=== PATIENT | male | born 1965 | race Hispanic/Latino ===

== ENCOUNTER 2017-12-08 17:49 | Emergency (ER) | payer BC, SELFPAY ==
[2017-12-08 17:50] VITALS: BP 130/66; PULSE 102; RESP 18; TEMP 37.1; O2SAT 99; BMI 34.8
[2017-12-08] MEDS: Diphth,Pertuss(Acell),Tet Vac 0.5 ML Vial IM (18:26)
--- NOTE | 2017-12-08 18:35 | ED.DCSUM_ITS ---
- ER Visit Summary Date of Service: 12/08/17 Chief Complaint: Laceration History of Present Illness: The patient is a [address] Collin Livingston III. He is right-hand dominant. He reports that he suffered a laceration to his left palm at work approximately 4 hours ago. He denies any pain. He is unsure when his last tetanus shot was. He denies any paresthesias distally. Physical Examination: Vitals: Stable. Afebrile. General: Well-nourished and well-developed. Head: Normocephalic atraumatic. Neck: Supple, no lymphadenopathy. No JVD. Nontender. Cardiovascular: Regular rate and rhythm. No murmurs. Respiratory: No respiratory distress. Clear to auscultation bilaterally. Abdominal: Soft, nontender, nondistended, normal bowel sounds. No guarding, rebound, or peritoneal signs. Back: Nontender. Extremities: Nontender, no edema. Skin: 1.5 cm L-shaped laceration over the distal portion of his second metacarpal on the palmar surface of his hand. He is neurovascular intact distally. Neurologic: Alert and oriented ?3. Cranial nerves II through XII are intact. Normal strength and sensation. Psych: Normal affect. Emergency Department Course and Treatment: I discussed treatment options with the patient and he has chosen to allow this to heal by secondary intention. He had his tetanus updated. Treatment Plan: He will be discharged instructions to follow-up Dr. Collin Livingston III as needed. Return to the emergency department for any worsening symptoms. Disposition: To home in improved and stable condition. Impression: 1. Laceration left palm, 1.5 cm, not repaired. This note was generated with [employer] dictation software. It may contain incorrect words, spelling, and punctuation that were not noted in review of the chart prior to signing ED Disposition - Plan for ED Patient: Disposition: Home or Assisted Living Chief Complaint: Laceration Instructions: ED Laceration Small Superf No Sutr Prescriptions: Mupirocin Calcium [Bactroban] 30 gm TP 4X/DAY #1 tube Referrals: Collin Livingston III, MD [Primary Care Provider] - As Needed
[2017-12-08 18:45] VITALS: RESP 19
== END 2017-12-08 18:46 | disposition home or self-care (01) ==
LOC: ED 18:23
PROVIDERS: Emergency Provider Emergency Medicine; Family Provider Family Medicine; PCP Family Medicine
DX: S61.412A Laceration without foreign body of left hand, initial encounter (principal); X58.XXXA Exposure to other specified factors, initial encounter; Y93.9 Activity, unspecified; Y92.9 Unspecified place or not applicable; Y99.0 Civilian activity done for income or pay
CPT/HCPCS: 90715; 99283

== ENCOUNTER 2020-09-23 14:56 | Outpatient (RCR) | payer OTHER, SELFPAY ==
[2020-10-14] MEDS: COVID-19 VACC, MRNA(PFIZER)/PF 30 MCG/0.3 ML SYRINGE IM (07:59)
== END 2020-12-16 23:59 ==
LOC: IMMUN 14:56
PROVIDERS: PCP Family Medicine; Referring Provider Family Medicine; Visit Provider Family Medicine
DX: Z23 Encounter for immunization (principal)
CPT/HCPCS: 0001A; 0002A; 91300

== ENCOUNTER 2022-10-08 21:28 | Emergency (ER) | payer OTHER, SELFPAY ==
[2022-10-08 21:28] VITALS: BP 186/71; PULSE 96; RESP 16; TEMP 36.6; O2SAT 97; BMI 34.1
--- NOTE | 2022-10-08 22:43 | CT_ITS ---
EXAM: CT HEAD WITHOUT INTRAVENOUS CONTRAST CLINICAL INDICATION: head injury TECHNIQUE: Multiple axial images were obtained of the head without intravenous contrast. This CT exam was performed using one or more of the following dose reduction techniques: automated exposure control, adjustment of the mA and/or kV according to patient size, and/or use of iterative reconstruction technique. This report was created using CAD Best report generation technology. RADIATION DOSE: CTDIvol = 44.99 mGy, DLP = 846.73 mGy-cm. COMPARISON: None. FINDINGS: BRAIN AND EXTRA-AXIAL SPACES: Unremarkable. No intra- or extra-axial hemorrhage. No evidence of acute infarct. No intracranial mass or mass effect. There is preservation of the corona/white matter interface. Posterior fossa structures are unremarkable. Ventricles are appropriate for age. No hydrocephalus. Basal cisterns are patent. BONES/JOINTS: Unremarkable. No discrete lytic or blastic abnormalities. SOFT TISSUES: Large right parietal scalp hematoma. SINUSES: Unremarkable as visualized. Clear. MASTOID AIR CELLS: Unremarkable. Clear. ORBITS: Visualized globes, extraocular muscles, optic nerves and retrobulbar fat appear unremarkable. CT/Brain/Head without Contrast IMPRESSION: 1. Large right parietal scalp hematoma. 2. No acute intracranial abnormality. Electronically Signed: Ke Davila MD at 23:01 EDT ,
--- NOTE | 2022-10-08 22:55 | EX.ED.DYSGE1 ---
HPI History of Present Illness Chief Complaint: Head Injury Narrative Narrative: Patient is a 56-year-old male with no significant reported past medical history. He states around 430 to 5 PM this evening he was standing on a step in his basement roughly 2-3 steps up when the step broke. This caused him to fall backwards and he struck the back of his head on the concrete floor. He denies any loss of consciousness history of bleeding disorder or blood thinner use. He states he was able to get up and ambulate and since that time has had just mild headache but denies light sensitivity change in vision nausea or vomiting. Family came over and noticed the cut to the back of his head and with the report of trauma have concern that he could have underlying brain damage and or need sutures and therefore he presents for evaluation [facility] Medical History no medical history no medical history Home Medications mupirocin calcium 2 % topical cream 30 gm TP 4X/DAY #1 tube 12/08/17 [Rx Last Taken Unknown] Allergy/AdvReac Type Severity Reaction Status Date / Time No Known Allergies Allergy Verified 10/08/22 21:30 Social History Smoking Status: Former smoker ROS ROS ED Constitutional Constitutional ED: Denies chills or fever(s) Eyes Eyes: Denies blurry vision or change in vision ENT ENT ED: Denies sore throat Cardiovascular Cardiovascular: Denies chest pain Respiratory/Chest Respiratory/Chest: Denies cough or dyspnea Gastrointestinal Gastrointestinal: Denies abdominal pain, diarrhea, nausea or vomiting Genitourinary Genitourinary ED: Denies dysuria Musculoskeletal Musculoskeletal: Denies myalgias or neck pain Integumentary Reports other Details: Positive scalp laceration ; Denies rash Neurologic Neurologic: Reports headache(s); Denies paresthesias or weakness Hematologic/Lymphatic Hematologic/Lymphatic: Denies easy bleeding or easy bruising EXAM Physical Exam Const Vital Signs: 10/08/22 21:28 10/08/22 22:07 Temperature 97.8 F Temperature Source Temporal Pulse Rate 96 Respiratory Rate 16 Respiratory Effort Normal Non-Labored Respiratory Depth Normal Respiratory Pattern Normal Blood Pressure 186/71 H Blood Pressure Mean 109 Pulse Ox 97 Oxygen Delivery Method Room Air Room Air Positive well nourished and well developed General Appearance ED: well developed HEENT HEENT Narrative: Patient has a 1 x 2 hematoma to the mid to right sided occipital portion of his scalp. There is a 1.5 cm linear laceration that is subcutaneous layer deep with minimal ooze of blood in the center of this consistent with trauma. No signs of depressed or basilar skull fracture Eyes PERRL and EOMs intact bilaterally Neck supple Neck Narrative: No midline pain with palpation no bony deformity or step-off of the cervical spine. Patient has full active range of motion without pain Chest Wall palpation of chest normal Resp normal respiratory effort and clear to auscultation bilaterally Cardio regular rate and regular rhythm Back/Spine Back/Spine Narrative: No bony deformity or step-off of the thoracic or lumbar spine no midline pain with palpation Extremity normal to inspection Extremity Narrative: Pelvis is stable there is no shortening or external rotation of either lower extremity. Patient is able to move all extremities without difficulty Neuro oriented x3 and CN's II-XII intact bilaterally Sensorium / Orientation: alert Psych mental status grossly normal Skin Skin Narrative: Hematoma and scalp laceration as documented above MDM MDM MDM Narrative Medical decision making narrative: Patient arrived to the ER 5 to 6 hours after the report of his injury. He also stated it was a mechanical fall and therefore there is no need for cardiac or syncope work-up. He has mild headache but otherwise no light sensitivity change in vision nausea vomiting or signs of depressed/basilar skull fracture. Still as he struck the occipital portion of his head there is concern that this would be present and I elected to perform a CT scan of the head. He has no midline neck tenderness and moves his neck in all directions without pain so I felt no need for a CT of the cervical spine. Head CT confirmed a right scalp hematoma consistent with his trauma but there is no underlying skull fracture or brain bleed. The patient's tetanus status was updated because of the laceration and the wound was closed with maurisio as documented below. At this time as the wound is closed and CT shows no signs of internal injury such as skull fracture or brain bleed he is otherwise safe for discharge Patient had the scalp laceration cleaned with chlorhexidine. It was anesthetized with 5 mL of 2% lidocaine with epinephrine in local fashion. The wound was copiously irrigated with normal saline. Then 5 maurisio were placed in the wound bring the edges together with good approximation. Patient tolerated procedure well without complication History & Record Review Discussion w/independent historian: Patient and Family Radiography Diagnostic Testing: Clinical Impression(s) from Imaging Studies Brain CT 10/08/22 22:43 IMPRESSION: 1. Large right parietal scalp hematoma. 2. No acute intracranial abnormality. Electronically Signed: Ke Davila MD at 23:01 EDT , Discharge Plan Triage Chief Complaint: Head Injury ED Provider: Dg Delong Dx/Rx/DC Orders Clinical Impression: Laceration of scalp, Hematoma of occipital region of scalp, Closed head injury Instructions: ED Hematoma, ED Laceration Scalp Stitches or Lerna Prescriptions: No Action mupirocin calcium 15 GM cream 30 gm TP 4X/DAY Qty: 1 0RF Primary Care Provider: Marvel Fung Referrals: NOT,DEFINED [Non-Staff] - Disposition Disposition: Home, Self Care Discharge Date/Time: 10/09/22 00:31
[2022-10-09] MEDS: Diphth,Pertuss(Acell),Tet Vac 0.5 ML Vial IM (00:03)
[2022-10-09] MEDS: Lidocaine 2% /Epi 1:100 (20ml) 20 ML VIAL INFILT (00:11)
== END 2022-10-09 00:31 | disposition home or self-care (01) ==
LOC: ED 23:06
PROVIDERS: Emergency Provider Emergency Medicine; PCP Family Medicine; Visit Provider Emergency Medicine
DX: S01.01XA Laceration without foreign body of scalp, initial encounter (principal); S06.310A Contusion and laceration of right cerebrum without loss of consciousness, initial encounter; Z87.891 Personal history of nicotine dependence; W10.9XXA Fall (on) (from) unspecified stairs and steps, initial encounter; Z23 Encounter for immunization
CPT/HCPCS: 12001; 70450; 90471; 90715; 96372; 99282; A4216

== ENCOUNTER 2023-06-30 04:14 | Emergency (ER) | payer OTHER, SELFPAY ==
--- NOTE | 2023-06-30 04:17 | ED.VIS.BACK ---
HPI History of Present Illness Chief Complaint: Back [facility] Medical History (Updated 06/30/23 @ 04:23 by Sanket Millan) Diabetes Home Medications cyclobenzaprine 10 mg tablet 10 mg PO TID PRN PRN muscle spasm 06/30/23 [History Last Taken Unknown] metformin 500 mg tablet,extended release 24 hr 500 mg PO BID 06/30/23 [History Last Taken Unknown] prednisone 20 mg tablet 40 mg PO DAILY 06/30/23 [History Last Taken Unknown] sertraline 50 mg tablet 50 mg PO QHS 06/30/23 [History Last Taken Unknown] Allergy/AdvReac Type Severity Reaction Status Date / Time No Known Allergies Allergy Verified 06/30/23 04:24 Social History Smoking Status: Former smoker EXAM Physical Exam Const Vital Signs: 06/30/23 04:20 Temperature 97.2 F L Temperature Source Temporal Pulse Rate 78 Respiratory Rate 18 Blood Pressure 152/80 H Blood Pressure Mean 104 Pulse Ox 98 Oxygen Delivery Method Room Air MDM MDM MDM Narrative Medical decision making narrative: HISTORY OF PRESENT ILLNESS: 57-year-old male presents with back pain. Notes 2 days of back pain. There is no sign event. No falls. No recent trauma. Does not really increasing activity. Patient denies any saddle anesthesia, urinary tension, bowel or bladder incontinence, lower extremity weakness, fever or IV drug use, no recent spinal manipulation or surgery, no recent urinary catheterization. REVIEW OF SYSTEMS: All other systems reviewed and are negative except as noted in the history of present illness. At least 10 review of systems reviewed and are negative except as noted in history of present illness. PHYSICAL EXAM: Nursing triage notes reviewed, Vital signs reviewed Constitutional: please see mdm HENT: MMM Eyes: Pupils equal round and reactive to light, Extraocular muscles intact Neck: No stridor, no JVD, full neck ROM Lungs: Clear to auscultation, No wheezing or rales. No increased work of breathing, no conversational dyspnea, no accessory muscle use, no nasal flaring. No respiratory distress noted Heart: Regular rate and rhythm, No murmurs, No rubs and No gallops, 2+ distal pulses (radial, femoral, posterior tibial) in all extremities Abdomen: Soft, there is no tenderness, rigidity, rebound or guarding, no obvious peritoneal signs, no palpable pulsatile abdominal masses, no auscultated abdominal bruit : No CVAT Extremities: No edema Back: No midline step-offs or deformities Neuro: Intact sensation L1-S1 dermatomal distributions. Intact 5/5 strength in hip flexion (T12-L3). Knee extension (L2-L4). Ankle dorsiflexion (L4-L5). Ankle plantar flexion (S1). Great toe extension (L5). 2+ patellar and Achilles DTRs. Skin: No rash or lesions noted MEDICAL DECISION MAKING: Chief Complaint: Back pain External records reviewed: Imaging studies reviewed: No prior imaging of the axial skeleton Factors affecting care: Type 2 diabetes Social determinants of health: No IV drug use History obtained from others: Patient's daughter Consults: none ALL IMAGES (IF OBTAINED) HAVE BEEN PERSONALLY REVIEWED AND INTERPRETED BY MYSELF. MDM Narrative: The patient was hemodynamically stable, afebrile, nontoxic-appearing. Exam with TTP over right lateral lumbar spine. There is no trauma to suggest bony injury. There is no indication for imaging at this time. Patient with p.o. Valium, IM Toradol, lidocaine patches do not p.o. Tylenol. Noted only minimal improvement. I considered the following differential diagnosis: Musculoskeletal back pain, space-occupying lesion of the spinal (epidural abscess, epidural hematoma), cauda equina, conus medullaris, fracture dislocation, AAA, nephrolithiasis, pyelonephritis, aortic dissection The patient presented complaining of back pain. There was no history of recent fall or trauma. There was no evidence to support genitourinary etiology. There is also no evidence to suggest vascular pathology such as AAA dissection. No fevers or other evidence to suspect infectious processes, abscess, osteomyelitis etc. The patient?s neurological exam is normal with normal motor and sensory. There is no saddle paresthesias reported and no bowel or bladder incontinence or retention. I suspect the pain is mechanical in nature. Clinical suspicion, plan of care and management was discussed with the patient. The patient was instructed to follow up with their health care provider. The patient was also instructed to return if the pain worsened, changed, or developed weakness or bowel or bladder trouble. The patient agreed with plan. I completed a structured, evidence-based clinical evaluation to screen for acute non-traumatic spinal emergencies. The patient has a normal detailed neurologic exam and red flag historical factors were negative. The evidence indicates that the patient is very low risk for an acute spinal emergency and this is consistent with my clinical intuition. The risk of further workup is higher than the likelihood of the patient having a spinal epidural abscess or other dangerous emergency spinal condition. It is, therefore, in the patient?s best interest not to do additional emergent testing at this time. Shared Decision-Making I have discussed with the patient my clinical impression and the result of an evidence-based clinical evaluation to screen for spinal epidural abscess and other spinal emergencies, as well as the risk of further testing and hospitalization. The evidence shows that the risk for an acute spinal emergency is less than 1%. Although the risk of an acute spinal emergency has not been completely eliminated, the risks of further testing likely exceed any potential benefit, and the patient agrees with not pursuing further emergent evaluation for causes of back pain at this time. The patient and/or family, caregivers express understanding. The patient and/or family, caregivers agrees with the plan. Total critical care time today provided was at least 0 minutes. This excludes separately billable procedures. Critical care time (if documented) is secondary to the patient having high probability of clinically significant/life threatening deterioration in the patient's condition which required my urgent intervention. 1. Lumbar radiculopathy Disposition: Discharge home Migel Loyola DO Discharge Plan Triage Chief Complaint: Back ED Provider: Migel Loyola Dx/Rx/DC Orders Instructions: Understanding Lumbar Radiculopathy Prescriptions: No Action cyclobenzaprine 10 mg tablet 10 mg PO TID PRN PRN (Reason: muscle spasm) Patient Comments: take 1 tablet by mouth three times a day if needed for muscle spasm metformin 500 mg tablet extended release 24 hr 500 mg PO BID prednisone 20 mg tablet 40 mg PO DAILY Patient Comments: take 2 tablets by mouth once daily for 5 days sertraline 50 mg tablet 50 mg PO QHS Stand Alone Forms: ED Work / School Excuse, Work / School Excuse Primary Care Provider: Marvel Fung Referrals: Marvel Fung MD [Primary Care Provider] - Activity Restrictions/Additional Instructions: Thank you for trusting us with your care today! Please take Tylenol (2 pills, 650 mg), ibuprofen (2 pills, 400 mg) every 6 hours as needed for pain and fever control. Please go to your pharmacy or drugstore and obtain Salonpas lidocaine patches. Please return to the emergency department if your symptoms change or worsen. Specifically develop bowel or bladder incontinence, urinary retention, weakness or loss sensation in your legs, urinary retention. Please follow with your primary care physician for further outpatient evaluation and management. Disposition Disposition: Home, Self Care Discharge Date/Time: 06/30/23 05:08
[2023-06-30 04:20] VITALS: BP 152/80; PULSE 78; RESP 18; TEMP 36.2; O2SAT 98; BMI 33.9
[2023-06-30] MEDS: Acetaminophen 325 MG Tablet 650 MG PO (04:46)
[2023-06-30] MEDS: diazePAM 2 MG Tablet 4 MG PO (04:46)
[2023-06-30] MEDS: Lidocaine 5% Patch 1 PATCH TOPICAL (04:47)
[2023-06-30] MEDS: Ketorolac 15 MG/ML Vial IM (04:49)
[2023-06-30 05:04] VITALS: PULSE 81; RESP 18; O2SAT 96
== END 2023-06-30 05:08 | disposition home or self-care (01) ==
LOC: ED 04:41
PROVIDERS: Emergency Provider Emergency Medicine; PCP Family Medicine; Visit Provider Emergency Medicine
DX: M54.16 Radiculopathy, lumbar region (principal); E11.9 Type 2 diabetes mellitus without complications; Z87.891 Personal history of nicotine dependence
CPT/HCPCS: 96372; 99283

== ENCOUNTER 2025-03-11 01:30 | Emergency (ER) | payer OTHER, SELFPAY ==
[2025-03-11 01:30] VITALS: BP 154/71; PULSE 66; RESP 16; TEMP 36.8; O2SAT 97; BMI 32.3
--- NOTE | 2025-03-11 02:49 | EKG12_ITS ---
Test Reason : Blood Pressure : */* mmHG Vent. Rate : 67 BPM Atrial Rate : 67 BPM P-R Int : 142 ms QRS Dur : 102 ms QT Int : 422 ms P-R-T Axes : 60 16 57 degrees QTcB Int : 445 ms Normal sinus rhythm with sinus arrhythmia Nonspecific T wave abnormality Abnormal ECG Confirmed by Ke Bravo ([id number]), staff editor GIO LEÓN ([id number]) on 03/12/2025 10:47:11 AM Referred By: Confirmed By: Ke Bravo
--- NOTE | 2025-03-11 03:00 | RAD_ITS ---
PROCEDURE: CHEST PA AND LATERAL 03/11/2025 REASON FOR EXAM: SOB TECHNIQUE: Procedure Code: RADCXR Modality: DX Procedure: CHEST PA AND LATERAL COMPARISON: None. FINDINGS: The lungs are expanded. There is no demonstrated parenchymal abnormality. There is no demonstrated pleural abnormality. Normal heart and pericardium. Normal mediastinum and jackie. Normal visualized pulmonary arteries. Normal visualized aortic arch and descending thoracic aorta. Normal visualized thoracic spine. Normal visualized ribs, clavicles, and shoulders. There is no demonstrated abnormality of the visualized soft tissue structures of the upper abdomen. RAD/Chest PA and Lateral IMPRESSION: No evidence for acute abnormality. Reading [facility]
[2025-03-11 03:03] LABS: Hematocrit 37.6 % (40-54); Hemoglobin 12.8 g/dL (13.0-16.5); Immature Granulocytes Count 0.020 X10^3/uL (0.0-0.0); Mean Corp Hgb Conc 34.0 g/dL (32-36); Mean Corpuscular Volume 87.4 fL (80-94); Mean Platelet Vol. 9.3 fl (6.2-12.0); NRBC Flagged by Analyzer 0 % (0-5); Platelet Count 248 K/mm3 (150-450); RBC Distribution Width CV 13.0 % (11.6-14.6); RBC Distribution Width SD 41.4 fl (35.1-43.9); Red Blood Count 4.30 M/mm3 (4.6-6.2); White Blood Count 7.1 K/mm3 (4.4-11.0)
[2025-03-11 03:32] LABS: Anion Gap 12 (5-15); BUN 25 mg/dL (4-19); BUN/Creat Ratio 29.3 RATIO (10-20); Calcium,Total 8.9 mg/dL (7.6-11.0); Carbon Dioxide 20.7 mmol/L (21.0-32.0); Chloride 104 mmol/L (98-108); Estimated Creatinine Clearance 97.52 ml/min (50-250); Glucose 164 mg/dL (70-99); Potassium 3.8 mmol/L (3.3-5.1)
--- OUTSIDE RECORDS SUMMARY | 2025-03-11 04:06 | XMS RPT_ITS | CCD ---
Author Organization [facility] Care Team Providers Care Marriage And Family Social Worker Name Role Phone Marvel Collado MD Primary Care Provider Rigoberto Shrestha MD Primary Care Provider Rigoberto Shrestha MD Primary Care Provider Marvel Collado MD Primary Care Provider Haagen FUELS ENGINEER.Sowmya AVILA Unavailable Suppan FUELS ENGINEER.Natalie AVILA Unavailable Suppan FUELS ENGINEER.AUSTIN, Natalie A Unavailable [phone] Marvel Collado Referring Unavailable Kenton, Marvel Primary Care Unavailable Omi Guerra Attending Unavailable HENRIETTA, RIGOBERTO Primary Care Unavailable HENRIETTA, RIGOBERTO Referring Unavailable HENRIETTA, RIGOBERTO Primary Care Unavailable HENRIETTA, RIGOBERTO Primary Care Unavailable MARVEL KNIGHT Referring Unavailable HENRIETTA, RIGOBERTO Primary Care Unavailable HENRIETTA, RIGOBERTO Primary Care Unavailable HENRIETTA, RIGOBERTO Referring Unavailable HENRIETTA, RIGOBERTO Primary Care Unavailable RIGOBERTO SHRESTHA Attending Unavailable HENRIETTA, RIGOBERTO Primary Care Unavailable HENRIETTA, RIGOBERTO Attending Unavailable UCHE OSEGUERA Referring Unavailab le HENRIETTA, RIGOBERTO Primary Care Unavailable HENRIETTA, RIGOBERTO Primary Care Unavailable UCHE OSEGUERA Attending Unavailab le HENRIETTA, RIGOBERTO Primary Care Unavailable MARVEL KNIGHT Attending Unavailable Medications Current Medications Medication Drug Class(es) Dates Sig (Normalized) Sig (Original) acyclovir 0.05 mg/mg topical ointment (3 sources) Herpesvirus Nucleoside Analog DNA Polymerase Inhibitor, Herpes Simplex Virus Nucleoside Analog DNA Polymerase Inhibitor, Herpes Zoster Virus Nucleoside Analog DNA Polymerase Inhibitor Start: 11-04-2021 End: 11-08-2021 acyclovir (ZOVIRAX) 5 % ointment Apply to affected area five times daily for 4 days. 5 g 5 11/04/2021 11/08/2021 Active Start: 10-22-2021 End: 10-26-2021 acyclovir (ZOVIRAX) 5 % crea Apply 1 application to affected area five times daily for 4 days. Use for 4 days with viral sores. Location: lips 5 g 5 10/22/2021 10/26/2021 Start: 07-30-2020 acyclovir (ZOV IRAX) 5 % crea Apply 1 application to affected area five times daily. Use for 4 days with viral sores. Location: lips 5 g 5 07/30/2020 Active Comment on above: Apply 1 application to affected area five times daily. Use for 4 days with viral sores. Location: lips Apply to affected ar ea five times daily for 4 days. [id number] 200 actuat albuterol 0.09 mg/actuat metered dose inhaler (4 sources) beta2-Adrenergic Agonist Start: take 2 puff(s) by inhalation every six hours as needed for wheezing albuterol HFA (PROVENTIL HFA, VENTOLIN HFA) 90 mcg/actuation inhaler Inhale 2 puffs as instructed every 6 hours as needed for wheezing/shortness of breath. 8 g 11/15/2024 Active B Complex-Folic Acid (B COMPLEX 1, WITH FOLIC ACID,) 0.4 mg tab (20 sources) Start: take 1 tablet by mouth once daily B Complex-Folic Acid (B COMPLEX 1, WITH FOLIC ACID,) 0.4 mg tab Take 1 tablet by mouth once daily. 01/20/2021 Active Start: 01-20-2021 take 1 tablet by kary th once daily B Complex-Folic Acid (B COMPLEX 1, WITH FOLIC ACID,) 0.4 mg tab Take 1 tablet by mouth once daily. 0 01/20/2021 Active Comment on above: Take 1 tablet by kary th once daily. benzonatate 100 mg oral capsule (5 sources) Non-narcotic Antitussive Start: 11-25-19 End: 12-05-19 take 1 capsule by mouth three times daily as needed benzonatate (TESSALON PERLE) 100 mg capsule Indications: Sinobronchitis Take 1 capsule by mouth three times a day as needed for up to 10 days. 30 capsule 11/24/2024 12/04/2024 Active Start: 10-02-2024 End: 10-09-2024 take 1 capsule by mouth every eight hours as needed benzonatate (TESSALON PERLE) 100 mg capsule Take 1 capsule by mouth three times a day as needed for cough for up to 7 days. 21 capsule 10/02/2024 10/09/2024 Active CPAP (20 sources) Start: 12-08-2016 CPAP AutoPAP 5 -20 cmH2O, suitable mask, humidity, filters. Lifetime supplies. Dx: G47.33 1 Device 12/08/2016 Active Start: 12-08-2016 CPAP AutoPAP 5 -20 cmH2O, suitable mask, humidity, filters. Lifetime supplies. Dx: G47.33 1 Device 0 12/08/2016 Active Comment on above: AutoPAP 5-20 cmH2O, suitable mask, humidity, filters. Lifetime supplies. Dx: G47.33 cyclobenzaprine hydrochloride 10 mg oral tablet (20 sources) Muscle Relaxant Start: 07-15-19 take 1 tablet by mouth three times daily as needed for muscle spasms cyclobenzaprine (FLEXERIL) 10 mg tablet Indications: Sciatica, right side Take 1 tablet by mouth three times a day as needed for muscle spasm. 30 tablet 07/15/2023 Active Start: 10-22-2022 take 1 tablet by kayr th every eight hours as needed cyclobenzaprine (FLEXERIL) 10 mg tablet Take 1 tablet by mouth three times a day as needed for muscle spasm. 15 tablet 0 06/28/2023 Active Comment on above: Take 1 tablet by kary th three times daily as needed for muscle spasm. Take 1 tablet by kary th three times a day as needed for muscle spasm. doxycycline hyclate 100 mg oral tablet (2 sources) Tetracycline-cla ss Drug Start: 11-15-2024 End: 11-22-2024 take 1 tablet by mouth twice daily doxycycline (VIBRA-TABS) 100 mg tablet Take 1 tablet by mouth two times a day for 7 days. 14 tablet 11/15/2024 11/22/2024 Active Start: 01-09-2024 End: 01-16-2024 take 1 tablet by mouth twice daily doxycycline (VIBRA-TABS) 100 mg tablet Take 1 tablet by mouth two times a day for 7 days. 14 tablet 0 01/09/2024 01/16/2024 Active erythromycin 250 mg oral tablet (20 sources) Macrolide, Macrolide Antimicrobial Start: 03-23-2022 End: 05-26-2024 take 1 tablet by mouth once daily erythromycin base 250 mg tablet Indications: Rosacea Take 1 tablet by mouth once daily. 30 tablet 11 05/26/2024 Active Comment on above: Take 1 tablet by kary th once daily. fluticasone propionate 0.05 mg/actuat metered dose nasal spray (7 sources) Corticosteroid Start: 10-02-2024 take 1 spray(s) nasal route once daily fluticasone (FLONASE ALLERGY RELIEF) 50 mcg/actuation nasal spray Use 1 Belcher in each nostril once daily. 11.1 mL 10/02/2024 Active loratadine 10 mg oral tablet (2 sources) Start: 10-02-2024 End: 10-09-2024 take 1 tablet by mouth once daily loratadine (CLARITIN) 10 mg tablet Take 1 tablet by mouth once daily for 7 days. 7 tablet 10/02/2024 10/09/2024 Active 24 hr metFORMIN hydrochloride 500 mg extended release oral tablet (20 sources) Biguanide Start: 06-30-2023 take 500 mg by mouth twice daily Metformin Active 500 MG PO TWICE A DAY June 30, 2023 12:00am Start: 09-28-2021 End: 05-26-2025 take 1 tablet by mouth once daily at breakfast metFORMIN ER (GLUCOPHAGE XR) 500 mg 24 hr tablet Indications: Prediabetes Take 1 tablet by mouth daily with breakfast. 90 tablet 3 05/26/2024 05/26/2025 Active Start: 09-18-2020 End: 09-25-2021 take 1 tablet by mouth once daily at breakfast metFORMIN ER (GLUCOPHAGE XR) 500 mg 24 hr tablet Indications: Prediabetes Take 1 tablet by mouth daily with breakfast. 90 tablet 3 09/18/2020 09/25/2021 Discontinued Comment on above: Take 1 tablet by kary th daily with breakfast. Take 2 tablets by mo uth daily with breakfast. metroNIDAZOLE 0.01 mg/mg topical gel (20 sources) Nitroimidazole Antimicrobial Start: 12-13-2022 End: 05-26-2024 metroNIDAZOLE (METROGEL) 1 % Topical Gel Apply 1 application to affected area once daily. Location: cheeks and forehead 60 g 5 05/26/2024 Active Start: 08-20-2019 End: 03-23-2022 metroNIDAZOLE 1 % gel Apply 1 application to affected area once daily. Location: face 60 g 5 08/20/2019 03/23/2022 Discontinued (Lack of Efficacy) Comment on above: Apply 1 application to affected area once daily. Location: face Apply 1 application to affected area once daily. Location: cheeks and forehead MV with Ssy-Fvfdqpbq-Hlsbv n (CENTRUM SILVER) 0.4-300-250 mg-mcg-mcg tab (20 sources) Start: 01-20-2021 take 1 tablet by mouth once daily MV with Tgl-Pfzcpeqa-Etdu in (CENTRUM SILVER) 0.4-300-250 mg-mcg-mcg tab Take 1 tablet by mouth once daily. 01/20/2021 Active Start: 01-20-2021 take 1 tablet by kary th once daily MV with Vdw-Fuimshyh-Mfepyp (CENTRUM SILVER) 0.4-300-250 mg-mcg-mcg tab Take 1 tablet by mouth once daily. 0 01/20/2021 Active Comment on above: Take 1 tablet by kary th once daily. nirmatrelvir tablet 300 mg (150 mg x 2) and ritonavir tablet 100 mg in a dose pack (PAXLOVID) (3 sources) Start: 05-30-20 End: 06-04-20 nirmatrelvir tablet 300 mg (150 mg x 2) and ritonavir tablet 100 mg in a dose pack (PAXLOVID) Administer TWO pink nirmatrelvir 150 mg tablets and ONE white ritonavir 100 mg tablet for a total of three tablets twice daily. 30 tablet 0 05/30/2023 06/04/2023 Active Comment on above: Administer TWO pink nirmatrelvir 150 mg tablets and ONE white ritonavir 100 mg tablet for a total of three tablets twice daily. omega-3 fatty acids 1,000 mg cap (20 sources) Start: 01-21-20 take 2 capsules by mouth once daily omega-3 fatty acids 1,000 mg cap Take 2 capsules by mouth once daily. 01/20/2021 Active Start: 01-20-2021 take 2 capsules by m outh once daily omega-3 fatty acids 1,000 mg cap Take 2 capsules by mouth once daily. 0 01/20/2021 Active Comment on above: Take 2 capsules by m outh once daily. predniSONE 20 mg oral tablet (4 sources) Start: 12-24-2023 End: 12-29-2023 take 1 tablet by mouth once daily at mealtime predniSONE (DELTASONE) 20 mg tablet Indications: Left sided sciatica Take 1 tablet by mouth once daily for 5 days. Take daily with food. 5 tablet 0 12/24/2023 12/29/2023 Active Start: 06-30-2023 take 40 mg by mouth once daily Prednisone Active 40 MG PO DAILY June 30, 2023 12:00am Start: 06-28-2023 End: 07-03-2023 take 2 tablets by mouth once daily predniSONE (DELTASONE) 20 mg tablet Take 2 tablets by mouth once daily for 5 days. 10 tablet 0 06/28/2023 07/03/2023 Active Comment on above: Take 2 tablets by mo [facility] once daily for 5 days. sertraline 50 mg oral tablet (20 sources) Serotonin Reuptake Inhibitor Start: 07-15-2023 End: 11-22-2024 take 1 tablet by mouth once daily sertraline (ZOLOFT) 50 mg tablet Indications: Severe anxiety with panic Take 1 tablet by mouth once daily. 90 tablet 1 05/26/2024 Active Start: 06-11-2020 End: 06-24-2023 take 1 tablet by mouth once daily sertraline (ZOLOFT) 50 mg tablet Indications: Severe anxiety with panic Take 1 tablet by mouth once daily. 30 tablet 11 06/11/2020 09/28/2022 Discontinued Comment on above: [facility] valACYclovir 1000 mg oral tablet (1 source) Herpesvirus Nucleoside Analog DNA Polymerase Inhibitor, Herpes Simplex Virus Nucleoside Analog DNA Polymerase Inhibitor, Herpes Zoster Virus Nucleoside Analog DNA Polymerase Inhibitor Start: 3 End: 3 take 2 tablets by mouth twice daily valACYclovir (VALTREX) 1 gram tablet Take 2 tablets by mouth two times a day for 1 day. 4 tablet 0 06/28/2023 06/29/2023 Active Comment on above: Take 2 tablets by mo [facility] two times a day for 1 day. zinc gluconate 77 mg oral lozenge (20 sources) Start: take 1 tablet by mouth once daily Zinc Gluconate 10 mg lozg Take 1 tablet by mouth once daily. 01/20/2021 Active Comment on above: Take 1 tablet by [facility] once daily. Completed/Discontinued Medications Medication Drug Class(es) Dates Sig (Normalized) Sig (Original) albuterol 0.833 mg/ml / ipratropium bromide 0.167 mg/ml inhalation solution (2 sources) Anticholinergic, beta2-Adrenergic Agonist Start: 11-15-2024 End: 11-15-2024 ipratropium-albute rol 3 mL nebulizer solution (DUONEB) Start: 11-15-2024 End: 11-15-2024 take 1 dose by inhalation once 3 mL, INHALATION, ONCE, 1 dose, On [facility] 11/15/24 at 2000, PROTECT FROM LIGHT. The unit-dose vial should remain stored in the protective foil pouch until time of use. Inhalational Spacing Device (1 source) Start: 11-15-2024 End: 11-15-2024 Inhalational Spacing Device 1 device one time only for 1 dose. 1 each 11/15/2024 11/15/2024 mupirocin 20 mg/ml topical cream (2 sources) RNA Synthetase Inhibitor Antibacterial Start: 12-08-2017 End: 06-30-2023 Mupirocin Calcium Discontinued 30 GM TP 4 TIMES DAILY December 07, 2017 11:00pm June 30, 2023 4:26am polyethylene glycol 3350 [id number] mg / potassium chloride 2970 mg / sodium bicarbonate 6740 mg / sodium chloride 5860 mg / sodium sulfate 11122 mg powder for oral solution (5 sources) Osmotic Laxative Start: 12-18-2021 End: 03-23-2022 peg 3350-Electrolytes (GOLYTELY) 236-22.74-6.74 -5.86 gram suspension Indications: Gastroesophageal reflux disease, unspecified whether esophagitis present , Abdominal cramps Refer to printed prep instructions from your provider. 4000 mL 0 12/18/2021 03/23/2022 Discontinued (Course of therapy completed) Comment on above: Refer to printed pre p instructions from your provider. Problems Active Problems Problem Classification Problem Date Documented Date Episodic/Chronic Abdominal pain (1 source) Finding of sensation of abdomen; Translations: [Unspecified abdominal pain] Episodic Anxiety disorders (20 sources) Severe anxiety (panic); Translations: [Panic disorder [episodic paroxysmal anxiety]] Onset: 05-15-2018 01-20-2021 Chronic Chronic obstructive pulmonary disease and bronchiectasis (1 source) Bronchitis, not specified as acute or chronic; Translations: [Sinobronchitis] Onset: 11-24-2024 Episodic Disorders of lipid metabolism (20 sources) Mixed hyperlipidemia; Translations: [Mixed hyperlipidemia] Onset: 05-21-2018 01-20-2021 Chronic Esophageal disorders (1 source) Gastroesophageal reflux disease; Translations: [Gastro-esophageal reflux disease without esophagitis] Chronic Immunizations and screening for infectious disease (2 sources) Viral screening status; Translations: [Encounter for screening for other viral diseases] Onset: 10-13-2024 10-04-2024 Episodic Osteoarthritis (20 sources) Arthritis of left knee; Translations: [Unilateral primary osteoarthritis, left knee] Onset: 09-29-2015 01-20-2021 Chronic Other aftercare (1 source) Wound finding; Translations: [Encounter for other specified aftercare] Episodic Other connective tissue disease (1 source) Pain of bilateral hands; Translations: [Pain in right hand] 10-24-2021 Episodic Other connective tissue disease (2 sources) Pain in right foot; Translations: [Pain in right foot] 07-05-2024 Episodic Other inflammatory condition of skin (20 sources) Rosacea; Translations: [Rosacea, unspecified] Onset: 09-29-2015 01-20-2021 Chronic Other inflammatory condition of skin (1 source) Rosacea, unspecified; Translations: [Rosacea] Onset: 01-20-2021 Chronic Other lower respiratory disease (1 source) Wheezing; Translations: [Wheezing] 11-15-2024 Episodic Other lower respiratory disease (3 sources) Productive cough ; Translations: [Productive cough] Onset: 11-24-2024 11-24-2024 Episodic Other lower respiratory disease (1 source) Wheezing; Translations: [Wheezing] Onset: 11-15-2024 Episodic Other non-traumatic joint disorders (2 sources) Acute ankle pain; Translations: [Pain in right ankle and joints of right foot] 07-05-2024 Episodic Other nutritional; endocrine; and metabolic disorders (20 sources) Obese class II; Translations: [Obesity, unspecified] Onset: 09-29-2015 01-20-2021 Chronic Other nutritional; endocrine; and metabolic disorders (1 source) Obesity, unspecified; Translations: [Obesity, Class II, BMI 35-39.9] Onset: 01-20-2021 Chronic Other upper respiratory infections (3 sources) Chronic sinusitis; Translations: [Chronic sinusitis, unspecified] Onset: 11-24-2024 11-15-2024 Chronic Other upper respiratory infections (2 sources) Sore throat symptom; Translations: [Acute pharyngitis, unspecified] 05-29-2023 Episodic Residual codes; unclassified (20 sources) Obstructive sleep apnea syndrome; Translations: [Obstructive sleep apnea (adult) (pediatric)] Onset: 12-08-2016 01-20-2021 Chronic Residual codes; unclassified (1 source) Obstructive sleep apnea (adult) (pediatric); Translations: [ZAHIDA (obstructive sleep apnea)] Onset: 10-22-2021 Chronic Spondylosis; intervertebral disc disorders; other back problems (20 sources) Cervical arthritis; Translations: [Spondylosis without myelopathy or radiculopathy, cervical region] Onset: 10-26-2021 10-26-2021 Chronic Unclassified (1 source) Cough, unspecified; Translations: [Cough, unspecified] Onset: 10-05-2024 Viral infection (2 sources) Recurrent herpes simplex labialis; Translations: [Herpesviral vesicular dermatitis] 06-28-2023 Episodic Past or Other Problems Problem Classification Problem Date Documented Da te Episodic/Chronic Diabetes mellitus without complication (20 sources) Prediabetes; Translations: [Prediabetes] Onset: 10-14-2015 Resolved: 07-15-2023 Episodic Gastritis and duodenitis (17 sources) Helicobacter pylori-associated gastritis; Translations: [Gastritis, unspecified, without bleeding] Onset: 07-08-2017 Resolved: 05-15-2018 05-15-2018 Episodic Open wounds of head; neck; and trunk (17 sources) Scalp laceration; Translations: [Laceration without foreign body of scalp, initial encounter] Onset: 07-15-2023 Resolved: 07-15-2023 10-17-2022 Episodic Other aftercare (20 sources) Patient encounter status; Translations: [Other exterminator helper termite (current) drug therapy] Onset: 01-20-2021 Resolved: 07-15-2023 01-20-2021 Episodic Other and unspecified benign neoplasm (20 sources) History of polyp of colon; Translations: [Personal history of colonic polyps] Onset: 01-20-2021 01-20-2021 Episodic Other connective tissue disease (20 sources) Plantar fasciitis; Translations: [Plantar fascial fibromatosis] Onset: 07-08-2017 Resolved: 07-15-2023 01-20-2021 Episodic Other connective tissue disease (20 sources) Impingement syndrome of shoulder region; Translations: [Impingement syndrome of unspecified shoulder] Onset: 11-01-2018 01-20-2021 Episodic Other connective tissue disease (20 sources) Cramp in lower limb; Translations: [Cramp and spasm] Onset: 03-23-2022 Resolved: 07-15-2023 Episodic Other connective tissue disease (1 source) Pain in right foot; Translations: [Foot pain, right] Onset: 07-05-2024 Episodic Other injuries and conditions due to external causes (17 sources) Closed injury of head; Translations: [Unspecified injury of head, initial encounter] Onset: 07-15-2023 Resolved: 07-15-2023 10-17-2022 Episodic Other non-traumatic joint disorders (1 source) Pain in right ankle and joints of right foot; Translations: [Acute right ankle pain] Onset: 07-05-2024 Episodic Other screening for suspected conditions (not mental disorders or infectious disease) (1 source) Encounter for screening for malignant neoplasm of prostate; Translations: [Screening for prostate cancer] Onset: 02-18-2024 Episodic Other upper respiratory disease (17 sources) Nasal congestion; Translations: [Nasal congestion] Onset: 12-08-2016 Resolved: 05-15-2018 05-15-2018 Episodic Residual codes; unclassified (20 sources) FH: Rheumatoid arthritis; Translations: [Family history of arthritis] Onset: 10-22-2021 10-22-2021 Episodic Residual codes; unclassified (16 sources) Unspecified problems with limbs and other problems; Translations: [Problem] Onset: 07-15-2023 Resolved: 07-15-2023 07-15-2023 Episodic Residual codes; unclassified (1 source) Family history of arthritis; Translations: [Family history of rheumatoid arthritis] Onset: 10-22-2021 Episodic Spondylosis; intervertebral disc disorders; other back problems (20 sources) Cervical radiculopathy; Translations: [Radiculopathy, cervical region] Onset: 11-01-2018 01-20-2021 Episodic Superficial injury; contusion (17 sources) Hematoma of occipital scalp; Translations: [Contusion of scalp, initial encounter] Onset: 07-15-2023 Resolved: 07-15-2023 10-17-2022 Episodic Results Test Name Value Interpretation Reference Range Facility [facility] 11-24-2024 CNOV Office Visit (FAMPWS ) JOSE FIERRO ([id number]) 1965 [facility] Date Time Provider Department 11/24/24 9:40 AM UCHE OSEGUERA During your visit today, we recorded the following information about you: Temperature Pulse Respiration Blood pressure 98.5 degrees 81/minute 18/minute 118/74 Weight 97.7 kg Uche Oseguera MD 11/24/2024 9:59 AM Signed Chief Complaint Patient presents with: Follow Up: Cough- continues from previous visit Recording using Tally[employer] software for draft documentation of the visit was discussed with the patient/authorized lead generation representative; all questions welcomed and answered. Patient/authorized lead generation representative agreed to proceed HPI Joseca Fierro is a 59 year old male who presents here today for Above Complaints. Accompanied today by his daughter Irene who is translating. Refusing hem inspector phone today. Cough: - Persistent cough since [facility] visit on November 15. - Initially presented with cough, chest congestion, sore throat, headache, sinus pressure, and nasal congestion. - Diagnosed with wheezing and sinobronchitis; started on albuterol inhaler PRN and doxycycline 100 mg BID for 7 days. - Symptoms have improved slightly, but cough remains. - Productive cough with yellow-green sputum. - Mild wheezing, more pronounced at night. - Mild chest pain and congestion when coughing. - Nasal congestion and sinus pressure have resolved. - Mild sore throat in the morning. - Denies fevers, chills, myalgias, or significant fatigue. - No new anosmia or ageusia. - Diarrhea occurred 3 days ago but has since resolved. - No history of asthma or COPD. - Using albuterol inhaler BID with some relief. - Taking DayQuil and another unspecified OTC medication without significant improvement. - Reports seeing floaters in vision. Past medical history, appointments, medications, allergies reviewed. Previous Medical History PAST MEDICAL HISTORY Diagnosis Date Arthritis of both hands 10/26/2021 mod Arthritis of left knee 09/29/2015 Arthritis of neck 10/26/2021 Mod Cervical radiculopathy 11/01/2018 Elevated hemoglobin A1c 10/14/2015 Family history of rheumatoid arthritis 10/22/2021 father Hemorrhoids History of colonic polyps 01/20/2021 Impingement syndrome of shoulder region 11/01/2018 Mixed hyperlipidemia 05/21/2018 Obesity, Class II, BMI 35-39.9 09/29/2015 ZAHIDA (obstructive sleep apnea) 12/08/2016 AutoPAP 5-20 DME [facility] Plantar fasciitis 07/08/2017 Radius fracture Rosacea Severe anxiety with panic 05/15/2018 Well adult exam 03/23/2022 Last done: 03/23/2022 Previous Surgical History PAST SURGICAL HISTORY Procedure Laterality Date COLONOSCOPY 01/20/2022 repeat in 5 years COLONOSCOPY FLX DX W/COLLJ SPEC WHEN PFRMD 10/27/2015 Colonoscopy EGD W/O BRSH SPEC VARICIES INJ 01/20/2022 Family History FAMILY HISTORY Problem Relation Age of Onset Stroke Mother Coronary Artery Disease Father Colon Cancer Father other (rheumatoid arthritis) Father Hypertension Sister Diabetes Brother from diabetic coma Lipids Brother Patient Allergies ALLERGIES No Known Allergies Current Medications Current Outpatient Medications on File Prior to Visit Medication Sig albuterol HFA (PROVENTIL HFA, VENTOLIN HFA) 90 mcg/actuation inhaler Inhale 2 puffs as instructed every 6 hours as needed for wheezing/shortness of breath. fluticasone (FLONASE ALLERGY RELIEF) 50 mcg/actuation nasal spray Use 1 Belcher in each nostril once daily. sertraline (ZOLOFT) 50 mg tablet Take 1 tablet by mouth once daily. metFORMIN ER (GLUCOPHAGE XR) 500 mg 24 hr tablet Take 1 tablet by mouth daily with breakfast. metroNIDAZOLE (METROGEL) 1 % Topical Gel Apply 1 application to affected area once daily. Location: cheeks and forehead erythromycin base 250 mg tablet Take 1 tablet by mouth once daily. cyclobenzaprine (FLEXERIL) 10 mg tablet Take 1 tablet by mouth three times a day as needed for muscle spasm. (Patient not taking: Reported on 11/15/2024) Zinc Gluconate 10 mg lozg Take 1 tablet by mouth once daily. MV with Waf-Wuznjkcs-Atftds (CENTRUM SILVER) 0.4-300-250 mg-mcg-mcg tab Take 1 tablet by mouth once daily. B Complex-Folic Acid (B COMPLEX 1, WITH FOLIC ACID,) 0.4 mg tab Take 1 tablet by mouth once daily. omega-3 fatty acids 1,000 mg cap Take 2 capsules by mouth once daily. blood sugar diagnostic (BLOOD GLUCOSE TEST) test strip Test blood sugar(s) 1 times daily. Dx: Type 2 DM - Uncontrolled E11.65 Insulin: No Lancets lancets Test blood sugar(s) 1 times daily. Dx: Type 2 DM - Uncontrolled E11.65 Insulin: No CPAP AutoPAP 5-20 cmH2O, suitable mask, humidity, filters. Lifetime supplies. Dx: G47.33 No current facility-administered medications on file prior to visit. Social History Social History Tobacco Use Smoking status: Never (more content not included)... Normal [facility] XR CHEST 2V FRONTAL/LATon XR CHEST 2V FRONTAL/LAT * * *Final Report* * * DATE OF EXAM: Nov 24 2024 10:07AM WOX 5291 - XR CHEST 2V FRONTAL/LAT / PROCEDURE REASON: Productive cough * * * * Physician Interpretation * * * * EXAMINATION: CHEST RADIOGRAPH (2 VIEW FRONTAL and LATERAL) CLINICAL HISTORY: Productive cough MQ: XC2_6 EXAM DATE/TIME: 11/24/2024 10:07 AM COMPARISON: No relevant prior studies available. RESULT: Lines, tubes, and devices: None. Lungs and pleura: Central peribronchial cuffing. No consolidation. No lung mass. No pleural effusion. No pneumothorax. Cardiomediastinal silhouette: Normal cardiomediastinal silhouette. Bones and soft tissues: Degenerative changes are present within the thoracic spine and acromioclavicular joints. IMPRESSION: Central peribronchial cuffing which may be seen with small airways inflammation/bronchitis. Manager System: JARET Transcribe Date/Time: Nov 24 2024 10:22A Dictated by : SUHA LEE MD This examination was interpreted and the report reviewed and electronically signed by: SUHA LEE MD on Nov 24 2024 10:23AM EST [id number] Normal [facility] XR Chest PA and Lateralon IMPRESSION: Central peribronchial cuffing which may be seen with small airways inflammation/bronchitis. Manager System: [facility]ITAL[facility] Transcribe Date/Time: Nov 24 2024 10:22A Dictated by : SUHA LEE MD This examination was interpreted and the report reviewed and electronically signed by: SUHA LEE MD on Nov 24 2024 10:23AM EST DIVISION OF RADIOLOGY * * *Final Report* * * DATE OF EXAM: Nov 24 2024 10:07AM WOX 5291 - XR CHEST 2V FRONTAL/LAT / PROCEDURE REASON: Productive cough * * * * Physician Interpretation * * * * EXAMINATION: CHEST RADIOGRAPH (2 VIEW FRONTAL & LATERAL) CLINICAL HISTORY: Productive cough MQ: XC2_6 EXAM DATE/TIME: 11/24/2024 10:07 AM COMPARISON: No relevant prior studies available. RESULT: Lines, tubes, and devices: None. Lungs and pleura: Central peribronchial cuffing. No consolidation. No lung mass. No pleural effusion. No pneumothorax. Cardiomediastinal silhouette: Normal cardiomediastinal silhouette. Bones and soft tissues: Degenerative changes are present within the thoracic spine and acromioclavicular joints. DIVISION OF RADIOLOGY Provider, [facility] - 11/24/2024 * * *Final Report* * * DATE OF EXAM: Nov 24 2024 10:07AM WOX 5291 - XR CHEST 2V FRONTAL/LAT / PROCEDURE REASON: Productive cough * * * * Physician Interpretation * * * * EXAMINATION: CHEST RADIOGRAPH (2 VIEW FRONTAL & LATERAL) CLINICAL HISTORY: Productive cough MQ: XC2_6 EXAM DATE/TIME: 11/24/2024 10:07 AM COMPARISON: No relevant prior studies available. RESULT: Lines, tubes, and devices: None. Lungs and pleura: Central peribronchial cuffing. No consolidation. No lung mass. No pleural effusion. No pneumothorax. Cardiomediastinal silhouette: Normal cardiomediastinal silhouette. Bones and soft tissues: Degenerative changes are present within the thoracic spine and acromioclavicular joints. IMPRESSION IMPRESSION: Central peribronchial cuffing which may be seen with small airways inflammation/bronchitis. Manager System: JARET Transcribe Date/Time: Nov 24 2024 10:22A Dictated by : SUHA LEE MD This examination was interpreted and the report reviewed and electronically signed by: SUHA LEE MD on Nov 24 2024 10:23AM EST [facility] Radiology Study observation (narrative) [facility] XR Chest PA and LateralOrder ed By: [facility] Provider on 11-24-2024 [facility] CNOVon 11-15-2024 CNOV Office Visit (WSTR ) JOSE FIERRO ([id number]) 1965 M [facility] Date Time Provider Department 11/15/24 7:30 PM MARVEL KNIGHT [facility] During your visit today, we recorded the following information about you: Temperature Pulse Respiration Blood pressure 99.6 degrees 62/minute 18/minute 118/72 Weight 99.8 kg Marvel Knight APRN.CLINICAL PHLEBOTOMIST 11/15/2024 8:11 PM Signed Subjective HPI Nontoxic-appearing male presents urgent care chief complaint cough chest congestion sore throat headache sinus pressure nasal congestion. Duration of symptoms 5 days. Associated symptoms listed above. Presents today for evaluation. Most prominent symptom today is cough and chest congestion. OTC medications Coricidin. Unknown sick contacts. Denies any chest pain hemoptysis or pleuritic pain. No high fevers. Past medical history prescription medications allergies reviewed .Patient presents with: Chest Congestion: cough, sinus pressure x 5 days PAST MEDICAL HISTORY Diagnosis Date Arthritis of both hands 10/26/2021 mod Arthritis of left knee 09/29/2015 Arthritis of neck 10/26/2021 Mod Cervical radiculopathy 11/01/2018 Elevated hemoglobin A1c 10/14/2015 Family history of rheumatoid arthritis 10/22/2021 father Hemorrhoids History of colonic polyps 01/20/2021 Impingement syndrome of shoulder region 11/01/2018 Mixed hyperlipidemia 05/21/2018 Obesity, Class II, BMI 35-39.9 09/29/2015 ZAHIDA (obstructive sleep apnea) 12/08/2016 AutoPAP 5-20 DME [facility] Plantar fasciitis 07/08/2017 Radius fracture Rosacea Severe anxiety with panic 05/15/2018 Well adult exam 03/23/2022 Last done: 03/23/2022 PAST SURGICAL HISTORY Procedure Laterality Date COLONOSCOPY 01/20/2022 repeat in 5 years COLONOSCOPY FLX DX W/COLLJ SPEC WHEN PFRMD 10/27/2015 Colonoscopy EGD W/O [facility] SPEC VARICIES INJ 01/20/2022 ALLERGIES Patient has no known allergies. MEDICATIONS fluticasone (FLONASE ALLERGY RELIEF) 50 mcg/actuation nasal spray Use 1 Belcher in each nostril once daily. sertraline (ZOLOFT) 50 mg tablet Take 1 tablet by mouth once daily. metFORMIN ER (GLUCOPHAGE XR) 500 mg 24 hr tablet Take 1 tablet by mouth daily with breakfast. metroNIDAZOLE (METROGEL) 1 % Topical Gel Apply 1 application to affected area once daily. Location: cheeks and forehead erythromycin base 250 mg tablet Take 1 tablet by mouth once daily. Zinc Gluconate 10 mg lozg Take 1 tablet by mouth once daily. MV with Btv-Nasdtlad-Eotmxq (CENTRUM SILVER) 0.4-300-250 mg-mcg-mcg tab Take 1 tablet by mouth once daily. B Complex-Folic Acid (B COMPLEX 1, WITH FOLIC ACID,) 0.4 mg tab Take 1 tablet by mouth once daily. omega-3 fatty acids 1,000 mg cap Take 2 capsules by mouth once daily. blood sugar diagnostic (BLOOD GLUCOSE TEST) test strip Test blood sugar(s) 1 times daily. Dx: Type 2 DM - Uncontrolled E11.65 Insulin: No Lancets lancets Test blood sugar(s) 1 times daily. Dx: Type 2 DM - Uncontrolled E11.65 Insulin: No CPAP AutoPAP 5-20 cmH2O, suitable mask, humidity, filters. Lifetime supplies. Dx: G47.33 cyclobenzaprine (FLEXERIL) 10 mg tablet Take 1 tablet by mouth three times a day as needed for muscle spasm. (Patient not taking: Reported on 11/15/2024) FAMILY HISTORY Problem Relation Age of Onset Stroke Mother Coronary Artery Disease Father Colon Cancer Father other (rheumatoid arthritis) Father Hypertension Sister Diabetes Brother from diabetic coma Lipids Brother Social History Tobacco Use Smoking status: Never Smokeless tobacco: Never Substance Use Topics Alcohol use: No Drug use: Never BP 118/72 Pulse 62 Temp 37.6 ?C (99.6 ?F) Resp 18 Wt 99.8 kg (220 lb 0.3 oz) SpO2 94% BMI 36.06 kg/m? Review of Systems Constitutional: Positive for fever and malaise/fatigue. Negative for chills. HENT: Positive for congestion and sore throat. Negative for ear discharge, ear pain and sinus pain. Eyes: Negative for blurred vision, pain, discharge and redness. Respiratory: Positive for cough. Negative for hemoptysis, sputum production, shortness of breath, wheezing and stridor. Cardiovascular: Negative for chest pain. Gastrointestinal: Negative for abdominal pain, diarrhea, nausea and vomiting. Musculoskeletal: Positive for myalgias. Skin: Negative for itching and rash. Neurological: Positive for headaches. Negative for dizziness. Objective Physical Exam Constitutional: General: He is not in acute distress. Appearance: He is not diaphoretic. HENT: Head: Normocephalic. Jaw: No trismus, tenderness, swelling or pain on movement. Nose: Congestion present. Right Sinus: Maxillary sinus tenderness present. Left Sinus: Maxillary sinus tenderness present. Mouth/Throat: Mouth: Mucous membranes are moist. Pharynx: Oropharynx is clear. Uvula midline. No pharyngeal swelling, oropharyngeal exudate, posterior o (more content not included)... Normal [facility] MUMPS IGG ABon 10-13-2024 MuV IgG Ql (S) Positive Normal Positive [facility] Comment on above: Order Comment: Speci men Type: BLOOD SPECIMENOrdering Facility: [facility] Address: [address] [place] [address] [place] [address] Result Comment: The result suggests recent or past exposure to Mumps virus or Mumps vaccination. The current test does not detect neutralizing antibodies. Positive result may also be seen due to presence of passively-transferred antibodies. Please correlate with patient's history. Performed By: #### M UMPSG, MEASLG, RUBIGG ####[facility] LABCLIA [id number] [place] [address] [place] RUBELLA IGG ANTIBODYon 10-13 RUBELLA IGG AB, QUAL Positive Normal Positive [facility] Comment on above: Order Comment: Speci men Type: BLOOD SPECIMENOrdering Facility: [facility] Address: [address] [place] [address] Result Comment: The result suggests recent or past exposure to Rubella virus or history of Rubella vaccination. Positive result may also be seen due to presence of passively-transferred antibodies. Please correlate with patient's history. Performed By: #### M UMPSG, MEASLG, RUBIGG ####[facility] LABCLIA [id number] [address] OF [place] RUBEOLA (MEASLES)IGGon 10-13 MEASLES IGG AB, QUAL Positive Normal Positive [facility] Comment on above: Order Comment: Speci men Type: BLOOD SPECIMENOrdering Facility: [facility] Address: [address] [place] [address] Result Comment: The result suggests recent or past exposure to Measles virus or Measles vaccination. The current test does not detect neutralizing antibodies. Positive result may also be seen due to presence of passively-transferred antibodies. Please correlate with patient's history. Performed By: #### M UMPSG, MEASLG, RUBIGG ####[facility] LABCLIA [id number] [place] [address] [place] Urgent Care Visit Reporton 0 10-05-2024 Urgent Care Visit Report [facility] [address] , [address] [place] [address] OFFICE VISIT Date of Service: 10/05/24 MR#: [id number] Acct: [id number] Name: JOSE FIERRO Rep #: [id number] : 1965 Provider: JAMEL Perry Age/Sex: 58/M Location: [facility] Status: Signed Intake Vital Signs 07/01/23 08:26 10/05/24 07:31 Height 5 ft 6 in 5 ft 6 in BP 136/74 H Blood Pressure Location Lt brachial Position Sitting Respiration 16 Pulse 73 Pulse Source Monitor Temp 98.8 F Temp Source Oral Pulse Oximetry (%) 96 Oxygen Delivery Method room air Intake Visit Reasons: COUGH, SORE THROAT Chief Complaint: cough, sore throat Athlete Marketing 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 Required: No Accompanied by: Daughter Is patient in pain?: Yes Pain scale (1-10): 7 Allergies No Known Allergies Allergy (Verified 10/05/24 07:28) Medications ???Medication ???Instructions ???Recorded ???Confirmed ???Type cyclobenzaprine 10 mg tablet 10 mg PO TID PRN PRN muscle spasm 06/30/23 10/05/24 History metformin 500 mg tablet,extended 500 mg PO BID 06/30/23 10/05/24 Hi story release 24 hr sertraline 50 mg tablet 50 mg PO QHS 06/30/23 10/05/24 His tory azithromycin 250 mg tablet See Rx Instructions PO .COMPLEX #6 10/05/24 10/05/24 Rx tabs benzonatate 100 mg capsule 100 mg PO TID PRN cough 10/05/24 0 10/05/24 History brompheniramine-pseudoephed rine-DM 7.5 ml PO Q4-6H PRN cold symptom s 10/05/24 10/05/24 Rx 2 mg-30 mg-10 mg/5 mL oral syrup #100 mL (Bromfed DM) fluticasone propionate 50 1 spray intranasal QDAY 10/05/24 0 10/05/24 History mcg/actuation nasal spray,suspension ipratropium bromide 21 mcg (0.03 2 spray intranasal BID-TID PRN 10/05/24 Rx %) nasal spray postnasal drainage #30 mL loratadine 10 mg tablet 10 mg PO QDAY 10/05/24 10/05/24 Hi story PFSH Medical History Hemorrhoids Diabetes Social History Smoking Status: Former smoker [facility] HPI Chief Complaint: cough, sore throat Details: JOSE FIERRO, is a 58 M who presents to the office today for complaint of cough and sore throat. Patient states his cough is worsening and keeping him awake at night. He denies fever, chills, sweats. No hemoptysis, shortness of breath or difficulty breathing. No loss of taste or smell. No nausea, vomiting, diarrhea. No other associated symptoms or alleviating/aggravating factors. ROS Const Constitutional: No other (6 system ROS completed with pertinent findings in the HPI otherwise normal.) Exam Const General: cooperative and well developed HENMT Head: normal to inspection and atraumatic Ears: hearing grossly normal bilaterally Nose: nasal discharge clear Face and sinus: normal facial exam Mouth: oral mucosae normal Throat: abnormal tonsil bilaterally hypertrophy 1+ Resp Effort Inspection: normal respiratory effort and no audible wheezes Auscultation: Bilateral: Clear to Auscultation Cardio Palpation: normal PMI Rate: regular rate Rhythm: regular rhythm Neuro General: patient alert and CN's II-XI intact bilaterally Psych Appearance: grossly normal Mental Status: mental status grossly normal Results POC MARKY Covid FluAB PCR POC Marky Covid PCR Not Detected Last Edit by Chastity Handley on 10/05/24 07:58 POC MARKY FLU NOT DETECTED FLU A B Last Edit by Chastity Handley on 10/05/24 07:58 Coding Level of Care Code Off vis,new,level 3 Diagnoses Acute bronchitis J20.9 Contact with or suspected exposure to other viral communicable disease Z20.828 Assessment and Plan Assessment and Plan (1) Acute bronchitis: Status: Acute (2) Contact with or suspected exposure to other viral communicable disease: Status: Acute Orders: Orders POC Marky Covid FLUAB PCR Today R05.9 - Cough, unspecified Medications: New qntspyzvzygzysy-pulthhvqq-K M 2-30-10 mg/5 mL (Bromfed DM) 7.5 mL PO Q4-6H PRN 100 mL 0RF cold symptoms azithromycin take 500 mg today (day 1), then 250 mg for 4 days (days 2-5) PO 6 tabs 0RF ipratropium bromide administer into each nostril 2 sprays intranasal BID-TID PRN 30 mL 0RF postnasal drainage Plan Patient tested negative for COVID and influenza in the office today. Bromfed, azithromycin and Atrovent as prescribed today. Encouraged to get plenty of rest, drink lots of clear liquids, and use Tylenol or Ibuprofen (unless contraindicated) for fever and comfort. Patient also educated on other symptomatic management techniques. To be seen in 7-10 days if no improvement; sooner if worsening of symptoms. Patient advised of potential red flags and when appropriate to report to the ED. Patient verbalized understanding and agreement with all the above (more content not included)... Normal [facility] 10-04-2024 [facility] Tele[facility] JOSE FIERRO ([id number]) 1965 [facility] Date Time Provider Department 10/04[facility]24 [facility] During your visit today, we recorded the following information about you: Rhianna Arce RN 10/04/2024 12:47 PM Signed Pts daughter called in and was asking if the Pt ever had the MMR vaccine. I told her I didn't see it in his immunization record. She states he doesn't remember and his mother is no longer alive. I told her the provider could put in titers to check and see if the Pt ever had the vaccine. She was asking if they would put this in for the Pt. 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 Please call and advise. SYDNEE Villagran William J, MD 10/04/2024 1:59 PM Signed ordered Nelia Denney MA 10/04/2024 2:10 PM Signed Patients daughter Irene informed orders placed. Nelia Denney MA Allergies As of Date: 10/04/2024 (No Known Allergies) Date Reviewed: 10/02/2024 Reviewed by: Marvel Knight APRN.CLINICAL PHLEBOTOMIST - Fully Assessed Reason for Visit: Patient Question [1477] Primary Visit Diagnosis:Screening for viral disease [Z11.59] Order(s):RUBEOLA (MEASLES)IGG [SQMEASLG] Order #: [id number] FUTURE MUMPS IGG AB [SQMUMPSG] Order #: [id number] FUTURE RUBELLA IGG ANTIBODY [SQRUBQNT] Order #: [id number] FUTURE Prescriptions as of 10/04/2024 - benzonatate (TESSALON PERLE) 100 mg capsule Take 1 capsule by mouth three times a day as needed for cough for up to 7 days. - fluticasone (FLONASE ALLERGY RELIEF) 50 mcg/actuation nasal spray Use 1 Belcher in each nostril once daily. - loratadine (CLARITIN) 10 mg tablet Take 1 tablet by mouth once daily for 7 days. - sertraline (ZOLOFT) 50 mg tablet Take 1 tablet by mouth once daily. - metFORMIN ER (GLUCOPHAGE XR) 500 mg 24 hr tablet Take 1 tablet by mouth daily with breakfast. - metroNIDAZOLE (METROGEL) 1 % Topical Gel Apply 1 application to affected area once daily. Location: cheeks and forehead - erythromycin base 250 mg tablet Take 1 tablet by mouth once daily. - cyclobenzaprine (FLEXERIL) 10 mg tablet Take 1 tablet by mouth three times a day as needed for muscle spasm. - Zinc Gluconate 10 mg lozg Take 1 tablet by mouth once daily. - MV with Lsh-Tukrwevt-Twiqib (CENTRUM SILVER) 0.4-300-250 mg-mcg-mcg tab Take 1 tablet by mouth once daily. - B Complex-Folic Acid (B COMPLEX 1, WITH FOLIC ACID,) 0.4 mg tab Take 1 tablet by mouth once daily. - omega-3 fatty acids 1,000 mg cap Take 2 capsules by mouth once daily. - blood sugar diagnostic (BLOOD GLUCOSE TEST) test strip Test blood sugar(s) 1 times daily. Dx: Type 2 DM - Uncontrolled E11.65 Insulin: No - Lancets lancets Test blood sugar(s) 1 times daily. Dx: Type 2 DM - Uncontrolled E11.65 Insulin: No - CPAP AutoPAP 5-20 cmH2O, suitable mask, humidity, filters. Lifetime supplies. Dx: G47.33 Meds Comments as of 08/21/2017: Pt is not taking Amoxicillin, Flonase, Metronidazole. Problem List As Of Date 10/04/2024 Noted Resolved Rosacea [L71.9] 09/29/2015 Arthritis of left knee [M17.12] 09/29/2015 Obesity, Class II, BMI 35-39.9 [E66.812] 09/29/2015 Elevated hemoglobin A1c [R73.09] 10/14/2015 07/15/2023 ZAHIDA (obstructive sleep apnea) [G47.33] 12/08/2016 Nasal congestion [R09.81] 12/08/2016 05/15/2018 Helicobacter pylori gastritis [K29.70, B96.81] 07/08/2017 05/15/2018 Plantar fasciitis [M72.2] 07/08/2017 07/15/2023 Severe anxiety with panic [F41.0] 05/15/2018 Mixed hyperlipidemia [E78.2] 05/21/2018 Impingement syndrome of shoulder region [M75.40]11/01/2018 Cervical radiculopathy [M54.12] 11/01/2018 Medication management [Z79.899] 01/20/2021 07/15/2023 History of colonic polyps [Z86.0100] 01/20/2021 Family history of rheumatoid arthritis [Z82.61] 10/22/2021 Arthritis of neck [M47.812] 10/26/2021 Arthritis of both hands [M19.041, M19.042] 10/26/2021 Well adult exam [Z00.00] 03/23/2022 07/15/2023 Screening for prostate cancer [Z12.5] 03/23/2022 07/15/2023 Leg cramps [R25.2] 03/23/2022 07/15/2023 Closed head injury [S09.90XA] 07/15/2023 07/15/2023 Diagnosed: 07/15/2023 Hematoma of occipital region of scalp [S00.03XA]07/15/2023 07/15/2023 Diagnosed: 07/15/2023 Laceration of scalp [S01.01XA] 07/15/2023 07/15/2023 Diagnosed: 07/15/2023 Problem [MOO3638] 07/15/2023 07/15/2023 Diagnosed: 07/15/2023 Prediabetes [R73.03] 07/15/2023 Sciatica, right side [M54.31] 08/11/2023 Encounter Status:Closed by NELIA DENNEY on 10/04/24 [facility] CNOVon 10-02-2024 CNOV Office Visit (UCWSTR ) JOSE FIERRO ([id number]) 1965 M [facility] Date Time Provider Department 10/02/24 7:15 AM MARVEL KNIGHT [facility] During your visit today, we recorded the following information about you: Temperature Pulse Respiration Blood pressure 98.4 degrees 88/minute 18/minute 122/72 Weight 103.8 kg Marvel Knight APRN.CLINICAL PHLEBOTOMIST 10/02/2024 7:46 AM Signed Subjective HPI Nontoxic-appearing male presents to urgent care with chief complaint of upper respiratory tract like infection. Duration of symptoms 2 days. Associated symptoms sore throat, nasal congestion, nasal discharge and nonproductive cough. Patient denies the use of any fmmj-lyq-awmawjt medications or home remedies for symptom management. Patient states recent sick contacts with similar signs and symptoms. Patient denies any productive cough, fever, chest pain, shortness of breath, pleuritic pain, rash, abdominal pain, nausea, vomiting or change in bowel or bladder habit. Past medical history prescription medications allergies reviewed. .Patient presents with: Sinus Problem: sinus pressure, drainage, cough x 2 days PAST MEDICAL HISTORY Diagnosis Date Arthritis of both hands 10/26/2021 mod Arthritis of left knee 09/29/2015 Arthritis of neck 10/26/2021 Mod Cervical radiculopathy 11/01/2018 Elevated hemoglobin A1c 10/14/2015 Family history of rheumatoid arthritis 10/22/2021 father Hemorrhoids History of colonic polyps 01/20/2021 Impingement syndrome of shoulder region 11/01/2018 Mixed hyperlipidemia 05/21/2018 Obesity, Class II, BMI 35-39.9 09/29/2015 ZAHIDA (obstructive sleep apnea) 12/08/2016 AutoPAP 5-20 DME [facility] Plantar fasciitis 07/08/2017 Radius fracture Rosacea Severe anxiety with panic 05/15/2018 Well adult exam 03/23/2022 Last done: 03/23/2022 PAST SURGICAL HISTORY Procedure Laterality Date COLONOSCOPY 01/20/2022 repeat in 5 years COLONOSCOPY FLX DX W/COLLJ SPEC WHEN PFRMD 10/27/2015 Colonoscopy EGD W/O [facility] SPEC VARICIES INJ 01/20/2022 ALLERGIES Patient has no known allergies. MEDICATIONS benzonatate (TESSALON PERLE) 100 mg capsule Take 1 capsule by mouth three times a day as needed for cough for up to 7 days. fluticasone (FLONASE ALLERGY RELIEF) 50 mcg/actuation nasal spray Use 1 Belcher in each nostril once daily. loratadine (CLARITIN) 10 mg tablet Take 1 tablet by mouth once daily for 7 days. sertraline (ZOLOFT) 50 mg tablet Take 1 tablet by mouth once daily. metFORMIN ER (GLUCOPHAGE XR) 500 mg 24 hr tablet Take 1 tablet by mouth daily with breakfast. metroNIDAZOLE (METROGEL) 1 % Topical Gel Apply 1 application to affected area once daily. Location: cheeks and forehead erythromycin base 250 mg tablet Take 1 tablet by mouth once daily. cyclobenzaprine (FLEXERIL) 10 mg tablet Take 1 tablet by mouth three times a day as needed for muscle spasm. (Patient not taking: Reported on 10/02/2024) Zinc Gluconate 10 mg lozg Take 1 tablet by mouth once daily. MV with Umt-Fjipwsgv-Ckdese (CENTRUM SILVER) 0.4-300-250 mg-mcg-mcg tab Take 1 tablet by mouth once daily. B Complex-Folic Acid (B COMPLEX 1, WITH FOLIC ACID,) 0.4 mg tab Take 1 tablet by mouth once daily. omega-3 fatty acids 1,000 mg cap Take 2 capsules by mouth once daily. blood sugar diagnostic (BLOOD GLUCOSE TEST) test strip Test blood sugar(s) 1 times daily. Dx: Type 2 DM - Uncontrolled E11.65 Insulin: No Lancets lancets Test blood sugar(s) 1 times daily. Dx: Type 2 DM - Uncontrolled E11.65 Insulin: No CPAP AutoPAP 5-20 cmH2O, suitable mask, humidity, filters. Lifetime supplies. Dx: G47.33 FAMILY HISTORY Problem Relation Age of Onset Stroke Mother Coronary Artery Disease Father Colon Cancer Father other (rheumatoid arthritis) Father Hypertension Sister Diabetes Brother from diabetic coma Lipids Brother Social History Tobacco Use Smoking status: Never Smokeless tobacco: Never Substance Use Topics Alcohol use: No Drug use: Never BP 122/72 Pulse 88 Temp 36.9 ?C (98.4 ?F) Resp 18 Wt 103.8 kg (228 lb 13.4 oz) SpO2 97% BMI 37.50 kg/m? Review of Systems Constitutional: Negative for chills, fever and malaise/fatigue. HENT: Positive for congestion and sore throat. Negative for ear discharge, ear pain and sinus pain. Eyes: Negative for blurred vision, pain, discharge and redness. Respiratory: Positive for cough. Negative for hemoptysis, sputum production, shortness of breath, wheezing and stridor. Cardiovascular: Negative for chest pain. Gastrointestinal: Negative for abdominal pain, diarrhea, nausea and vomiting. Musculoskeletal: Positive for myalgias. Skin: Negative for itching and rash. Neurological: Positive for headaches. Negative for dizziness. Objective Physical Exam Constitutional: General: He is not in acute distress. Appearance: He is not diaphoretic. (more content not included)... Normal [facility] CNOVon 07-05-2024 CNOV Office Visit (UCWSTR ) JOSE FIERRO ([id number]) 1965 [facility] Date Time Provider Department 07/05/24 10:15 AM MARVEL KNIGHT [facility] During your visit today, we recorded the following information about you: Temperature Pulse Respiration Blood pressure 98.1 degrees 84/minute 16/minute 142/70 Weight 103.6 kg Marvel Knight, DIOGENES.CLINICAL PHLEBOTOMIST 07/05/2024 11:12 AM Signed Subjective HPI Nontoxic-appearing male presents urgent care accompanied by family member. Chief complaint right ankle injury. Duration of symptoms 2 days. Associated symptoms right ankle pain/foot swelling. Patient states inverted right ankle 2 days ago. States was walking in the grass when he rolled his ankle. Denies any other injuries. No head neck or back pain. No LOC. No surgeries or fractures to the foot or ankle in the past. Numbness and tingling not present. Pain is activated by bearing weight improved by rest. No weakness. Past medical history prescription medications allergies reviewed. .Patient presents with: Pain (foot): right x 2 days, twisted PAST MEDICAL HISTORY Diagnosis Date Arthritis of both hands 10/26/2021 mod Arthritis of left knee 09/29/2015 Arthritis of neck 10/26/2021 Mod Cervical radiculopathy 11/01/2018 Elevated hemoglobin A1c 10/14/2015 Family history of rheumatoid arthritis 10/22/2021 father Hemorrhoids History of colonic polyps 01/20/2021 Impingement syndrome of shoulder region 11/01/2018 Mixed hyperlipidemia 05/21/2018 Obesity, Class II, BMI 35-39.9 09/29/2015 ZAHIDA (obstructive sleep apnea) 12/08/2016 AutoPAP 5-20 [facility] Plantar fasciitis 07/08/2017 Radius fracture Rosacea Severe anxiety with panic 05/15/2018 Well adult exam 03/23/2022 Last done: 03/23/2022 PAST SURGICAL HISTORY Procedure Laterality Date COLONOSCOPY 01/20/2022 repeat in 5 years COLONOSCOPY FLX DX W/COLLJ SPEC WHEN PFRMD 10/27/2015 Colonoscopy EGD W/O [facility] SPEC VARICIES INJ 01/20/2022 ALLERGIES Patient has no known allergies. MEDICATIONS sertraline (ZOLOFT) 50 mg tablet Take 1 tablet by mouth once daily. metFORMIN ER (GLUCOPHAGE XR) 500 mg 24 hr tablet Take 1 tablet by mouth daily with breakfast. metroNIDAZOLE (METROGEL) 1 % Topical Gel Apply 1 application to affected area once daily. Location: cheeks and forehead erythromycin base 250 mg tablet Take 1 tablet by mouth once daily. cyclobenzaprine (FLEXERIL) 10 mg tablet Take 1 tablet by mouth three times a day as needed for muscle spasm. Zinc Gluconate 10 mg lozg Take 1 tablet by mouth once daily. MV with Sjq-Ewxdlgni-Crzdlc (CENTRUM SILVER) 0.4-300-250 mg-mcg-mcg tab Take 1 tablet by mouth once daily. B Complex-Folic Acid (B COMPLEX 1, WITH FOLIC ACID,) 0.4 mg tab Take 1 tablet by mouth once daily. omega-3 fatty acids 1,000 mg cap Take 2 capsules by mouth once daily. blood sugar diagnostic (BLOOD GLUCOSE TEST) test strip Test blood sugar(s) 1 times daily. Dx: Type 2 DM - Uncontrolled E11.65 Insulin: No Lancets lancets Test blood sugar(s) 1 times daily. Dx: Type 2 DM - Uncontrolled E11.65 Insulin: No CPAP AutoPAP 5-20 cmH2O, suitable mask, humidity, filters. Lifetime supplies. Dx: G47.33 FAMILY HISTORY Problem Relation Age of Onset Stroke Mother Coronary Artery Disease Father Colon Cancer Father other (rheumatoid arthritis) Father Hypertension Sister Diabetes Brother from diabetic coma Lipids Brother Social History Tobacco Use Smoking status: Never Smokeless tobacco: Never Substance Use Topics Alcohol use: No Drug use: Never BP 142/70 Pulse 84 Temp 36.7 ?C (98.1 ?F) Resp 16 Wt 103.6 kg (228 lb 6.3 oz) SpO2 96% BMI 37.43 kg/m? Review of Systems Constitutional: Negative for chills, fever and malaise/fatigue. Musculoskeletal: Positive for falls and joint pain. Negative for back pain, myalgias and neck pain. Neurological: Negative for dizziness, loss of consciousness, weakness and headaches. Objective Physical Exam Constitutional: General: He is not in acute distress. Appearance: He is not toxic-appearing. HENT: Head: Normocephalic. Nose: Nose normal. Eyes: Pupils: Pupils are equal, round, and reactive to light. Cardiovascular: Rate and Rhythm: Normal rate. Pulmonary: Effort: Pulmonary effort is normal. No respiratory distress. Musculoskeletal: Cervical back: Normal range of motion. Right lower leg: Normal. Right ankle: Swelling present. No deformity, ecchymosis or lacerations. Tenderness present over the lateral malleolus. Normal range of motion. Right Achilles Tendon: No tenderness. Right foot: Normal range of motion and normal capillary refill. Swelling present. No deformity, tenderness or bony tenderness. Normal pulse. Comments: Neurovascular intact. Full range of motion. No breaks in skin. No weaknesses. Skin: General: Skin is warm and dry. Luis M (more content not included)... Normal [facility] No Panel Informationon 07-05 IMPRESSION: Age indeterminate fifth digit fracture. Soft tissue swelling as described above. Manager System: JARET Transcribe Date/Time: Jul 05 2024 10:45A Dictated by : GALEN HOLBROOK MD This examination was interpreted and the report reviewed and electronically signed by: GALEN HOLBROOK MD on Jul 05 2024 10:53AM EST DIVISION OF RADIOLOGY Radiology Study observation (narrative) [facility] No Panel InformationOrdered By: [facility] Provider on 07-05-2024 [facility] XR ANKLE 3V AP/LAT/OBL RTon 07-05-2024 XR ANKLE 3V AP/LAT/OBL RT * * *Final Report* * * DATE OF EXAM: Jul 05 2024 10:40AM WOX 5297 - XR ANKLE 3V AP/LAT/OBL RT / PROCEDURE REASON: Acute right ankle pain * * * * Physician Interpretation * * * * EXAM TITLE: XR ANKLE 3V AP/LAT/OBL RT, XR FOOT 3V AP/LAT/OBL RT EXAM DATE/TIME: 07/05/2024 10:40 AM COMPARISON: None. CLINICAL INDICATION/HISTORY: Ankle pain. TECHNIQUE: AP, mortise and lateral views of the right ankle are presented. AP, oblique and lateral views of the right foot are also presented. FINDINGS: Age indeterminate fracture noted in the proximal phalanx of the fifth digit, with callus formation and periosteal reaction. No definite other fracture seen There is an accessory bone superior to the navicular bones. Achilles/calcaneal enthesopathy is noted. The joint spaces including the mortise spaces are maintained. No ankle joint effusion seen. The mineralization of the bones is normal. There is bimalleolar and forefoot soft tissue swelling. IMPRESSION: Age indeterminate fifth digit fracture. Soft tissue swelling as described above. Manager System: JARET Transcribe Date/Time: Jul 05 2024 10:45A Dictated by : GALEN HOLBROOK MD This examination was interpreted and the report reviewed and electronically signed by: GALEN HOLBROOK MD on Jul 05 2024 10:53AM EST [id number] Normal [facility] XR Ankle - right AP and Late ral and obliqueon 07-05-2024 * * *Final Report* * * DATE OF EXAM: Jul 05 2024 10:40AM WOX 5297 - XR ANKLE 3V AP/LAT/OBL RT / PROCEDURE REASON: Acute right ankle pain * * * * Physician Interpretation * * * * EXAM TITLE: XR ANKLE 3V AP/LAT/OBL RT, XR FOOT 3V AP/LAT/OBL RT EXAM DATE/TIME: 07/05/2024 10:40 AM COMPARISON: None. CLINICAL INDICATION/HISTORY: Ankle pain. TECHNIQUE: AP, mortise and lateral views of the right ankle are presented. AP, oblique and lateral views of the right foot are also presented. FINDINGS: Age indeterminate fracture noted in the proximal phalanx of the fifth digit, with callus formation and periosteal reaction. No definite other fracture seen There is an accessory bone superior to the navicular bones. Achilles/calcaneal enthesopathy is noted. The joint spaces including the mortise spaces are maintained. No ankle joint effusion seen. The mineralization of the bones is normal. There is bimalleolar and forefoot soft tissue swelling. DIVISION OF RADIOLOGY Provider, [facility] - 07/05/2024 * * *Final Report* * * DATE OF EXAM: Jul 05 2024 10:40AM WOX 5297 - XR ANKLE 3V AP/LAT/OBL RT / PROCEDURE REASON: Acute right ankle pain * * * * Physician Interpretation * * * * EXAM TITLE: XR ANKLE 3V AP/LAT/OBL RT, XR FOOT 3V AP/LAT/OBL RT EXAM DATE/TIME: 07/05/2024 10:40 AM COMPARISON: None. CLINICAL INDICATION/HISTORY: Ankle pain. TECHNIQUE: AP, mortise and lateral views of the right ankle are presented. AP, oblique and lateral views of the right foot are also presented. FINDINGS: Age indeterminate fracture noted in the proximal phalanx of the fifth digit, with callus formation and periosteal reaction. No definite other fracture seen There is an accessory bone superior to the navicular bones. Achilles/calcaneal enthesopathy is noted. The joint spaces including the mortise spaces are maintained. No ankle joint effusion seen. The mineralization of the bones is normal. There is bimalleolar and forefoot soft tissue swelling. IMPRESSION IMPRESSION: Age indeterminate fifth digit fracture. Soft tissue swelling as described above. Manager System: JARET Transcribe Date/Time: Jul 05 2024 10:45A Dictated by : GALEN HOLBROOK MD This examination was interpreted and the report reviewed and electronically signed by: GALEN HOLBROOK MD on Jul 05 2024 10:53AM EST [facility] XR FOOT 3V AP/LAT/OBL RTon 1 09-05-2023 XR FOOT 3V AP/LAT/OBL RT * * *Final Report* * * DATE OF EXAM: Jul 05 2024 10:40AM WOX 5337 - XR FOOT 3V AP/LAT/OBL RT / PROCEDURE REASON: Foot pain, right * * * * Physician Interpretation * * * * EXAM TITLE: XR ANKLE 3V AP/LAT/OBL RT, XR FOOT 3V AP/LAT/OBL RT EXAM DATE/TIME: 07/05/2024 10:40 AM COMPARISON: None. CLINICAL INDICATION/HISTORY: Ankle pain. TECHNIQUE: AP, mortise and lateral views of the right ankle are presented. AP, oblique and lateral views of the right foot are also presented. FINDINGS: Age indeterminate fracture noted in the proximal phalanx of the fifth digit, with callus formation and periosteal reaction. No definite other fracture seen There is an accessory bone superior to the navicular bones. Achilles/calcaneal enthesopathy is noted. The joint spaces including the mortise spaces are maintained. No ankle joint effusion seen. The mineralization of the bones is normal. There is bimalleolar and forefoot soft tissue swelling. IMPRESSION: Age indeterminate fifth digit fracture. Soft tissue swelling as described above. Manager System: [facility] Transcribe Date/Time: Jul 05 2024 10:45A Dictated by : GALEN HOLBROOK MD This examination was interpreted and the report reviewed and electronically signed by: GALEN HOLBROOK MD on Jul 05 2024 10:53AM EST [id number] Normal [facility] XR Foot - right AP and Later al and obliqueon 07-05-2024 * * *Final Report* * * DATE OF EXAM: Jul 05 2024 10:40AM WOX 5337 - XR FOOT 3V AP/LAT/OBL RT / PROCEDURE REASON: Foot pain, right * * * * Physician Interpretation * * * * EXAM TITLE: XR ANKLE 3V AP/LAT/OBL RT, XR FOOT 3V AP/LAT/OBL RT EXAM DATE/TIME: 07/05/2024 10:40 AM COMPARISON: None. CLINICAL INDICATION/HISTORY: Ankle pain. TECHNIQUE: AP, mortise and lateral views of the right ankle are presented. AP, oblique and lateral views of the right foot are also presented. FINDINGS: Age indeterminate fracture noted in the proximal phalanx of the fifth digit, with callus formation and periosteal reaction. No definite other fracture seen There is an accessory bone superior to the navicular bones. Achilles/calcaneal enthesopathy is noted. The joint spaces including the mortise spaces are maintained. No ankle joint effusion seen. The mineralization of the bones is normal. There is bimalleolar and forefoot soft tissue swelling. DIVISION OF RADIOLOGY Provider, [facility] - 07/05/2024 * * *Final Report* * * DATE OF EXAM: Jul 05 2024 10:40AM WOX 5337 - XR FOOT 3V AP/LAT/OBL RT / PROCEDURE REASON: Foot pain, right * * * * Physician Interpretation * * * * EXAM TITLE: XR ANKLE 3V AP/LAT/OBL RT, XR FOOT 3V AP/LAT/OBL RT EXAM DATE/TIME: 07/05/2024 10:40 AM COMPARISON: None. CLINICAL INDICATION/HISTORY: Ankle pain. TECHNIQUE: AP, mortise and lateral views of the right ankle are presented. AP, oblique and lateral views of the right foot are also presented. FINDINGS: Age indeterminate fracture noted in the proximal phalanx of the fifth digit, with callus formation and periosteal reaction. No definite other fracture seen There is an accessory bone superior to the navicular bones. Achilles/calcaneal enthesopathy is noted. The joint spaces including the mortise spaces are maintained. No ankle joint effusion seen. The mineralization of the bones is normal. There is bimalleolar and forefoot soft tissue swelling. IMPRESSION IMPRESSION: Age indeterminate fifth digit fracture. Soft tissue swelling as described above. Manager System: JARET Transcribe Date/Time: Jul 05 2024 10:45A Dictated by : GALEN HOLBROOK MD This examination was interpreted and the report reviewed and electronically signed by: GALEN HOLBROOK MD on Jul 05 2024 10:53AM EST [facility] CBC W Auto Differential pane l (Bld)on 02-18-2024 Basophils (Bld) [#/Vol] 0.05 10*3/uL Normal <0.11 [facility] Comment on above: Order Comment: Speci men Type: BLOOD SPECIMENOrdering Facility: [facility] Address: [address] [place] [address] Performed By: #### 5 7021-8 ####[facility] LABCLIA [id number] [place] [address] [place] Basophils/100 WBC (Bld) 0.9 % Normal [facility] Comment on above: Order Comment: Speci men Type: BLOOD SPECIMENOrdering Facility: [facility] Address: [address] [place] [address] Performed By: #### 5 7021-8 ####[facility] LABCLIA [id number] [place] [address] [place] Differential cell count method Nom (Bld) Auto Normal [facility] Comment on above: Order Comment: Speci men Type: BLOOD SPECIMENOrdering Facility: [facility] Address: [address] [place] [address] Performed By: #### 5 7021-8 ####[facility] LABCLIA [id number] [place] [address] [place] Eosinophils (Bld) [#/Vol] 0.15 10*3/uL Normal <0.46 [facility] Comment on above: Order Comment: Speci men Type: BLOOD SPECIMENOrdering Facility: [facility] Address: [address] [place] [address] Performed By: #### 5 7021-8 ####[facility] LABCLIA [id number] [place] [address] [place] Eosinophils/100 WBC (Bld) 2.7 % Normal [facility] Comment on above: Order Comment: Speci men Type: BLOOD SPECIMENOrdering Facility: [facility] Address: [address] [place] [address] Performed By: #### 5 7021-8 ####[facility] LABIA [id number] [place] [address] [place] Erythrocyte distribution width (RBC) [Ratio] 13.2 % Normal 11.5-15.0 [facility] Comment on above: Order Comment: Speci men Type: BLOOD SPECIMENOrdering Facility: [facility] Address: [address] [place] [address] Performed By: #### 5 7021-8 ####[facility] LABIA [id number] [place] [address] [place] Hematocrit (Bld) [Volume fraction] 38.8 % Low 39.0-51.0 [facility] Comment on above: Order Comment: Speci men Type: BLOOD SPECIMENOrdering Facility: [facility] Address: [address] [place] [address] Performed By: #### 5 7021-8 ####[facility] LABIA [id number] [place] [address] [place] Hemoglobin (Bld) [Mass/Vol] 12.7 g/dL Low 13.0-17.0 [facility] Comment on above: Order Comment: Speci men Type: BLOOD SPECIMENOrdering Facility: [facility] Address: [address] [place] [address] Performed By: #### 5 7021-8 ####[facility] LABIA [id number] [place] [address] [place] Immature granulocytes (Bld) [#/Vol] 10*3/uL Normal <0.10 [facility] Comment on above: Order Comment: Speci men Type: BLOOD SPECIMENOrdering Facility: [facility] Address: [address] [place] [address] Performed By: #### 5 7021-8 ####[facility] LABCLIA [id number] [place] [address] [place] Immature granulocytes/100 WBC (Bld) 0.4 % Normal [facility] Comment on above: Order Comment: Speci men Type: BLOOD SPECIMENOrdering Facility: [facility] Address: [address] [place] [address] Performed By: #### 5 7021-8 ####[facility] LABCLIA [id number] [place] [address] [place] Lymphocytes (Bld) [#/Vol] 1.48 10*3/uL Normal 1.00-4.00 [facility] Comment on above: Order Comment: Speci men Type: BLOOD SPECIMENOrdering Facility: [facility] Address: [address] [place] [address] Performed By: #### 5 7021-8 ####[facility] LABIA [id number] [place] [address] [place] Lymphocytes/100 WBC (Bld) 26.2 % Normal [facility] Comment on above: Order Comment: Speci men Type: BLOOD SPECIMENOrdering Facility: [facility] Address: [address] [place] [address] Performed By: #### 5 7021-8 ####[facility] LABCLIA [id number] [place] [address] [place] MCH (RBC) [Entitic mass] 29.9 pg Normal 26.0-34.0 [facility] Comment on above: Order Comment: Speci men Type: BLOOD SPECIMENOrdering Facility: [facility] Address: [address] [place] [address] Performed By: #### 5 7021-8 ####[facility] LABCLIA [id number] [place] [address] [place] MCHC (RBC) [Mass/Vol] 32.7 g/dL Normal 30.5-36.0 [facility] Comment on above: Order Comment: Speci men Type: BLOOD SPECIMENOrdering Facility: [facility] Address: [address] [place] [address] Performed By: #### 5 7021-8 ####[facility] LABIA [id number] [place] [address] [place] MCV (RBC) [Entitic vol] 91.3 fL Normal 80.0-100.0 [facility] Comment on above: Order Comment: Speci men Type: BLOOD SPECIMENOrdering Facility: [facility] Address: [address] [place] [address] Performed By: #### 5 7021-8 ####[facility] LABIA [id number] [place] [address] [place] Monocytes (Bld) [#/Vol] 0.37 10*3/uL Normal <0.87 [facility] Comment on above: Order Comment: Speci men Type: BLOOD SPECIMENOrdering Facility: [facility] Address: [address] [place] [address] Performed By: #### 5 7021-8 ####[facility] LABIA [id number] [place] [address] [place] Monocytes/100 WBC (Bld) 6.5 % Normal [facility] Comment on above: Order Comment: Speci men Type: BLOOD SPECIMENOrdering Facility: [facility] Address: [address] [place] [address] Performed By: #### 5 7021-8 ####[facility] LABIA [id number] [place] [address] [place] Neutrophils (Bld) [#/Vol] 3.58 10*3/uL Normal 1.45-7.50 [facility] Comment on above: Order Comment: Speci men Type: BLOOD SPECIMENOrdering Facility: [facility] Address: [address] [place] [address] Performed By: #### 5 7021-8 ####[facility] LABCLIA [id number] [place] [address] [place] Neutrophils/100 WBC (Bld) 63.3 % Normal [facility] Comment on above: Order Comment: Speci men Type: BLOOD SPECIMENOrdering Facility: [facility] Address: [address] [place] [address] Performed By: #### 5 7021-8 ####[facility] LABCLIA [id number] [place] [address] [place] Nucleated RBC (Bld) [#/Vol] 10*3/uL Normal <0.01 [facility] Comment on above: Order Comment: Speci men Type: BLOOD SPECIMENOrdering Facility: [facility] Address: [address] [place] [address] Performed By: #### 5 7021-8 ####[facility] LABIA [id number] [place] [address] [place] Nucleated RBC/100 WBC (Bld) [Ratio] 0.0 /100 WBC Normal [facility] Comment on above: Order Comment: Speci men Type: BLOOD SPECIMENOrdering Facility: [facility] Address: [address] [place] [address] Performed By: #### 5 7021-8 ####[facility] LABCLIA [id number] [place] [address] [place] Platelet mean volume (Bld) [Entitic vol] 10.4 fL Normal 9.0-12.7 [facility] Comment on above: Order Comment: Speci men Type: BLOOD SPECIMENOrdering Facility: [facility] Address: [address] [place] [address] Performed By: #### 5 7021-8 ####[facility] LABCLIA [id number] [place] [id number] [address] [place] Platelets (Bld) [#/Vol] 262 10*3/uL Normal 150-400 [facility] Comment on above: Order Comment: Speci men Type: BLOOD SPECIMENOrdering Facility: [facility] Address: [address] [place] [address] Performed By: #### 5 7021-8 ####[facility] LABCLIA [id number] [place] [address] [place] RBC (Bld) [#/Vol] 4.25 10*6/uL Normal 4.20-6.[address] [facility] Comment on above: Order Comment: Speci men Type: BLOOD SPECIMENOrdering Facility: [facility] Address: [address] [place] [address] Performed By: #### 5 7021-8 ####[facility] LABCLIA [id number] [place] [address] [place] WBC (Bld) [#/Vol] 5.65 10*3/uL Normal 3.70-11.[address] [facility] Comment on above: Order Comment: Speci men Type: BLOOD SPECIMENOrdering Facility: [facility] Address: [address] [place] [address] Performed By: #### 5 7021-8 ####[facility] LABCLIA [id number] [place] [address] [place] Comprehensive metabolic 2000 panelon 02-18-2024 Albumin [Mass/Vol] 3.8 g/dL Low 3.9-4.9 [facility] Comment on above: Order Comment: Speci men Type: BLOOD SPECIMENOrdering Facility: [facility] Address: [address] [place] [address] Performed By: #### 2 4331-1, 91794-7 ####[facility] LABCLIA [id number] [place] [address] [place] ALP [Catalytic activity/Vol] 64 U/L Normal 38-113 [facility] Comment on above: Order Comment: Speci men Type: BLOOD SPECIMENOrdering Facility: [facility] Address: [address] [place] [address] Performed By: #### 2 4331-1, 54053-2 ####[facility] LABCLIA [id number] [place] [id number] [place] ALT [Catalytic activity/Vol] 15 U/L Normal 10-54 [facility] Comment on above: Order Comment: Speci men Type: BLOOD SPECIMENOrdering Facility: [facility] Address: [address] [place] [address] Performed By: #### 2 4331-1, 82005-9 ####[facility] LABCLIA [id number] [place] [address] [place] Anion gap [Moles/Vol] 13 mmol/L Normal 8-15 [facility] Comment on above: Order Comment: Speci men Type: BLOOD SPECIMENOrdering Facility: [facility] Address: [address] [place] [address] Performed By: #### 2 4331-1, 04299-8 ####[facility] LABCLIA [id number] [place] [address] [place] AST [Catalytic activity/Vol] 22 U/L Normal 14-40 [facility] Comment on above: Order Comment: Speci men Type: BLOOD SPECIMENOrdering Facility: [facility] Address: [address] [place] [address] Performed By: #### 2 4331-1, 45622-5 ####[facility] LABCLIA [id number] [place] [address] [place] Bilirubin [Mass/Vol] 0.2 mg/dL Normal 0.2-1.3 [facility] Comment on above: Order Comment: Speci men Type: BLOOD SPECIMENOrdering Facility: [facility] Address: [address] [place] [address] Performed By: #### 2 4331-1, 33582-5 ####[facility] LABCLIA [id number] [facility] [address] [address] [place] Calcium [Mass/Vol] 9.1 mg/dL Normal 8.5-10.2 [facility] Comment on above: Order Comment: Speci men Type: BLOOD SPECIMENOrdering Facility: [facility] Address: [address] [place], [place] [address] Performed By: #### 2 4331-, ####[facility] LABCLIA [id number] [facility] [place] [address] [place] Chloride [Moles/Vol] 104 mmol/L Normal 98-107 [facility] Comment on above: Order Comment: Speci men Type: BLOOD SPECIMENOrdering Facility: [facility] Address: [address] [place], [place] [address] Performed By: #### 2 433-, ####[facility] LABCLIA [id number] [facility] [place] [id number] [place] CO2 [Moles/Vol] 22 mmol/L Normal 22-30 [facility] Comment on above: Order Comment: Speci men Type: BLOOD SPECIMENOrdering Facility: [facility] Address: [address] [place], [place] [address] Performed By: #### 2 4331-, ####[facility] LABCLIA [id number] [facility] [address] [address] [place] Creatinine [Mass/Vol] 0.71 mg/dL Low 0.73-1.22 [facility] Comment on above: Order Comment: Speci men Type: BLOOD SPECIMENOrdering Facility: [facility] Address: [address] [place], [place] [address] Performed By: #### 2 4331-1, 47725-4 ####[facility] LABCLIA [id number] [place] [address] [place] Creatinine and Glomerular filtration rate.predicted panel (S/P/Bld) 105 mL/min/1.73m??? Normal >=60 [facility] Comment on above: Order Comment: Antionette van Type: BLOOD SPECIMENOrdering Facility: [facility] Address: [address] [place] [address] Result Comment: Roxanne mated Glomerular Filtration Rate (eGFR) is calculated using the 2020 CKD-EPI creatinine equation. This equation utilizes serum creatinine, sex, and age as parameters. The creatinine assay has traceable calibration to isotope dilution-mass spectrometry. Refer to KDIGO guidelines for clinical interpretation. In patients with unstable renal function, e.g. those with acute kidney injury, the eGFR may not accurately reflect actual GFR. Performed By: #### 2 4331-1, 87212-6 ####[facility] LABCLIA [id number] [place] [address] [place] Glucose [Mass/Vol] 113 mg/dL High 74-99 [facility] Comment on above: Order Comment: Antionette van Type: BLOOD SPECIMENOrdering Facility: [facility] Address: [address] [place] [address] Result Comment: The [place] Diabetes Association (ADA) provides guidance for cutoff values for fasting glucose and random glucose. The ADA defines fasting as no caloric intake for at least 8 hours. Fasting plasma glucose results between 100 to 125 mg/dL indicate increased risk for diabetes (prediabetes). Fasting plasma glucose results greater than or equal to 126 mg/dL meet the criteria for diagnosis of diabetes. In the absence of unequivocal hyperglycemia, results should be confirmed by repeat testing. In a patient with classic symptoms of hyperglycemia or hyperglycemic crisis, random plasma glucose results greater than or equal to 200 mg/dL meet the criteria for diagnosis of diabetes. Reference: Standards of Medical Care in Diabetes 2016, [place] Diabetes Association. Diabetes Care. 2016.39(Suppl 1). Performed By: #### 2 4331-1, 99353-3 ####[facility] LABIA [id number] [place] [id number] [place] Potassium [Moles/Vol] 4.3 mmol/L Normal 3.7-5.1 [facility] Comment on above: Order Comment: Speci men Type: BLOOD SPECIMENOrdering Facility: [facility] Address: [address] [place] [address] Performed By: #### 2 4331-1, ####[facility] LABCLIA [id number] [place] [address] [place] Protein [Mass/Vol] 6.9 g/dL Normal 6.3-8.0 [facility] Comment on above: Order Comment: Speci men Type: BLOOD SPECIMENOrdering Facility: [facility] Address: [address] [place] [address] Performed By: #### 2 4331-1, ####[facility] LABCLIA [id number] [place] [address] [place] Sodium [Moles/Vol] 139 mmol/L Normal 136-144 [facility] Comment on above: Order Comment: Speci men Type: BLOOD SPECIMENOrdering Facility: [facility] Address: [address] [place] [address] Performed By: #### 2 4331-1, ####[facility] LABCLIA [id number] [place] [address] [place] Urea nitrogen [Mass/Vol] 22 mg/dL Normal 9-24 [facility] Comment on above: Order Comment: Speci men Type: BLOOD SPECIMENOrdering Facility: [facility] Address: [address] [place] [address] Performed By: #### 2 4331-1, ####[facility] LABCLIA [id number] [place] [id number] [place] HbA1c (Bld)on 02-18-2024 Average glucose Estimated from glycated hemoglobin (Bld) [Mass/Vol] 131 mg/dL Normal [facility] Comment on above: Order Comment: Speci men Type: BLOOD SPECIMENOrdering Facility: [facility] Address: [address] [place] [address] Result Comment: eAG: (Estimated average glucose) is a calculated value from HgbA1c and is lead generation representative of the average blood glucose level in the last 2-3 month period. Performed By: #### 5 5454-3 ####[facility] LABCLIA [id number] [place] [address] [place] HbA1c (Bld) [Mass fraction] 6.2 % High 4.3-5.6 [facility] Comment on above: Order Comment: Speci men Type: BLOOD SPECIMENOrdering Facility: [facility] Address: [address] [place] [address] Result Comment: [place] Diabetes Association guidelines indicate that patients with HgbA1c in the range 5.7-6.4% are at increased risk for development of diabetes, and intervention by lifestyle modification may be beneficial. HgbA1c greater or equal to 6.5% is considered diagnostic of diabetes. Performed By: #### 5 5454-3 ####[facility] LABCLIA [id number] [place] [address] [place] Lipid 1996 panelon 4 Cholesterol [Mass/Vol] 184 mg/dL Normal <200 [facility] Comment on above: Order Comment: Speci men Type: BLOOD SPECIMENOrdering Facility: [facility] Address: [address] [place] [address] Result Comment: <200 mg/dL, Desirable 200-239 mg/dL, Borderline high >239 mg/dL, High Performed By: #### 2 4331-1, 68955-9 ####[facility] LABCLIA [id number] [place] [address] [place] Cholesterol in HDL [Mass/Vol] 49 mg/dL Normal >39 [facility] Comment on above: Order Comment: Speci men Type: BLOOD SPECIMENOrdering Facility: [facility] Address: [address], [place] [address] Result Comment: 40-5 9 mg/dL, Acceptable >59 mg/dL, High: Negative risk factor for coronary heart disease <40 mg/dL, Low: Positive risk factor for coronary heart disease Performed By: #### 2 4331-1, ####[facility] LABCLIA [id number] [address] [address] [place] Cholesterol in LDL [Mass/Vol] 111 mg/dL High <100 [facility] Comment on above: Order Comment: Speci men Type: BLOOD SPECIMENOrdering Facility: [facility] Address: [address] [place] [address] Result Comment: <100 mg/dL, Optimal 100-129 mg/dL, Near optimal/above optimal 130-159 mg/dL, Borderline high 160-189 mg/dL, High >189 mg/dL, Very high Secondary prevention optimal LDL Cholesterol levels are recommended to be < 70 mg/dL Performed By: #### 2 4331-1, ####[facility] LABCLIA [id number] [place] [address] [place] Cholesterol in LDL/Cholesterol in HDL [Mass ratio] 2.27 {ratio} Normal <2.54 [facility] Comment on above: Order Comment: Speci men Type: BLOOD SPECIMENOrdering Facility: [facility] Address: [address] [place] [address] Result Comment: Refe rence: 1. National Cholesterol Education Program ATP III Guideline At-A-Glance Quick Desk Reference: National Heart, Lung, and Blood [place]. National Institutes of Health. 2001: NIH Publication No. 01-3305. 2. An International Atherosclerosis Society position paper: global recommendations for the management of dyslipidemia: executive summary, Atherosclerosis. 2014: 232(2):410-413. Performed By: #### 2 4331-1, ####[facility] LABCLIA [id number] [place] [id number] [place] Cholesterol in VLDL [Mass/Vol] 24 mg/dL Normal <30 [facility] Comment on above: Order Comment: Speci men Type: BLOOD SPECIMENOrdering Facility: [facility] Address: [address] [place] [address] Performed By: #### 2 4331-1, 34037-7 ####[facility] LABCLIA [id number] [place] [address] [place] Cholesterol non HDL [Mass/Vol] 135 mg/dL High <130 [facility] Comment on above: Order Comment: Speci men Type: BLOOD SPECIMENOrdering Facility: [facility] Address: [address] [place] [address] Result Comment: <130 mg/dL, Optimal 130-159 mg/dL, Near optimal/above optimal 160-189 mg/dL, Borderline high 190-219 mg/dL, High >219 mg/dL, Very high Secondary prevention optimal non HDL Cholesterol levels are recommended to be <100 mg/dL Performed By: #### 2 4331-, ####[facility] LABCLIA [id number] [place] [address] [place] Cholesterol.total/Cho lesterol in HDL [Mass ratio] 3.76 {ratio} Normal <5.10 [facility] Comment on above: Order Comment: Speci men Type: BLOOD SPECIMENOrdering Facility: [facility] Address: [address] [place] [address] Performed By: #### 2 4331-1, ####[facility] LABCLIA [id number] [place] [address] [place] FASTING TIME 12 hrs Normal [facility] Comment on above: Order Comment: Speci men Type: BLOOD SPECIMENOrdering Facility: [facility] Address: [address] [place] [address] Performed By: #### 2 4331-1, 14680-0 ####[facility] LABCLIA [id number] [place] [address] [place] Triglyceride [Mass/Vol] 120 mg/dL Normal <150 [facility] Comment on above: Order Comment: Speci men Type: BLOOD SPECIMENOrdering Facility: [facility] Address: [address] [place] [address] Result Comment: <150 mg/dL, Normal 150-199 mg/dL, Borderline high 200-499 mg/dL, High >499 mg/dL, Very high Performed By: #### 2 4331-1, 14139-4 ####[facility] LABCLIA [id number] [address] [place] PSA/PROSTATE SPECIFIC ANTIGE N SCREENINGon 02-18-2024 Prostate specific Ag [Mass/Vol] 1.35 ng/mL Normal <2.60 [facility] Comment on above: Order Comment: Speci men Type: BLOOD SPECIMENOrdering Facility: [facility] Address: [address] [place] [address] Result Comment: Tota l PSA test methodology used is the Electrochemiluminescence Immunoassay by [employer]. Total PSA values by differing methodologies cannot be interchanged. Performed By: #### P SAS1 ####[facility] LABCLIA [id number] [address] [place] CNOVon 02-17-2024 CNOV Office Visit (GIOPWS ) JOSE FIERRO ([id number]) 1965 M [facility] Date Time Provider Department 02/17/24 8:00 AM RIGOBERTO SHRESTHAWS During your visit today, we recorded the following information about you: Pulse Blood pressure Weight 70/minute 132/72 96.9 kg Rigoberto Shrestha MD 02/17/2024 8:21 AM Signed Patient presents with: Physical HPI: Patient presents today for office visit for physical. Speaks some guinean. Daughter is with him to help Overall sleeping well. Using cpap. Uses most days. No snoring when using it. Benefits from its use. Moods are well. No issues. Sugars are good. He does monitor them and usually around 120 or better. Rosacea is doing well. MEDICATIONS: Current Outpatient Medications Medication Sig sertraline (ZOLOFT) 50 mg tablet Take 1 tablet by mouth once daily. metFORMIN ER (GLUCOPHAGE XR) 500 mg 24 hr tablet Take 1 tablet by mouth daily with breakfast. cyclobenzaprine (FLEXERIL) 10 mg tablet Take 1 tablet by mouth three times a day as needed for muscle spasm. metroNIDAZOLE (METROGEL) 1 % Topical Gel Apply 1 application to affected area once daily. Location: cheeks and forehead erythromycin base 250 mg tablet Take 1 tablet by mouth once daily. Zinc Gluconate 10 mg lozg Take 1 tablet by mouth once daily. MV with Zti-Tqmtjrnh-Jgjlut (CENTRUM SILVER) 0.4-300-250 mg-mcg-mcg tab Take 1 tablet by mouth once daily. B Complex-Folic Acid (B COMPLEX 1, WITH FOLIC ACID,) 0.4 mg tab Take 1 tablet by mouth once daily. omega-3 fatty acids 1,000 mg cap Take 2 capsules by mouth once daily. CPAP AutoPAP 5-20 cmH2O, suitable mask, humidity, filters. Lifetime supplies. Dx: G47.33 blood sugar diagnostic (BLOOD GLUCOSE TEST) test strip Test blood sugar(s) 1 times daily. Dx: Type 2 DM - Uncontrolled E11.65 Insulin: No Lancets lancets Test blood sugar(s) 1 times daily. Dx: Type 2 DM - Uncontrolled E11.65 Insulin: No No current facility-administered medications for this visit. ALLERGIES: ALLERGIES No Known Allergies PAST MEDICAL HISTORY 10/26/2021: Arthritis of both hands Comment: mod 09/29/2015: Arthritis of left knee 10/26/2021: Arthritis of neck Comment: Mod 11/01/2018: Cervical radiculopathy 10/14/2015: Elevated hemoglobin A1c 10/22/2021: Family history of rheumatoid arthritis Comment: father No date: Hemorrhoids 01/20/2021: History of colonic polyps 11/01/2018: Impingement syndrome of shoulder region 05/21/2018: Mixed hyperlipidemia 09/29/2015: Obesity, Class II, BMI 35-39.9 12/08/2016: ZAHIDA (obstructive sleep apnea) Comment: AutoPAP 5-20 DME [facility] 07/08/2017: Plantar fasciitis No date: Radius fracture No date: Rosacea 05/15/2018: Severe anxiety with panic 03/23/2022: Well adult exam Comment: Last done: 03/23/2022 PAST SURGICAL HISTORY 01/20/2022: COLONOSCOPY Comment: repeat in 5 years 10/27/2015: COLONOSCOPY FLX DX W/COLLJ SPEC WHEN PFRMD Comment: Colonoscopy 01/20/2022: EGD W/O [facility] SPEC VARICIES INJ FAMILY HISTORY Problem Relation Age of Onset Stroke Mother Coronary Artery Disease Father Colon Cancer Father other (rheumatoid arthritis) Father Hypertension Sister Diabetes Brother from diabetic coma Lipids Brother Social History Tobacco Use Smoking status: Never Smokeless tobacco: Never Substance Use Topics Alcohol use: No Drug use: Never Reviewed current medications, allergies, past medical history, surgical history, family history and social history today. REVIEW OF SYSTEMS GENERAL: No weight loss, malaise or fevers HEENT: Negative for frequent or significant headaches, No changes in hearing or vision, no nose bleeds or other nasal problems RESPIRATORY: Negative for cough, hemoptysis, wheezing, COPD, dyspnea or shortness of breath CARDIOVASCULAR: Negative for chest pain, leg swelling, hypertension, CHF or palpitations GI: No nausea, vomiting, or diarrhea : No history of dysuria, frequency or incontinence HEMATOLOGY/LYMPHOLOGY: Negative for prolonged bleeding, bruising easily or swollen nodes All other reviewed and negative other than HPI. HEALTH MAINTENANCE: Reviewed health maintenance issues today and recommended the following in detail. VITALS: BP 132/72 Pulse 70 Wt 96.9 kg (213 lb 10 oz) SpO2 97% BMI 35.01 kg/m? Last 4 Encounter Wt Readings: Date: Wt: 02/17/2024 96.9 kg (213 lb 10 oz) 12/24/2023 94.3 kg (208 lb) 07/15/2023 93 kg (205 lb) 06/28/2023 95.3 kg (210 lb) PHYSICAL EXAMINATION: General appearance: Well appearing, alert, in no acute distress, well-hydrated, well nourished. Skin: Skin color, texture, turgor normal, no suspicious rashes or lesions Head: Normocephalic, no masses, lesions, tenderness or abnormalities Eyes: Anicteric sclera. Pupils are equally round and reactive to light. Extraocular movements are intact. Ears: External ears norm (more content not included)... Normal [facility] CNOVon 12-24-2023 CNOV Office Visit (FAMPWS ) JOSE FIERRO ([id number]) 1965 M [facility] Date Time Provider Department 12/24/23 9:00 AM [facility] During your visit today, we recorded the following information about you: Pulse Blood pressure Weight 77/minute 114/67 94.3 kg Rigoberto Shrestha MD 12/24/2023 9:20 AM Signed Patient presents with: Back Pain HPI: Patient presents today for office visit for follow Back pain: 2-3 weeks. Now also on the left. Hurts buttocks area goes down leg on right side but not on the left. Denies numbness or tingling. Only did one session of physical therapy. Reinforced going more than once. Had xray done. No injury. No weakness. Also asking today about frequency of BM's. States that he goes 6-7 times a day. Denies urgency of diarrhea. Did have c-scope 2021 has doing this at that time also. No bloody or bloody stools. No nausea or vomiting. No bloody or black stools. Is on metformin for his sugars. Last A1c was 6.4. Having issues with rosacea. Only using it occasionally. Has a hx of floaters. Reinforced need to follow with his eye MEDICATIONS: Current Outpatient Medications Medication Sig metFORMIN ER (GLUCOPHAGE XR) 500 mg 24 hr tablet Take 2 tablets by mouth daily with breakfast. sertraline (ZOLOFT) 50 mg tablet Take 1 tablet by mouth once daily. cyclobenzaprine (FLEXERIL) 10 mg tablet Take 1 tablet by mouth three times a day as needed for muscle spasm. metroNIDAZOLE (METROGEL) 1 % Topical Gel Apply 1 application to affected area once daily. Location: cheeks and forehead erythromycin base 250 mg tablet Take 1 tablet by mouth once daily. Zinc Gluconate 10 mg lozg Take 1 tablet by mouth once daily. MV with Kfa-Fktzmuya-Juesib (CENTRUM SILVER) 0.4-300-250 mg-mcg-mcg tab Take 1 tablet by mouth once daily. B Complex-Folic Acid (B COMPLEX 1, WITH FOLIC ACID,) 0.4 mg tab Take 1 tablet by mouth once daily. omega-3 fatty acids 1,000 mg cap Take 2 capsules by mouth once daily. blood sugar diagnostic (BLOOD GLUCOSE TEST) test strip Test blood sugar(s) 1 times daily. Dx: Type 2 DM - Uncontrolled E11.65 Insulin: No Lancets lancets Test blood sugar(s) 1 times daily. Dx: Type 2 DM - Uncontrolled E11.65 Insulin: No CPAP AutoPAP 5-20 cmH2O, suitable mask, humidity, filters. Lifetime supplies. Dx: G47.33 No current facility-administered medications for this visit. ALLERGIES: ALLERGIES No Known Allergies PAST MEDICAL HISTORY Diagnosis Date Arthritis of both hands 10/26/2021 mod Arthritis of left knee 09/29/2015 Arthritis of neck 10/26/2021 Mod Cervical radiculopathy 11/01/2018 Elevated hemoglobin A1c 10/14/2015 Family history of rheumatoid arthritis 10/22/2021 father Hemorrhoids History of colonic polyps 01/20/2021 Impingement syndrome of shoulder region 11/01/2018 Mixed hyperlipidemia 05/21/2018 Obesity, Class II, BMI 35-39.9 09/29/2015 ZAHIDA (obstructive sleep apnea) 12/08/2016 AutoPAP 5-20 DME [facility] Plantar fasciitis 07/08/2017 Radius fracture Rosacea Severe anxiety with panic 05/15/2018 Well adult exam 03/23/2022 Last done: 03/23/2022 PAST SURGICAL HISTORY Procedure Laterality Date COLONOSCOPY 01/20/2022 repeat in 5 years COLONOSCOPY FLX DX W/COLLJ SPEC WHEN PFRMD 10/27/2015 Colonoscopy EGD W/O [facility] SPEC VARICIES INJ 01/20/2022 FAMILY HISTORY Problem Relation Age of Onset Stroke Mother Coronary Artery Disease Father Colon Cancer Father other (rheumatoid arthritis) Father Hypertension Sister Diabetes Brother from diabetic coma Lipids Brother Social History Tobacco Use Smoking status: Never Smokeless tobacco: Never Substance Use Topics Alcohol use: No Drug use: Never Reviewed current medications, allergies, past medical history, surgical history, family history and social history today. REVIEW OF SYSTEMS All other reviewed and negative other than HPI. VITALS: BP 114/67 Pulse 77 Wt 94.3 kg (208 lb) SpO2 97% BMI 34.09 kg/m? Last 4 Encounter Wt Readings: Date: Wt: 07/15/2023 93 kg (205 lb) 06/28/2023 95.3 kg (210 lb) 05/29/2023 93.9 kg (207 lb) 12/13/2022 101.6 kg (224 lb) PHYSICAL EXAMINATION: General appearance: Well appearing, alert, in no acute distress, well-hydrated, well nourished. Skin: Skin color, texture, turgor normal, no suspicious rashes or lesions Head: Normocephalic, no masses, lesions, tenderness or abnormalities BACK: Normal curvature of spine. No spine tenderness. Straight leg test negative. Deep tendon reflexes 2+/4 at patellas. Normal lower extremity strength. ASSESSMENT/PLAN: 1. DDD (degenerative disc disease), lumbar - ICD9: 722.52, ICD10: M51.36 (primary diagnosis) - start physical therapy. Prednisone. Red flags for re-assessment reviewed with patient in detail. Call if symptoms worsen at all or if not better in one to two weeks 2. P (more content not included)... Normal [facility] STREP A MOLECULAR (POC)on Procedural Control Valid [facility] Strep A (POCT) Negative Negative [facility] COLONOSCOPY SCREENINGon 01-08 [facility] EGD DIAGNOSTICon 01-20-2022 [facility] XR Cervical spine AP and Lat eral and obliqueon 2021 IMPRESSION: Degenerative changes as discussed Manager System: JARET Transcribe Date/Time: 2021 11:25A Dictated by : LANETTE PANCHAL DO This examination was interpreted and the report reviewed and electronically signed by: LANETTE PANCHAL DO on 2021 11:26AM EST ZZZ__NOT_ USE_DIVISIO N OF RADIOLOGY * * *Final Report* * * DATE OF EXAM: Oct 24 2021 8:16AM WOX [id number] - XR CERVICAL 4V AP/LAT/OBL / PROCEDURE REASON: Neck pain * * * * Physician Interpretation * * * * Cervical spine: HISTORY: Indication: Neck pain TECHNIQUE: Views obtained: XR CERVICAL 4V AP/LAT/OBL Comparison: None. RESULT: Findings: Disk spaces: Severe disc space narrowing C5-6. Marked disc space narrowing C3-4 Spine alignment: The vertebra are in good alignment. No fractures or dislocations are seen. ZZZ_DO_NOT_ USE_DIVISIO N OF RADIOLOGY Provider, [facility] - 2021 * * *Final Report* * * DATE OF EXAM: Oct 24 2021 8:16AM WOX [id number] - XR CERVICAL 4V AP/LAT/OBL / PROCEDURE REASON: Neck pain * * * * Physician Interpretation * * * * Cervical spine: HISTORY: Indication: Neck pain TECHNIQUE: Views obtained: XR CERVICAL 4V AP/LAT/OBL Comparison: None. RESULT: Findings: Disk spaces: Severe disc space narrowing C5-6. Marked disc space narrowing C3-4 Spine alignment: The vertebra are in good alignment. No fractures or dislocations are seen. IMPRESSION IMPRESSION: Degenerative changes as discussed Manager System: JARET Transcribe Date/Time: 2021 11:25A Dictated by : LANETTE PANCHAL DO This examination was interpreted and the report reviewed and electronically signed by: LANETTE PANCHAL DO on 2021 11:26AM EST [facility] XR Cervical spine AP and Lat eral and obliqueOrdered By: [facility]cf Provider on 2021 [facility] XR Hand - bilateral PA and L ateral and Obliqueon 2021 IMPRESSION: Moderate degenerative changes in both hands Manager System: JARET Transcribe Date/Time: 2021 11:26A Dictated by : LANETTE PANCHAL DO This examination was interpreted and the report reviewed and electronically signed by: LANETTE PANCHAL DO on 2021 11:27AM EST ZZZ_DO_NOT_ USE_DIVISIO N OF RADIOLOGY * * *Final Report* * * DATE OF EXAM: Oct 24 2021 8:16AM WOX [id number] - XR HAND 3V PA/LAT/OBL INOCENTE / PROCEDURE REASON: multiple diagnoses * * * * Physician Interpretation * * * * XR HAND 3V PA/LAT/OBL INOCENTE EXAM DATE/TIME: 10/24/2021 8:16 AM HISTORY: 56 years old Clinical information: Pain in both hands Pain in both hands Bilateral finger pain through out and some left wrist pain after being twisted with a drill x 2 weeks ago. TECHNIQUE: Images: XR HAND 3V PA/LAT/OBL INOCENTE Comparison: None. RESULT: Findings: Bilateral findings: There is moderate narrowing of the interphalangeal joints. Marked narrowing of the radiocarpal joints Right :No fractures or dislocations are seen. Left :No fractures or dislocations are seen. Severe narrowing of the first metacarpal carpal joint. Metallic plate and screws noted in the distal radius but incompletely visualized on this study. ZZZ_DO_NOT_ USE_DIVISIO N OF RADIOLOGY Provider, [facility] - 2021 * * *Final Report* * * DATE OF EXAM: Oct 24 2021 8:16AM WOX [id number] - XR HAND 3V PA/LAT/OBL INOCENTE / PROCEDURE REASON: multiple diagnoses * * * * Physician Interpretation * * * * XR HAND 3V PA/LAT/OBL INOCENTE EXAM DATE/TIME: 10/24/2021 8:16 AM HISTORY: 56 years old Clinical information: Pain in both hands Pain in both hands Bilateral finger pain through out and some left wrist pain after being twisted with a drill x 2 weeks ago. TECHNIQUE: Images: XR HAND 3V PA/LAT/OBL INOCENTE Comparison: None. RESULT: Findings: Bilateral findings: There is moderate narrowing of the interphalangeal joints. Marked narrowing of the radiocarpal joints Right :No fractures or dislocations are seen. Left :No fractures or dislocations are seen. Severe narrowing of the first metacarpal carpal joint. Metallic plate and screws noted in the distal radius but incompletely visualized on this study. IMPRESSION IMPRESSION: Moderate degenerative changes in both hands Manager System: [email or web address] Transcribe Date/Time: 2021 11:26A Dictated by : LANETTE PANCHAL DO This examination was interpreted and the report reviewed and electronically signed by: LANETTE PANCHAL DO on 2021 11:27AM [facility] No Panel Informationon 10-24 Radiology Study observation (narrative) [facility] Vital Signs Date Time Vital Sign Value Performing Clinician Melissa bueno 11-24-2024 09:32-0400 Body mass index (BMI) [Ratio] 35.3 kg/m2 Uche Oseguera MD Work Phone: [facility] 11-24-2024 09:32-0400 Body temperature 98.49 [degF] Uche Oseguera MD Work Phone: [facility] 11-24-2024 09:32-0400 Body weight 97.7 kg Uche Oseguera MD Work Phone: [facility] 11-24-2024 09:32-0400 Diastolic blood pressure 74 mm[Hg] Uche Oseguera MD Work Phone: [facility] 11-24-2024 09:32-0400 Heart rate 81 /min Uche Oseguera MD Work Phone: [facility] 11-24-2024 09:32-0400 Respiratory rate 18 /min Uche Oseguera MD Work Phone: [facility] 11-24-2024 09:32-0400 SaO2% (BldA) [Mass fraction] 97 % Uche Oseguera MD Work Phone: [facility] 11-24-2024 09:32-0400 Systolic blood pressure 118 mm[Hg] Uche Oseguera MD Work Phone: [facility] 11-15-2024 19:33-0400 Body mass index (BMI) [Ratio] 36.06 kg/m2 Marvel Knight APRN.CLINICAL PHLEBOTOMIST Work Phone: [facility] 11-15-2024 19:33-0400 Body temperature 99.61 [degF] Marvel Knight APRN.CLINICAL PHLEBOTOMIST Work Phone: [facility] 11-15-2024 19:33-0400 Body weight 99.8 kg Marvel Knight APRN.CLINICAL PHLEBOTOMIST Work Phone: [facility] 11-15-2024 19:33-0400 Diastolic blood pressure 72 mm[Hg] Marvel Knight APRN.CLINICAL PHLEBOTOMIST Work Phone: [facility] 11-15-2024 19:33-0400 Heart rate 62 /min Marvel Salgadoleroman FUELS ENGINEER.CLINICAL PHLEBOTOMIST Work Phone: [facility] 11-15-2024 19:33-0400 Respiratory rate 18 /min Marvel Hustonroman FUELS ENGINEER.CLINICAL PHLEBOTOMIST Work Phone: [facility] 11-15-2024 19:33-0400 SaO2% (BldA) [Mass fraction] 96 % Marvel Knight FUELS ENGINEER.CLINICAL PHLEBOTOMIST Work Phone: [facility] 11-15-2024 19:33-0400 Systolic blood pressure 118 mm[Hg] Marvel Naomileroman FUELS ENGINEER.CLINICAL PHLEBOTOMIST Work Phone: [facility] 10-02-2024 07:13-0400 Body mass index (BMI) [Ratio] 37.5 kg/m2 Marvel Naomiprasannaroman FUELS ENGINEER.CLINICAL PHLEBOTOMIST Work Phone: [facility] 10-02-2024 07:13-0400 Body temperature 98.4 [degF] Marvel Hustonroman FUELS ENGINEER.CLINICAL PHLEBOTOMIST Work Phone: [facility] 10-02-2024 07:13-0400 Body weight 103.8 kg Marvelmarcelino Hustonroman FUELS ENGINEER.CLINICAL PHLEBOTOMIST Work Phone: [facility] 10-02-2024 07:13-0400 Diastolic blood pressure 72 mm[Hg] Marvel Naomiprasannaroman FUELS ENGINEER.CLINICAL PHLEBOTOMIST Work Phone: [facility] 10-02-2024 07:13-0400 Heart rate 88 /min Marvel Hustonroman FUELS ENGINEER.CLINICAL PHLEBOTOMIST Work Phone: [facility] 10-02-2024 07:13-0400 Respiratory rate 18 /min Marvel Salgadoleroman FUELS ENGINEER.CLINICAL PHLEBOTOMIST Work Phone: [facility] 10-02-2024 07:13-0400 SaO2% (BldA) [Mass fraction] 97 % Marvel Knight FUELS ENGINEER.CLINICAL PHLEBOTOMIST Work Phone: [facility] 10-02-2024 07:13-0400 Systolic blood pressure 122 mm[Hg] [facility] FUELS ENGINEER.CLINICAL PHLEBOTOMIST Work Phone: [facility] 07-05-2024 10:06-0500 Body mass index (BMI) [Ratio] 37.43 kg/m2 Marvel [facility] FUELS ENGINEER.CLINICAL PHLEBOTOMIST Work Phone: [facility] 07-05-2024 10:06-0500 Body temperature 98.1 [degF] [facility] FUELS ENGINEER.CLINICAL PHLEBOTOMIST Work Phone: [facility] 07-05-2024 10:06-0500 Body weight 103.6 kg [facility] FUELS ENGINEER.CLINICAL PHLEBOTOMIST Work Phone: [facility] 07-05-2024 10:06-0500 Diastolic blood pressure 70 mm[Hg] [facility] FUELS ENGINEER.CLINICAL PHLEBOTOMIST Work Phone: [facility] 07-05-2024 10:06-0500 Heart rate 84 /min Marvelmarcelino Knight FUELS ENGINEER.CLINICAL PHLEBOTOMIST Work Phone: [facility] 07-05-2024 10:06-0500 Respiratory rate 16 /min [facility] FUELS ENGINEER.CLINICAL PHLEBOTOMIST Work Phone: [facility] 07-05-2024 10:06-0500 SaO2% (BldA) [Mass fraction] 96 % [facility] FUELS ENGINEER.CLINICAL PHLEBOTOMIST Work Phone: [facility] 07-05-2024 10:06-0500 Systolic blood pressure 142 mm[Hg] [facility] FUELS ENGINEER.CLINICAL PHLEBOTOMIST Work Phone: [facility] 02-17-2024 08:03-0400 Body mass index (BMI) [Ratio] 35.01 kg/m2 Rigoberto Shrestha MD Work Phone: [facility] 02-17-2024 08:03-0400 Body weight 96.9 kg Rigoberto Shrestha MD Work Phone: [facility] 02-17-2024 08:03-0400 Diastolic blood pressure 72 mm[Hg] Rigoberto Shrestha MD Work Phone: [facility] 02-17-2024 08:03-0400 Heart rate 70 /min Rigoberto Shrestha MD Work Phone: [facility] 02-17-2024 08:03-0400 SaO2% (BldA) [Mass fraction] 97 % Rigoberto Shrestha MD Work Phone: [facility] 02-17-2024 08:03-0400 Systolic blood pressure 132 mm[Hg] Rigoberto Shrestha MD Work Phone: [facility] 12-24-2023 08:28-0400 Body mass index (BMI) [Ratio] 34.09 kg/m2 Rigoberto Shrestha MD Work Phone: [facility] 12-24-2023 08:28-0400 Body weight 94.35 kg Rigoberto Shrestha MD Work Phone: [facility] 12-24-2023 08:28-0400 Diastolic blood pressure 67 mm[Hg] Rigoberto Shrestha MD Work Phone: [facility] 12-24-2023 08:28-0400 Heart rate 77 /min Rigoberto Shrestha MD Work Phone: [facility] 12-24-2023 08:28-0400 SaO2% (BldA) [Mass fraction] 97 % Rigoberto Shrestha MD Work Phone: [facility] 12-24-2023 08:28-0400 Systolic blood pressure 114 mm[Hg] Rigoberto Shrestha MD Work Phone: [facility] 06-30-2023 05:04-0500 Heart rate 81 /min [facility] 06-30-2023 05:04-0500 Respiratory rate 18 /min [facility] 06-30-2023 05:04-0500 SaO2% (BldA) [Mass fraction] 96 % [facility] 06-30-2023 04:20-0500 Body height 167.64 cm [facility] 06-30-2023 04:20-0500 Body mass index (BMI) [Ratio] 33.9 kg/m2 [facility] 06-30-2023 04:20-0500 Body temperature 97.2 [degF] [facility] 06-30-2023 04:20-0500 Body weight 95.3 kg [facility] 06-30-2023 04:20-0500 Diastolic blood pressure 80 mm[Hg] [facility] 06-30-2023 04:20-0500 Systolic blood pressure 152 mm[Hg] [facility] 06-28-2023 19:25-0500 Body temperature 98.1 [degF] Marni Athy PA-C Work Phone: [facility] 06-28-2023 19:25-0500 Body weight 95.25 kg Marni Athy PA-C Work Phone: [facility] 06-28-2023 19:25-0500 Diastolic blood pressure 72 mm[Hg] Marni Athy PA-C Work Phone: [facility] 06-28-2023 19:25-0500 Heart rate 76 /min Marni Athy PA-C Work Phone: [facility] 06-28-2023 19:25-0500 Respiratory rate 16 /min Marni Athy PA-C Work Phone: [facility] 06-28-2023 19:25-0500 SaO2% (BldA) [Mass fraction] 98 % Marni Athy PA-C Work Phone: [facility] 06-28-2023 19:25-0500 Systolic blood pressure 126 mm[Hg] Marni Athy PA-C Work Phone: [facility] 05-29-2023 08:45-0500 Body temperature 100.4 [degF] Bárbara Lacey APRN.CLINICAL PHLEBOTOMIST Work Phone: [facility] 05-29-2023 08:45-0500 Body weight 93.89 kg Bárbara Lacey APRN.CLINICAL PHLEBOTOMIST Work Phone: [facility] 05-29-2023 08:45-0500 Diastolic blood pressure 82 mm[Hg] Bárbara Lacey APRN.CLINICAL PHLEBOTOMIST Work Phone: [facility] 05-29-2023 08:45-0500 Heart rate 97 /min Bárbara Lacey APRN.CLINICAL PHLEBOTOMIST Work Phone: [facility] 05-29-2023 08:45-0500 Respiratory rate 18 /min Bárbara Lacey APRN.CLINICAL PHLEBOTOMIST Work Phone: [facility] 05-29-2023 08:45-0500 SaO2% (BldA) [Mass fraction] 97 % Bárbara Lacey APRN.CLINICAL PHLEBOTOMIST Work Phone: [facility] 05-29-2023 08:45-0500 Systolic blood pressure 140 mm[Hg] Bárbara Lacey FUELS ENGINEER.CLINICAL PHLEBOTOMIST Work Phone: [facility] 12-13-2022 07:38-0400 Body temperature 98.01 [degF] Ayse Kumar PA-C Work Phone: [facility] 12-13-2022 07:38-0400 Body weight 101.61 kg Ayse Kumar PA-C Work Phone: [facility] 12-13-2022 07:38-0400 Diastolic blood pressure 80 mm[Hg] Ayse Kumar PA-C Work Phone: [facility] 12-13-2022 07:38-0400 Heart rate 72 /min Ayse Kumar PA-C Work Phone: [facility] 12-13-2022 07:38-0400 Respiratory rate 18 /min Ayse Kumar PA-C Work Phone: [facility] 12-13-2022 07:38-0400 Systolic blood pressure 132 mm[Hg] Ayse Kumar PA-C Work Phone: [facility] 10-22-2022 16:28-0400 Body temperature 98.1 [degF] Chastity Liz FUELS ENGINEER.CLINICAL PHLEBOTOMIST Work Phone: [facility] 10-22-2022 16:28-0400 Body weight 96.34 kg Chastity Liz FUELS ENGINEER.CLINICAL PHLEBOTOMIST Work Phone: [facility] 10-22-2022 16:28-0400 Diastolic blood pressure 82 mm[Hg] Chastity Liz FUELS ENGINEER.CLINICAL PHLEBOTOMIST Work Phone: [facility] 10-22-2022 16:28-0400 Heart rate 90 /min Chastity Liz FUELS ENGINEER.CLINICAL PHLEBOTOMIST Work Phone: [facility] 10-22-2022 16:28-0400 Respiratory rate 16 /min Chastity Liz FUELS ENGINEER.CLINICAL PHLEBOTOMIST Work Phone: [facility] 10-22-2022 16:28-0400 SaO2% (BldA) [Mass fraction] 97 % Chastity Liz FUELS ENGINEER.CLINICAL PHLEBOTOMIST Work Phone: [facility] 10-22-2022 16:28-0400 Systolic blood pressure 148 mm[Hg] Chastity Liz FUELS ENGINEER.CLINICAL PHLEBOTOMIST Work Phone: [facility] 10-08-2022 21:28-0400 Body height 170.18 cm [facility] 10-08-2022 21:28-0400 Body mass index (BMI) [Ratio] 34.1 kg/m2 [facility] 10-08-2022 21:28-0400 Body temperature 97.8 [degF] [facility] 10-08-2022 21:28-0400 Body weight 98.88 kg [facility] 10-08-2022 21:28-0400 Diastolic blood pressure 71 mm[Hg] [facility] 10-08-2022 21:28-0400 Heart rate 96 /min [facility] 10-08-2022 21:28-0400 Respiratory rate 16 /min [facility] 10-08-2022 21:28-0400 SaO2% (BldA) [Mass fraction] 97 % [facility] 10-08-2022 21:28-0400 Systolic blood pressure 186 mm[Hg] [facility] 03-23-2022 08:01-0400 Body height 166.4 cm Marvel Collado MD Work Phone: [facility] 03-23-2022 08:01-0400 Body weight 97.52 kg Marvel Collado MD Work Phone: [facility] 03-23-2022 08:01-0400 Diastolic blood pressure 76 mm[Hg] Marvel Collado MD Work Phone: [facility] 03-23-2022 08:01-0400 Heart rate 74 /min Marvel Collado MD Work Phone: [facility] 03-23-2022 08:01-0400 Respiratory rate 16 /min Marvel Collado MD Work Phone: [facility] 03-23-2022 08:01-0400 Systolic blood pressure 128 mm[Hg] Marvel Collado MD Work Phone: [facility] 01-20-2022 08:33-0400 Diastolic blood pressure 67 mm[Hg] Kendy Larkin MD Work Phone: [facility] 01-20-2022 08:33-0400 Heart rate 65 /min Kendy Larkin MD Work Phone: [facility] 01-20-2022 08:33-0400 Respiratory rate 16 /min Kendy Larkin MD Work Phone: [facility] 01-20-2022 08:33-0400 SaO2% (BldA) [Mass fraction] 99 % Kendy Larkin MD Work Phone: [facility] 01-20-2022 08:33-0400 Systolic blood pressure 122 mm[Hg] Kendy Larkin MD Work Phone: [facility] 01-20-2022 07:07-0400 Body temperature 97.39 [degF] Kendy Larkin MD Work Phone: [facility] Encounters Encounter Date Encounter Type Care Provider Facility Start: 11-24-2024 End: 11-24-2024 Follow-up encounter Uche Oseguera MD Work Phone: [facility] Comment on above: Results Start: 11-24-2024 End: 11-24-2024 Subsequent hospital visit by physician [facility] Work Phone: Radiology Comment on above: Productive cough [R0 5.8] Start: 11-24-2024 End: 11-24-2024 Patient encounter procedure Uche Oseguera MD Work Phone: Family [facility] Comment on above: Sinobronchitis (Prim yoli Dx); Productive cough Start: 11-24-2024 End: 11-24-2024 ambulatory [facility] Facility:[facility] Start: 11-15-2024 End: 11-15-2024 Office outpatient visit 25 minutes Marvel Knight APRN.CLINICAL PHLEBOTOMIST Work Phone: [facility] Comment on above: Wheezing (Primary Dx ); Sinobronchitis Start: 11-15-2024 End: 11-15-2024 ambulatory [facility] Facility:[facility] Start: 10-15-2024 End: 12-15-2024 Follow-up encounter Rigoberto Shrestha MD Work Phone: [facility] Start: 10-13-2024 End: 10-13-2024 ambulatory [facility] Facility:[facility] Start: 10-05-2024 End: 10-05-2024 ambulatory [facility] Start: 10-04-2024 End: 10-04-2024 Telephone encounter Rigoberto Shrestha MD Work Phone: Family [facility] Comment on above: Patient Question Start: 10-02-2024 End: 10-02-2024 [facility] Facility:[facility] Start: 10-02-2024 End: 10-02-2024 Office outpatient visit 15 minutes Marvel Knight APRN.CLINICAL PHLEBOTOMIST Work Phone: [facility] Comment on above: Viral illness (Prima ry Dx) Start: 08-21-2024 End: 08-22-2024 ambulatory Rigoberto Shrestha MD Work Phone: Family [facility] Comment on above: Hello Start: 07-05-2024 End: 07-05-2024 Subsequent hospital visit by physician Beverley [facility] Work Phone: Radiology Comment on above: Foot pain, right [M7 9.671] Start: 07-05-2024 End: 07-05-2024 ambulatory [facility] Facility:[facility] Start: 07-05-2024 End: 07-05-2024 Office outpatient visit 15 minutes Marvel Antonia CALI Work Phone: [facility] Comment on above: Foot pain, right (Pr imary Dx); Acute right ankle pain Start: 05-26-2024 End: 05-28-2024 Refill Rigoberto Shrestha MD Work Phone: [facility] Comment on above: Refill Request Start: 02-18-2024 End: 02-18-2024 ambulatory [facility] Facility:[facility] Start: 02-17-2024 End: 02-17-2024 Patient encounter procedure Rigoberto Shrestha MD Work Phone: [facility] Comment on above: Well adult exam (Funmilayo charly Dx); Mixed hyperlipidemia; ZAHIDA (obstructive sleep apnea); Family history of rheumatoid arthritis; Rosacea; Obesity, Class II, BMI 35-39.9; Prediabetes; Severe anxiety with panic Start: 02-17-2024 End: 02-17-2024 Patient encounter status Rigoberto Shrestha MD Work Phone: [facility] Start: 02-17-2024 End: 02-17-2024 ambulatory [facility] Facility:[facility] Start: 02-17-2024 Encounter [facility] adult medical examination without abnormal findings RIGOBERTO SHRESTHA [facility] Start: 01-31-2024 Refill Rigoberto Shrestha MD Work Phone: [facility] Comment on above: Refill Request Start: 01-08-2024 ambulatory Rigoberto Shrestha MD Work Phone: [facility] Comment on above: Rosacea Start: 12-24-2023 End: 12-24-2023 ambulatory [facility] Facility:[facility] Start: 12-24-2023 End: 12-24-2023 Patient encounter procedure Rigoberto Shrestha MD Work Phone: [facility] Comment on above: DDD (degenerative di sc disease), lumbar (Primary Dx); Prediabetes; Left sided sciatica Start: 08-24-2023 Telephone encounter Shailesh bashir PT Work Phone: [facility] Start: 08-11-2023 End: 08-11-2023 ambulatory Shailesh Darian PT Work Phone: [facility] Comment on above: Sciatica, right side Start: 06-30-2023 Chart abstracting Marvel may MD Work Phone: [facility] Comment on above: ER Discharge Summary Start: 06-30-2023 End: 06-30-2023 Emergency department patient visit [facility] Work Phone: Start: 06-28-2023 End: 06-28-2023 Patient encounter procedure Marni Mcneill PAYeseniaC Work Phone: [facility] Comment on above: Lumbar radiculopathy (Primary Dx); Recurrent cold sores Start: 06-24-2023 Refill Ayse LOZOYAC Work Phone: [facility] Comment on above: Refill Request Start: 05-31-2023 Telephone encounter [facility] Work Phone: [facility] Comment on above: note Start: 05-30-2023 Telephone encounter Bárbara Lacey APRN.CLINICAL PHLEBOTOMIST Work Phone: [facility] Comment on above: Results Orders Start: 05-29-2023 ambulatory Marvel jimenez MD Work Phone: [facility] Comment on above: Covid19 home test Start: 05-29-2023 End: 05-29-2023 Patient encounter procedure Bárbara Lacey APRN.CLINICAL PHLEBOTOMIST Work Phone: [facility] Comment on above: Sore throat (Primary Dx); URI, acute Start: 12-14-2022 Telephone encounter Ayse LOZOYAC Work Phone: [facility] Comment on above: Results Start: 12-13-2022 End: 12-13-2022 Patient encounter procedure Ayse Kumar PA-C Work Phone: [facility] Comment on above: Mixed hyperlipidemia (Primary Dx); Elevated hemoglobin A1c; Severe anxiety with panic; Rosacea; Obesity, Class II, BMI 35-39.9; Leg cramps Start: 11-03-2022 Refill Ayse LOZOYAC Work Phone: [facility] Comment on above: Refill Request Start: 10-23-2022 Refill Yesica potter FUELS ENGINEER.CLINICAL PHLEBOTOMIST Work Phone: [facility] Comment on above: Refill Request Start: 10-22-2022 End: 10-22-2022 Patient encounter procedure Chastity Liz FUELS ENGINEER.CLINICAL PHLEBOTOMIST Work Phone: [facility] Comment on above: Visit for wound chec k (Primary Dx); Lumbar radiculopathy Start: 10-14-2022 Chart abstracting Marvel may MD Work Phone: [facility] Comment on above: ER F/U Start: 10-08-2022 End: 10-09-2022 Emergency department patient visit [facility] Start: 09-28-2022 Refill Selvin KRAUSE RN.CLINICAL PHLEBOTOMIST, DNP Work Phone: [facility] Comment on above: Refill Request Start: 08-03-2022 Registered [facility] Start: 03-24-2022 Telephone encounter Ayse tomlinson PA-C Work Phone: [facility] Comment on above: Results Start: 03-23-2022 End: 03-23-2022 Patient encounter procedure Marvel Collado MD Work Phone: [facility] Comment on above: Well adult exam (Funmilayo charly Dx); Mixed hyperlipidemia; Elevated hemoglobin A1c; Severe anxiety with panic; ZAHIDA (obstructive sleep apnea); Obesity, Class II, BMI 35-39.9; Screening for prostate cancer; Medication management; Leg cramps; Rosacea Start: 03-23-2022 End: 07-15-2023 Patient encounter status Marvel Collado MD Work Phone: [facility] Start: 01-20-2022 End: 01-20-2022 Subsequent hospital visit by physician Kendy Larkin MD Work Phone: Ambulatory Surgery Comment on above: Gastroesophageal ref lux disease, unspecified whether esophagitis present [K21.9] Start: 01-19-2022 ambulatory Marvel jimenez MD Work Phone: [facility] Comment on above: Colonoscopy Start: 01-18-2022 ambulatory Clyde trejo MD Work Phone: General Surgery Comment on above: Colonoscopy Preparat ion Start: 01-18-2022 Telephone encounter Marvel Collado MD Work Phone: [facility] [place] Comment on above: Patient Question; Me dication Question Start: 11-03-2021 Telephone encounter Marvel Collado MD Work Phone: [facility] [place] Comment on above: Medication Problem Start: 10-24-2021 End: 10-24-2021 Subsequent hospital visit by physician Xr [facility] Work Phone: Radiology Comment on above: Neck pain [M54.2] Start: 09-25-2021 Refill Marvel jimenez MD Work Phone: [facility] [place] Comment on above: Refill Request Procedures Date Procedure Procedure Detail Performing Clinician Start: 11-24-2024 Radiologic exam chest 2 views Riki Oseguera MD Work Phone: Start: 07-05-2024 Radex ankle complete minimum 3 views Marvel Knight APRN.CLINICAL PHLEBOTOMIST Work Phone: Start: 02-18-2024 Lipid 1996 panel - Serum or Plasma Xr Wo thomas Work Phone: Start: 05-29-2023 STREP A MOLECULAR (POC) Marvel lozano FUELS ENGINEER.CLINICAL PHLEBOTOMIST Work Phone: Start: 12-13-2022 Lipid 1996 panel - Serum or Plasma Raymundo Shrestha MD Work Phone: Start: 10-08-2022 CT of head without contrast Start: 01-20-2022 Esophagogastroduodenoscopy transoral diagnostic Clyde Willoughby MD Work Phone: Start: 01-20-2022 Colon ca scrn not hi rsk ind Clyde yepez MD Work Phone: Start: 01-20-2022 Colonoscopy Marvel Collado MD Work Phone: Start: 10-24-2021 Radex spine cervical 4 or 5 views Charley Collado MD Work Phone: Start: 10-27-2015 Colonoscopy Marvel Collado MD Work Phone: Plan of Treatment Date Care Activity Detail Author Start: 10-24-2038 RSV Vaccine (1 - 1-d ose 75+ series) RSV Vaccine (1 - 1-dose 75+ series) [facility] Start: 10-08-2032 Urine microalbumin profile [facility] Start: 01-08-2030 ONE PNEUMOVAX PRIOR TO AGE 65 ONE PNEUMOVAX PRIOR TO AGE 65 [facility] Comment on above: Postponed from 10/24 (Postponed To Appropriate Date) Start: 01-08-2030 PNEUMOCOCCAL (1 - PCV) PNEUMOCOCCAL (1 - PCV) [facility] Comment on above: Postponed from 10/24 (Postponed To Appropriate Date) Start: 02-17-2029 Lipid panel Lipid Screening [facility] Start: 02-17-2029 Prostate specific antigen measurement Prostate Cancer Screening Discussion [facility] Start: 12-14-2027 Lipid panel Lipid Screening [facility] Start: 12-09-2027 Urine microalbumin profile DTAP,TDAP,TD (2 - Td or Tdap) [facility] Start: 03-23-2027 PROSTATE CANCER SCREENING DISCUSSION PROSTATE CANCER SCREENING DISCUSSION [facility] Start: 03-23-2027 Prostate specific antigen measurement Prostate Cancer Screening Discussion [facility] Start: 02-17-2027 Diabetes Screening Diabetes Screenin g [facility] Start: 01-20-2027 Colonoscopy COLONOSCOPY [facility] Start: 01-20-2027 COLORECTAL CANCER SCREENING COLORECTAL CANCER SCREENING [facility] Start: 01-20-2027 Screening for malign ant neoplasm of colon [facility] Start: 07-15-2026 Diabetes Screening Diabetes Screenin g [facility] Start: 12-25-2024 End: 12-25-2024 Patient encounter procedure 12/25/2024 2:00 PM EDT Office Visit [facility] [address] [place] [address] Rigoberto Shrestha MD [address] [place], [place] [id number] Blood pressure [facility] Comment on above: Blood pressure Start: 12-23-2024 RSV Vaccine (1 - 1-d ose 60+ series) RSV Vaccine (1 - 1-dose 60+ series) [facility] Comment on above: Postponed from 10/24 (Declined at this time) Start: 12-23-2024 Shingrix Vaccine (1 of 2) Shingrix Vaccine (1 of 2) [facility] Comment on above: Postponed from 10/24 (Declined at this time) Start: 11-19-2024 End: 11-19-2024 Patient encounter procedure 11/19/2024 3:00 PM EDT Office Visit [facility] [address] [place] [address] Rigoberto Shrestha MD [address] [place] [address] urgent care follow up (11/15/2024) [facility] Comment on above: urgent care follow u p (11/15/2024) Start: 10-04-2024 End: 01-03-2025 MUMPS IGG AB MUMPS IGG AB Lab Routine Screening for viral disease Expected: 10/04/2024, Expires: 01/03/2025 [facility] Comment on above: Expected: 10/04/2024 , Expires: 01/03/2025 Start: 10-04-2024 End: 01-03-2025 RUBELLA IGG ANTIBODY RUBELLA IGG ANTIBODY Lab Routine Screening for viral disease Expected: 10/04/2024, Expires: 01/03/2025 [facility] Comment on above: Expected: 10/04/2024 , Expires: 01/03/2025 Start: 10-04-2024 End: 01-03-2025 RUBEOLA (MEASLES)IGG RUBEOLA (MEASLES)IGG Lab Routine Screening for viral disease Expected: 10/04/2024, Expires: 01/03/2025 [facility] Work Phone: Comment on above: Expected: 10/04/2024 , Expires: 01/03/2025 Start: 07-15-2024 Annual PCP Team [employer] steven Disease Visit Annual PCP Team Chronic Disease Visit [facility] Start: 07-10-2024 Behavioral Health Screening Behavioral Health Screening [facility] Comment on above: Postponed from 07/11 (Declined at this time) Start: 03-11-2024 Covid-19 Vaccine () Covid-19 Vaccine () [facility] Start: 03-11-2024 Influenza vaccination C [facility] Start: 02-28-2024 End: 02-28-2024 ambulatory 02/28/2024 7:00 AM EDT OT/PT/Speech Visit [facility] [address] [place], [place] [id number] Shailesh Farmer, PT [address] [place], [place] [id number] Sciatica, right side [M54.31] [facility] Comment on above: Sciatica, right side [M54.31] Start: 02-17-2024 Depression Screening Depression Scre ening [facility] Comment on above: Postponed from 10/24 (Declined at this time) Start: 02-17-2024 End: 02-17-2024 Patient encounter procedure 02/17/2024 8:00 AM EDT Office Visit [facility] [address] [place] [address] Rigoberto Shrestha MD [address] [place] [address] [facility] Comment on above: Annual Start: 01-13-2024 Hemoglobin A1c measurement HbA1C [facility] Start: 12-14-2023 ANNUAL PCP TEAM BIOMEDICAL EQUIPMENT SUPPORT SPECIALIST STEVEN DISEASE VISIT ANNUAL PCP TEAM CHRONIC DISEASE VISIT [facility] Start: 12-14-2023 Hepatitis B surface antibody level LDL CHOLESTEROL [facility] Start: 07-11-2023 Depression Assessment Depression Ass essment [facility] Start: 06-14-2023 Hemoglobin A1c measurement HbA1C [facility] Start: 06-14-2023 Hemoglobin A1c/Hemoglobin.total in Blood HBA1C [facility] Start: 05-29-2023 End: 06-12-2023 COVID & INFLUENZA A/B & RSV NAAT, ROUTINE COVID & INFLUENZA A/B & RSV NAAT, ROUTINE Microbiology Routine URI, acute Expected: 05/29/2023, Expires: 06/12/2023 [facility] Work Phone: Comment on above: Expected: 05/29/2023 , Expires: 06/12/2023 Start: 03-23-2023 ANNUAL PCP TEAM BIOMEDICAL EQUIPMENT SUPPORT SPECIALIST STEVEN DISEASE VISIT ANNUAL PCP TEAM CHRONIC DISEASE VISIT [facility] Start: 03-23-2023 Hepatitis B surface antibody level LDL CHOLESTEROL [facility] Start: 03-23-2023 SHINGRIX VACCINE (1 of 2) SHINGRIX VACCINE (1 of 2) [facility] Comment on above: Postponed from 10/24 (Insurance Coverage) Start: 03-11-2023 Influenza vaccination C [facility] Start: 12-13-2022 End: 02-12-2023 Comprehensive metabolic 2000 panel - Serum or Plasma [facility] Work Phone: Comment on above: Expected: 12/13/2022 , Expires: 02/12/2023 Start: 12-13-2022 End: 02-12-2023 Hemoglobin A1c in Blood [facility] Work Phone: Comment on above: Expected: 12/13/2022 , Expires: 02/12/2023 Start: 12-13-2022 End: 02-12-2023 LIPID PANEL, NONFASTING [facility] Work Phone: Comment on above: Expected: 12/13/2022 , Expires: 02/12/2023 Start: 12-13-2022 End: 02-12-2023 Magnesium [Mass/volume] in Serum or Plasma [facility] Work Phone: Comment on above: Expected: 12/13/2022 , Expires: 02/12/2023 Start: 12-13-2022 End: 02-12-2023 Urinalysis complete panel - Urine [facility] Work Phone: Comment on above: Expected: 12/13/2022 , Expires: 02/12/2023 Start: 10-24-2022 Hepatitis B surface antibody level LDL CHOLESTEROL [facility] Start: 10-22-2022 ANNUAL PCP TEAM BIOMEDICAL EQUIPMENT SUPPORT SPECIALIST STEVEN DISEASE VISIT ANNUAL PCP TEAM CHRONIC DISEASE VISIT [facility] Start: 09-20-2022 Hemoglobin A1c/Hemoglobin.total in Blood HBA1C [facility] Start: 07-11-2022 DEPRESSION ASSESSMENT DEPRESSION ASS ESSMENT [facility] Start: 05-09-2022 COVID-19 VACCINE (6 - Booster for Pfizer series) COVID-19 VACCINE (6 - Booster for Pfizer series) [facility] Start: 04-25-2022 Hemoglobin A1c/Hemoglobin.total in Blood HBA1C [facility] Start: 03-23-2022 End: 05-23-2022 CBC W Auto Differential panel - Blood [facility] Work Phone: Comment on above: Expected: 03/23/2022 , Expires: 05/23/2022 Start: 03-23-2022 End: 05-23-2022 Comprehensive metabolic 2000 panel - Serum or Plasma [facility] Work Phone: Comment on above: Expected: 03/23/2022 , Expires: 05/23/2022 Start: 03-23-2022 End: 05-23-2022 Hemoglobin A1c in Blood [facility] Work Phone: Comment on above: Expected: 03/23/2022 , Expires: 05/23/2022 Start: 03-23-2022 End: 05-23-2022 LIPID PANEL, NONFASTING [facility] Work Phone: Comment on above: Expected: 03/23/2022 , Expires: 05/23/2022 Start: 03-23-2022 End: 05-23-2022 Prostate specific Ag [Mass/volume] in Serum or Plasma [facility] Work Phone: Comment on above: Expected: 03/23/2022 , Expires: 05/23/2022 Start: 03-23-2022 End: 05-23-2022 Urinalysis complete panel - Urine [facility] Work Phone: Comment on above: Expected: 03/23/2022 , Expires: 05/23/2022 Start: 03-11-2022 Influenza vaccination C [facility] Start: 01-28-2022 Hepatitis B surface antibody level LDL CHOLESTEROL [facility] Start: 01-20-2022 ANNUAL PCP TEAM BIOMEDICAL EQUIPMENT SUPPORT SPECIALIST STEVEN DISEASE VISIT ANNUAL PCP TEAM CHRONIC DISEASE VISIT [facility] Start: 07-31-2021 Hemoglobin A1c/Hemoglobin.total in Blood HBA1C [facility] Start: 03-11-2021 Influenza vaccination INFLUENZA (#1) [facility] Start: 10-26-2020 Colonoscopy COLONOSCOPY [facility] Start: 10-26-2020 COLORECTAL CANCER SCREENING COLORECTAL CANCER SCREENING [facility] Start: 12-15-2018 PROSTATE CANCER SCREENING DISCUSSION PROSTATE CANCER SCREENING DISCUSSION [facility] Start: 10-24-2013 SHINGRIX VACCINE (1 of 2) SHINGRIX VACCINE (1 of 2) [facility] Start: 10-24-2008 COLOGUARD (FIT-DNA) COLOGUARD (FIT-D NA) [facility] Start: 10-24-[address] COLONOGRAPHY [facility] Start: 10-24-2008 FECAL OCCULT BLOOD FECAL OCCULT BLOO D [facility] Start: 10-24-2008 Screening for malign ant neoplasm of colon [facility] Start: 10-24-2008 SIGMOIDOSCOPY SIGMOIDOSCOPY [facility] Start: 10-24-1982 HEPATITIS B (1 of 3 - Risk 3-dose series) HEPATITIS B (1 of 3 - Risk 3-dose series) [facility] Start: 10-24-1981 Depression Screening Depression Scre ening [facility] Start: 10-24-1981 HEPATITIS C SCREENING HEPATITIS C SC REENING [facility] Start: 10-24-1981 HIV SCREENING HIV SCREENING [facility] Patient Education Understanding Lumbar Radiculopathy [facility] Work Phone: Patient referral [facility] Work Phone: SURGICAL PATHOLOGY [facility] Work Phone: Comment on above: Release Upon Orderin g for 1 Occurrences starting 01/20/2022, 1 completed [facility] Immunizations Immunization Date Immunization Notes Care Provider Gloria harris 05-21-2023 COVID-19 vaccine, ag e 12+ yr, 2022- season (PFIZER-BIONTECH) Bárbara Lacey APRN.CLINICAL PHLEBOTOMIST Work Phone: [facility] 01-19-2023 pneumococcal (PCV20) vaccine, 20 valent (PREVNAR 20) Bárbara Lacey APRN.CLINICAL PHLEBOTOMIST Work Phone: [facility] 10-09-2022 tetanus toxoid, redu wei diphtheria toxoid, and acellular pertussis vaccine, adsorbed [facility] 10-08-2022 tetanus toxoid, redu wei diphtheria toxoid, and acellular pertussis vaccine, adsorbed Marvel Collado MD Work Phone: [facility] Work Phone: 05-16-2022 influenza, injectabl e, quadrivalent, preservative free Bárbara Lacey APRN.CLINICAL PHLEBOTOMIST Work Phone: [facility] 05-16-2022 influenza virus vaccine, unspecified formulation Bárbara Lacey APRN.CLINICAL PHLEBOTOMIST Work Phone: [facility] 03-14-2022 COVID-19 vaccine, ag e 12+ yr (PFIZER-BIONTECH - PURPLE TOP) Marvel Collado MD Work Phone: [facility] Work Phone: 03-14-2022 COVID-19 vaccine, ag e 12+ yr, bivalent (MODERNA) Bárbara Lacey APRN.CLINICAL PHLEBOTOMIST Work Phone: [facility] 04-19-2021 COVID-19 vaccine, ag e 12+ yr (PFIZER-BIONTECH - PURPLE TOP) Marvel Collado MD Work Phone: [facility] 10-14-2020 COVID-19 vaccine, ag e 12+ yr (PFIZER-BIONTECH - PURPLE TOP) Marvel Collado MD Work Phone: [facility] Work Phone: 09-23-2020 COVID-19 vaccine, ag e 12+ yr (PFIZER-BIONTECH - PURPLE TOP) Marvel Collado MD Work Phone: [facility] Work Phone: 05-14-2019 influenza, injectabl e, quadrivalent, contains preservative Marvel Collado MD Work Phone: [facility] 05-15-2018 influenza, injectabl e, quadrivalent, contains preservative Marvel Collado MD Work Phone: [facility] 12-08-2017 tetanus toxoid, redu wei diphtheria toxoid, and acellular pertussis vaccine, adsorbed [facility] 02-16-2014 tetanus toxoid, redu wei diphtheria toxoid, and acellular pertussis vaccine, adsorbed Bárbara Lacey APRN.[facility] Work Phone: [facility] Payers Date Payer Category Payer Self-pay [id number] 2022 Private Health Insurance [employer] E [id number] 2022 Unknown [id number] 2019 Unknown MMO MMO [employer] [id number] 2019-Present [phone] [address] [place] [address] PPO [id number] 2019 Unknown [id number] Unknown LIZZY [id number] Unknown [facility] [id number] Unknown [id number] Social History Date Type Detail Facility Start: 08-21-2017 End: 10-22-2022 Tobacco smoking status NHIS Never smoked tobacco [facility] Start: 01-20-2021 End: 10-02-2024 Alcohol intake Current non-drinker of alcohol (finding) [facility] Start: 07-30-2020 End: 10-22-2021 History SDOH Alcohol Frequency 2 [facility] Start: 07-30-2020 End: 10-22-2021 History SDOH Alcohol Std Drinks 1 [facility] Start: 07-30-2020 History SDOH Social Connections Phone 4 [facility] Start: 07-30-2020 End: 10-22-2021 History SDOH Social Connections Orthodoxy 3 [facility] Start: 07-30-2020 End: 10-22-2021 History SDOH Social Connections Living 5 [facility] Start: 07-30-2020 Education 16 [facility] Start: 1965 Sex Assigned At Not on file [facility] Start: 10-22-2021 History SDOH Alcohol Std Drinks 98 [facility] Start: 1965 Sex Assigned At Male [facility] Start: 10-09-2021 End: 03-23-2022 Exposure to SARS-CoV-2 (event) Not sure [facility] Start: 08-21-2017 End: 10-22-2022 Tobacco use and exposure Smokeless tobacco non-user [facility] Start: 10-08-2022 End: 06-30-2023 Tobacco smoking status NHIS Unknown if ever smoked [facility] Start: 10-21-2021 End: 12-03-2022 History of Social function [facility] Start: 10-21-2021 End: 12-03-2022 Social connection and isolation panel [facility] How often do you get together with friends or relatives? Patient refused [facility] Do you belong to any clubs or organizations such as sikh groups, unions, fraternal or athletic groups, or school groups? No [facility] Are you now , , , , never or living with a partner? [facility] How often to you hav e a drink containing alcohol? Never [facility] (I/We) worried wheth er (my/our) food would run out before (I/we) got money to buy more. Never true [facility] Start: 10-11-2021 Gender identity Identifies as male gender (finding) [facility] Start: 10-11-2021 Sexual orientation Heterosexual (finding) [facility] Do you feel stress - tense, restless, nervous, or anxious, or unable to sleep at night because your mind is troubled all the time - these days [OSQ] Not at all [facility] Medical Equipment Procedure Code Equipment Code Equipment Origin al Text Equipment Identifier Dates Test blood sugar (s) 1 times daily. Dx: Type 2 DM - Uncontrolled E11.65 Insulin: No [id number], [id number] Start: 08-03-2018 Comment on above: Test blood sugar(s) 1 times daily. Dx: Type 2 DM - Uncontrolled E11.65 Insulin: No Functional Status Date Assessment Result Facility 11-16-2024 Total score [AUDIT-C] 0 11/17/19 5:30 PM EDT UserDean [facility] 11-16-2024 How often to you hav e a drink containing alcohol? Never 11/16/2024 5:30 PM EDT UserDean Never [facility] 11-16-2024 Functional status Patient does n ot drink 11/16/2024 5:30 PM EDT UserDean Patient does not drink [facility] 11-16-2024 How often do you hav e 6 or more drinks on 1 occasion? Never 11/16/2024 5:30 PM EDT UserDean Never [facility] Clinical Notes 07-08-2017 to 11-24-2024 Telephone Encounter - Anaya Felix LPN - 11/24/2024 11:16 AM EDTTelephone Encounter - Anaya Felix LPN - 11/24/2024 11:16 AM EDTZena Dacosta, RT(R) - 11/24/2024 10:10 AM EDT Note Date & Type Note Facility 11-24-2024 Telephone encounter Note Phoned patient and spoke with his daughter as indicated. Reviewed results with her and she voiced understanding. Anaya Felix LPN [facility] 11-24-2024 Miscellaneous Notes Phoned patient and spoke with his daughter as indicated. Reviewed results with her and she voiced understanding. Anaya Felix LPN ----- Message from Uche Oseguera MD sent at 11/24/2024 10:53 AM EDT ----- CXR negative for pneumonia. Does show signs of bronchitis. Typically bronchitis is a viral infection which we treat with cough medications and albuterol inhalers, which we have already prescribed. Continue treatment as discussed in office and call if symptoms are worsening or not improving in the next 1 week. documented in this encounter [facility] 11-24-2024 Telephone encounter Note ----- Message from Uche Oseguera MD sent at 11/24/2024 10:53 AM EDT ----- CXR negative for pneumonia. Does show signs of bronchitis. Typically bronchitis is a viral infection which we treat with cough medications and albuterol inhalers, which we have already prescribed. Continue treatment as discussed in office and call if symptoms are worsening or not improving in the next 1 week. [facility] 11-24-2024 History of Presen t illness Narrative Radiology Service Progress Note PATIENT NAME: Jose Fierro DATE OF SERVICE: November 24, 2024 TIME: 10:01 AM PATIENT IDENTITY VERIFICATION COMPLETED USING TWO (2) IDENTIFIERS: Name and Date of confirmed by patient verbally. FALL SCREENING: Has the patient had 2 falls in the last year or 1 fall with injury or currently using an Ambulatory Assistive Device (Walker, Cane, Wheelchair, Crutches, etc.)? No PATIENT GENDER DATA: Assigned male at PATIENT RELEVANT IMPLANT DATA REVIEWED: Not Applicable PATIENT PRESENTS WITH AN IMPLANTABLE OR ATTACHED TORQUE TESTER: No RADIOLOGY DEPARTMENT: General X-ray: Exam(s) Completed: Chest X-Ray PERIPHERAL IV DATA: Not applicable SIGNED BY: RT Reid(Neyda) November 24, 2024 10:01 AM documented in this encounter [facility] 11-24-2024 Note HNO ID: [id number] Author: ZENA DACOSTA RT(R) Service: Radiology Author Type: Technologist Type: Progress Notes Filed: 11/24/2024 10:07 Note Text: Radiology Service Progress Note PATIENT NAME: Jose Fierro DATE OF SERVICE: November 24, 2024 TIME: 10:01 AM PATIENT IDENTITY VERIFICATION COMPLETED USING TWO (2) IDENTIFIERS: Name and Date of confirmed by patient verbally. FALL SCREENING: Has the patient had 2 falls in the last year or 1 fall with injury or currently using an Ambulatory Assistive Device (Walker, Cane, Wheelchair, Crutches, etc.)? No PATIENT GENDER DATA: Assigned male at PATIENT RELEVANT IMPLANT DATA REVIEWED: Not Applicable PATIENT PRESENTS WITH AN IMPLANTABLE OR ATTACHED TORQUE TESTER: No RADIOLOGY DEPARTMENT: General X-ray: Exam(s) Completed: Chest X-Ray PERIPHERAL IV DATA: Not applicable SIGNED BY: RT Reid(Neyda) November 24, 2024 10:01 AM [facility] 11-24-2024 Instructions Uche Oseguera MD - 11/24/2024 9:58 AM EDT Continue using your albuterol inhaler as needed--take 2 puffs every 4 hours for coughing, wheezing, or shortness of breath. Start taking the prescribed Tessalon for your cough; you may use it up to 3 times a day as needed. Continue taking your lvla-can-qnfakua Dayquil as usual. A chest x-ray was performed today to rule out pneumonia. If your cough worsens, if you begin bringing up more thick, green phlegm, develop a fever, experience increased chest pain, or notice more shortness of breath, please call us right away. If you continue to notice floaters in your vision, schedule an appointment with an eye doctor. documented in this encounter [facility] 11-24-2024 Note HNO ID: [id number] Author: UCHE OSEGUERA MD Service: ? Author Type: Physician Type: Progress Notes Filed: 11/24/2024 09:59 Note Text: Chief Complaint Patient presents with: Follow Up: Cough- continues from previous visit Recording using Tallyfy software for draft documentation of the visit was discussed with the patient/authorized lead generation representative; all questions welcomed and answered. Patient/authorized lead generation representative agreed to proceed HPI Jose Fierro is a 59 year old male who presents here today for Above Complaints. Accompanied today by his daughter Irene who is translating. Refusing hem inspector phone today. Cough: - Persistent cough since [facility] visit on November 15. - Initially presented with cough, chest congestion, sore throat, headache, sinus pressure, and nasal congestion. - Diagnosed with wheezing and sinobronchitis; started on albuterol inhaler PRN and doxycycline 100 mg BID for 7 days. - Symptoms have improved slightly, but cough remains. - Productive cough with yellow-green sputum. - Mild wheezing, more pronounced at night. - Mild chest pain and congestion when coughing. - Nasal congestion and sinus pressure have resolved. - Mild sore throat in the morning. - Denies fevers, chills, myalgias, or significant fatigue. - No new anosmia or ageusia. - Diarrhea occurred 3 days ago but has since resolved. - No history of asthma or COPD. - Using albuterol inhaler BID with some relief. - Taking DayQuil and another unspecified OTC medication without significant improvement. - Reports seeing floaters in vision. Past medical history, appointments, medications, allergies reviewed. Previous Medical History PAST MEDICAL HISTORY Diagnosis Date Arthritis of both hands 10/26/2021 mod Arthritis of left knee 09/29/2015 Arthritis of neck 10/26/2021 Mod Cervical radiculopathy 11/01/2018 Elevated hemoglobin A1c 10/14/2015 Family history of rheumatoid arthritis 10/22/2021 father Hemorrhoids History of colonic polyps 01/20/2021 Impingement syndrome of shoulder region 11/01/2018 Mixed hyperlipidemia 05/21/2018 Obesity, Class II, BMI 35-39.9 09/29/2015 ZAHIDA (obstructive sleep apnea) 12/08/2016 AutoPAP 5-20 DME [facility] Plantar fasciitis 07/08/2017 Radius fracture Rosacea Severe anxiety with panic 05/15/2018 Well adult exam 03/23/2022 Last done: 03/23/2022 Previous Surgical History PAST SURGICAL HISTORY Procedure Laterality Date COLONOSCOPY 01/20/2022 repeat in 5 years COLONOSCOPY FLX DX W/COLLJ SPEC WHEN PFRMD 10/27/2015 Colonoscopy EGD W/O BRSH SPEC VARICIES INJ 01/20/2022 Family History FAMILY HISTORY Problem Relation Age of Onset Stroke Mother Coronary Artery Disease Father Colon Cancer Father other (rheumatoid arthritis) Father Hypertension Sister Diabetes Brother from diabetic coma Lipids Brother Patient Allergies ALLERGIES No Known Allergies Current Medications Current Outpatient Medications on File Prior to Visit Medication Sig albuterol HFA (PROVENTIL HFA, VENTOLIN HFA) 90 mcg/actuation inhaler Inhale 2 puffs as instructed every 6 hours as needed for wheezing/shortness of breath. fluticasone (FLONASE ALLERGY RELIEF) 50 mcg/actuation nasal spray Use 1 Belcher in each nostril once daily. sertraline (ZOLOFT) 50 mg tablet Take 1 tablet by mouth once daily. metFORMIN ER (GLUCOPHAGE XR) 500 mg 24 hr tablet Take 1 tablet by mouth daily with breakfast. metroNIDAZOLE (METROGEL) 1 % Topical Gel Apply 1 application to affected area once daily. Location: cheeks and forehead erythromycin base 250 mg tablet Take 1 tablet by mouth once daily. cyclobenzaprine (FLEXERIL) 10 mg tablet Take 1 tablet by mouth three times a day as needed for muscle spasm. (Patient not taking: Reported on 11/15/2024) Zinc Gluconate 10 mg lozg Take 1 tablet by mouth once daily. MV with Nhw-Mlschwlm-Wzwaeg (CENTRUM SILVER) 0.4-300-250 mg-mcg-mcg tab Take 1 tablet by mouth once daily. B Complex-Folic Acid (B COMPLEX 1, WITH FOLIC ACID,) 0.4 mg tab Take 1 tablet by mouth once daily. omega-3 fatty acids 1,000 mg cap Take 2 capsules by mouth once daily. blood sugar diagnostic (BLOOD GLUCOSE TEST) test strip Test blood sugar(s) 1 times daily. Dx: Type 2 DM - Uncontrolled E11.65 Insulin: No Lancets lancets Test blood sugar(s) 1 times daily. Dx: Type 2 DM - Uncontrolled E11.65 Insulin: No CPAP AutoPAP 5-20 cmH2O, suitable mask, humidity, filters. Lifetime supplies. Dx: G47.33 No current facility-administered medications on file prior to visit. Social History Social History Tobacco Use Smoking status: Never Smokeless tobacco: Never Substance Use Topics Alcohol use: No Drug use: Never Review of Symptoms REVIEW OF SYSTEMS See HPI EXAM: BP 118/74 Pulse 81 Temp 36.9 ?C (98.5 ?F) (Temporal) Resp 18 Wt 97.7 kg (215 lb 6.4 oz) SpO2 97% BMI 35.30 kg/m? General Appearance: Well appearing, a (more content not included)... [facility] 11-24-2024 History of Presen t illness Narrative Chief Complaint Patient presents with: Follow Up: Cough- continues from previous visit Recording using Tallyfy software for draft documentation of the visit was discussed with the patient/authorized lead generation representative; all questions welcomed and answered. Patient/authorized lead generation representative agreed to proceed HPI Jose Fierro is a 59 year old male who presents here today for Above Complaints. Accompanied today by his daughter Irene who is translating. Refusing hem inspector phone today. Cough: - Persistent cough since [facility] visit on November 15. - Initially presented with cough, chest congestion, sore throat, headache, sinus pressure, and nasal congestion. - Diagnosed with wheezing and sinobronchitis; started on albuterol inhaler PRN and doxycycline 100 mg BID for 7 days. - Symptoms have improved slightly, but cough remains. - Productive cough with yellow-green sputum. - Mild wheezing, more pronounced at night. - Mild chest pain and congestion when coughing. - Nasal congestion and sinus pressure have resolved. - Mild sore throat in the morning. - Denies fevers, chills, myalgias, or significant fatigue. - No new anosmia or ageusia. - Diarrhea occurred 3 days ago but has since resolved. - No history of asthma or COPD. - Using albuterol inhaler BID with some relief. - Taking DayQuil and another unspecified OTC medication without significant improvement. - Reports seeing floaters in vision. Past medical history, appointments, medications, allergies reviewed. Previous Medical History PAST MEDICAL HISTORY Diagnosis Date Arthritis of both hands 10/26/2021 mod Arthritis of left knee 09/29/2015 Arthritis of neck 10/26/2021 Mod Cervical radiculopathy 11/01/2018 Elevated hemoglobin A1c 10/14/2015 Family history of rheumatoid arthritis 10/22/2021 father Hemorrhoids History of colonic polyps 01/20/2021 Impingement syndrome of shoulder region 11/01/2018 Mixed hyperlipidemia 05/21/2018 Obesity, Class II, BMI 35-39.9 09/29/2015 ZAHIDA (obstructive sleep apnea) 12/08/2016 AutoPAP 5-20 DME [facility] Plantar fasciitis 07/08/2017 Radius fracture Rosacea Severe anxiety with panic 05/15/2018 Well adult exam 03/23/2022 Last done: 03/23/2022 Previous Surgical History PAST SURGICAL HISTORY Procedure Laterality Date COLONOSCOPY 01/20/2022 repeat in 5 years COLONOSCOPY FLX DX W/COLLJ SPEC WHEN PFRMD 10/27/2015 Colonoscopy EGD W/O BRSH SPEC VARICIES INJ 01/20/2022 Family History FAMILY HISTORY Problem Relation Age of Onset Stroke Mother Coronary Artery Disease Father Colon Cancer Father other (rheumatoid arthritis) Father Hypertension Sister Diabetes Brother from diabetic coma Lipids Brother Patient Allergies ALLERGIES No Known Allergies Current Medications Current Outpatient Medications on File Prior to Visit Medication Sig albuterol HFA (PROVENTIL HFA, VENTOLIN HFA) 90 mcg/actuation inhaler Inhale 2 puffs as instructed every 6 hours as needed for wheezing/shortness of breath. fluticasone (FLONASE ALLERGY RELIEF) 50 mcg/actuation nasal spray Use 1 Belcher in each nostril once daily. sertraline (ZOLOFT) 50 mg tablet Take 1 tablet by mouth once daily. metFORMIN ER (GLUCOPHAGE XR) 500 mg 24 hr tablet Take 1 tablet by mouth daily with breakfast. metroNIDAZOLE (METROGEL) 1 % Topical Gel Apply 1 application to affected area once daily. Location: cheeks and forehead erythromycin base 250 mg tablet Take 1 tablet by mouth once daily. cyclobenzaprine (FLEXERIL) 10 mg tablet Take 1 tablet by mouth three times a day as needed for muscle spasm. (Patient not taking: Reported on 11/15/2024) Zinc Gluconate 10 mg lozg Take 1 tablet by mouth once daily. MV with Oty-Gqviewdp-Skrzaf (CENTRUM SILVER) 0.4-300-250 mg-mcg-mcg tab Take 1 tablet by mouth once daily. B Complex-Folic Acid (B COMPLEX 1, WITH FOLIC ACID,) 0.4 mg tab Take 1 tablet by mouth once daily. omega-3 fatty acids 1,000 mg cap Take 2 capsules by mouth once daily. blood sugar diagnostic (BLOOD GLUCOSE TEST) test strip Test blood sugar(s) 1 times daily. Dx: Type 2 DM - Uncontrolled E11.65 Insulin: No Lancets lancets Test blood sugar(s) 1 times daily. Dx: Type 2 DM - Uncontrolled E11.65 Insulin: No CPAP AutoPAP 5-20 cmH2O, suitable mask, humidity, filters. Lifetime supplies. Dx: G47.33 No current facility-administered medications on file prior to visit. Social History Social History Tobacco Use Smoking status: Never Smokeless tobacco: Never Substance Use Topics Alcohol use: No Drug use: Never Review of Symptoms REVIEW OF SYSTEMS See HPI EXAM: BP 118/74 Pulse 81 Temp 36.9 C (98.5 F) (Temporal) Resp 18 Wt 97.7 kg (215 lb 6.4 oz) SpO2 97% BMI 35.30 kg/m General Appearance: Well appearing, alert, in no acute distress, well-hydrated, well nourished.. Skin: Skin color, texture, turgor normal, no suspicious rashes or lesions. Head: Normocephalic, no masses, lesions, tenderness or abnormalities. Eyes: Anicteric sclera. Pupils are equally round and reactive to light. Extraocular movements are intact. . Ears: External ears normal, canals clear. Nose/Sinuses: Nares normal, septum midline, mucosa normal, no drainage or sinus tenderness. Oropharynx: Lips, mucosa, and tongue normal, teeth and gums normal, oropharynx normal. Neck: Supple, no adenopathy; thyroid symmetric, normal size, no bruits. Lungs: Lungs clear to auscultation. No wheezing, rhonchi, rales.. Heart: RRR without murmur, gallop, or rubs. No ectopy. Health Maintenance List Depression Screening Never done Shingrix Vaccine(1 of 2) due on 12/23/2024 Colorectal Cancer Screening due on 01/20/2027 Diabetes Screening due on 02/17/2027 Lipid Screening due on 02/17/2029 Prostate Cancer Screening Discussion due on 02/17/2029 DTaP,Tdap,Td Vaccine(4 - Td or Tdap) due on 10/08/2032 RSV Vaccine(1 - 1-dose 75+ series) due on 10/24/2038 Influenza Vaccine Completed Hepatitis C Screening Completed HIV Screening Completed Covid-19 Vaccine Completed Pneumococcal Vaccine: 50+ Completed 1. Sinobronchitis (J32.9) 2. Productive cough (R05.8) - Initial presentation on November 15 included cough, chest congestion, sore throat, headache, sinus pressure, and nasal congestion. Diagnosed with wheezing and sinobronchitis; started on albuterol inhaler prn and doxycycline 100 mg BID for 7 days. - Current exam reveals no wheezing or signs of pneumonia; normal air entry, no sinus pressure, and no lymphadenopathy. - Sinus symptoms have resolved; cough is slowly improving but still productive with yellow-green sputum. - Ordered chest X-ray to rule out lingering pneumonia. - Prescribed Tessalon, to be taken up to three times daily as needed for cough. - Advised continued use of albuterol inhaler, two puffs up to every four hours as needed for coughing, wheezing, or shortness of breath. - Patient may continue using Dayquil. - Instructed to monitor for worsening symptoms such as increased cough, thick green sputum, fever, chest pain, or shortness of breath and to report immediately if these occur. - Patient understands and agrees with the treatment plan. Uche Oseguera MD documented in this encounter [facility] 11-15-2024 Note HNO ID: [id number] Author: ANA CRISTINA OROZCO MA Service: ? Author Type: Shipper Receiver Type: Progress Notes Filed: 11/15/2024 20:11 Note Text: 2.5 solution aerosol treatment given per provider's orders. Prior to treatment O2 sat is 94%. Treatment completed. O2 sat is 97%. Tolerated well. Ana Cristina Orozco MA [facility] 11-15-2024 History of Presen t illness Narrative 2.5 solution aerosol treatment given per provider's orders. Prior to treatment O2 sat is 94%. Treatment completed. O2 sat is 97%. Tolerated well. Ana Cristina Orozco MA Subjective HPI Nontoxic-appearing male presents urgent care chief complaint cough chest congestion sore throat headache sinus pressure nasal congestion. Duration of symptoms 5 days. Associated symptoms listed above. Presents today for evaluation. Most prominent symptom today is cough and chest congestion. OTC medications Coricidin. Unknown sick contacts. Denies any chest pain hemoptysis or pleuritic pain. No high fevers. Past medical history prescription medications allergies reviewed .Patient presents with: Chest Congestion: cough, sinus pressure x 5 days PAST MEDICAL HISTORY Diagnosis Date Arthritis of both hands 10/26/2021 mod Arthritis of left knee 09/29/2015 Arthritis of neck 10/26/2021 Mod Cervical radiculopathy 11/01/2018 Elevated hemoglobin A1c 10/14/2015 Family history of rheumatoid arthritis 10/22/2021 father Hemorrhoids History of colonic polyps 01/20/2021 Impingement syndrome of shoulder region 11/01/2018 Mixed hyperlipidemia 05/21/2018 Obesity, Class II, BMI 35-39.9 09/29/2015 ZAHIDA (obstructive sleep apnea) 12/08/2016 AutoPAP 5-20 DME [facility] Plantar fasciitis 07/08/2017 Radius fracture Rosacea Severe anxiety with panic 05/15/2018 Well adult exam 03/23/2022 Last done: 03/23/2022 PAST SURGICAL HISTORY Procedure Laterality Date COLONOSCOPY 01/20/2022 repeat in 5 years COLONOSCOPY FLX DX W/COLLJ SPEC WHEN PFRMD 10/27/2015 Colonoscopy EGD W/O BRSH SPEC VARICIES INJ 01/20/2022 ALLERGIES Patient has no known allergies. MEDICATIONS fluticasone (FLONASE ALLERGY RELIEF) 50 mcg/actuation nasal spray Use 1 Belcher in each nostril once daily. sertraline (ZOLOFT) 50 mg tablet Take 1 tablet by mouth once daily. metFORMIN ER (GLUCOPHAGE XR) 500 mg 24 hr tablet Take 1 tablet by mouth daily with breakfast. metroNIDAZOLE (METROGEL) 1 % Topical Gel Apply 1 application to affected area once daily. Location: cheeks and forehead erythromycin base 250 mg tablet Take 1 tablet by mouth once daily. Zinc Gluconate 10 mg lozg Take 1 tablet by mouth once daily. MV with Wjb-Dbszfmml-Ngytti (CENTRUM SILVER) 0.4-300-250 mg-mcg-mcg tab Take 1 tablet by mouth once daily. B Complex-Folic Acid (B COMPLEX 1, WITH FOLIC ACID,) 0.4 mg tab Take 1 tablet by mouth once daily. omega-3 fatty acids 1,000 mg cap Take 2 capsules by mouth once daily. blood sugar diagnostic (BLOOD GLUCOSE TEST) test strip Test blood sugar(s) 1 times daily. Dx: Type 2 DM - Uncontrolled E11.65 Insulin: No Lancets lancets Test blood sugar(s) 1 times daily. Dx: Type 2 DM - Uncontrolled E11.65 Insulin: No CPAP AutoPAP 5-20 cmH2O, suitable mask, humidity, filters. Lifetime supplies. Dx: G47.33 cyclobenzaprine (FLEXERIL) 10 mg tablet Take 1 tablet by mouth three times a day as needed for muscle spasm. (Patient not taking: Reported on 11/15/2024) FAMILY HISTORY Problem Relation Age of Onset Stroke Mother Coronary Artery Disease Father Colon Cancer Father other (rheumatoid arthritis) Father Hypertension Sister Diabetes Brother from diabetic coma Lipids Brother Social History Tobacco Use Smoking status: Never Smokeless tobacco: Never Substance Use Topics Alcohol use: No Drug use: Never BP 118/72 Pulse 62 Temp 37.6 C (99.6 F) Resp 18 Wt 99.8 kg (220 lb 0.3 oz) SpO2 94% BMI 36.06 kg/m Review of Systems Constitutional: Positive for fever and malaise/fatigue. Negative for chills. HENT: Positive for congestion and sore throat. Negative for ear discharge, ear pain and sinus pain. Eyes: Negative for blurred vision, pain, discharge and redness. Respiratory: Positive for cough. Negative for hemoptysis, sputum production, shortness of breath, wheezing and stridor. Cardiovascular: Negative for chest pain. Gastrointestinal: Negative for abdominal pain, diarrhea, nausea and vomiting. Musculoskeletal: Positive for myalgias. Skin: Negative for itching and rash. Neurological: Positive for headaches. Negative for dizziness. Objective Physical Exam Constitutional: General: He is not in acute distress. Appearance: He is not diaphoretic. HENT: Head: Normocephalic. Jaw: No trismus, tenderness, swelling or pain on movement. Nose: Congestion present. Right Sinus: Maxillary sinus tenderness present. Left Sinus: Maxillary sinus tenderness present. Mouth/Throat: Mouth: Mucous membranes are moist. Pharynx: Oropharynx is clear. Uvula midline. No pharyngeal swelling, oropharyngeal exudate, posterior oropharyngeal erythema or uvula swelling. Eyes: Conjunctiva/sclera: Conjunctivae normal. Pupils: Pupils are equal, round, and reactive to light. Cardiovascular: Rate and Rhythm: Normal rate and regular rhythm. Heart sounds: Normal heart sounds. Pulmonary: Effort: Pulmonary effort is normal. No tachypnea, accessory muscle usage or respiratory distress. Breath sounds: No stridor. Wheezing and rhonchi present. No rales. Abdominal: General: There is no distension. Palpations: Abdomen is soft. Tenderness: There is no abdominal tenderness. There is no guarding or rebound. Musculoskeletal: Cervical back: Normal range of motion and neck supple. No edema, erythema, rigidity or tenderness. No pain with movement. Normal range of motion. Lymphadenopathy: Cervical: No cervical adenopathy. Skin: General: Skin is warm and dry. Neurological: Mental Status: He is alert and oriented to person, place, and time. ASSESSMENT/PLAN: 1. Wheezing - ICD9: 786.07, ICD10: R06.2 (primary diagnosis) - IPRATROPIUM 0.5 MG-ALBUTEROL 3 MG (2.5 MG BASE)/3 ML NEBULIZATION SOLN 2. Sinobronchitis - ICD9: 473.9, 490, ICD10: J32.9, J40 Diagnosis sinobronchitis. Breath sounds did improve after DuoNeb treatment. Did notice some coarse breath sounds left lower lung. Treated sinobronchitis. Placed on doxycycline. Patient was educated on supportive therapies. Patient will follow up with primary care provider 2 to 3 days reevaluation patient was instructed to immediately proceed to emergency room for any new, worsening, or symptoms lasting longer than anticipated. The patient's clinical presentation is otherwise unremarkable at this time. Based on exam and clinical finding, the patient is stable for discharge. Plan of care was discussed with patient. Patient verbalizes understanding and agrees to plan of care. This note was generated using JumpSeat software. It may contain errors in wording, punctuation, or spelling. Marvel Knight APRN.[place] documented in this encounter [facility] 11-15-2024 Note HNO ID: [id number] Author: MARVEL KNIGHT APRN.[place] Service: ? Author Type: Nurse Practitioner Type: Progress Notes Filed: 11/15/2024 20:11 Note Text: Subjective HPI Nontoxic-appearing male presents urgent care chief complaint cough chest congestion sore throat headache sinus pressure nasal congestion. Duration of symptoms 5 days. Associated symptoms listed above. Presents today for evaluation. Most prominent symptom today is cough and chest congestion. OTC medications Coricidin. Unknown sick contacts. Denies any chest pain hemoptysis or pleuritic pain. No high fevers. Past medical history prescription medications allergies reviewed .Patient presents with: Chest Congestion: cough, sinus pressure x 5 days PAST MEDICAL HISTORY Diagnosis Date Arthritis of both hands 10/26/2021 mod Arthritis of left knee 09/29/2015 Arthritis of neck 10/26/2021 Mod Cervical radiculopathy 11/01/2018 Elevated hemoglobin A1c 10/14/2015 Family history of rheumatoid arthritis 10/22/2021 father Hemorrhoids History of colonic polyps 01/20/2021 Impingement syndrome of shoulder region 11/01/2018 Mixed hyperlipidemia 05/21/2018 Obesity, Class II, BMI 35-39.9 09/29/2015 ZAHIDA (obstructive sleep apnea) 12/08/2016 AutoPAP 5-20 DME [facility] Plantar fasciitis 07/08/2017 Radius fracture Rosacea Severe anxiety with panic 05/15/2018 Well adult exam 03/23/2022 Last done: 03/23/2022 PAST SURGICAL HISTORY Procedure Laterality Date COLONOSCOPY 01/20/2022 repeat in 5 years COLONOSCOPY FLX DX W/COLLJ SPEC WHEN PFRMD 10/27/2015 Colonoscopy EGD W/O [facility] SPEC VARICIES INJ 01/20/2022 ALLERGIES Patient has no known allergies. MEDICATIONS fluticasone (FLONASE ALLERGY RELIEF) 50 mcg/actuation nasal spray Use 1 Belcher in each nostril once daily. sertraline (ZOLOFT) 50 mg tablet Take 1 tablet by mouth once daily. metFORMIN ER (GLUCOPHAGE XR) 500 mg 24 hr tablet Take 1 tablet by mouth daily with breakfast. metroNIDAZOLE (METROGEL) 1 % Topical Gel Apply 1 application to affected area once daily. Location: cheeks and forehead erythromycin base 250 mg tablet Take 1 tablet by mouth once daily. Zinc Gluconate 10 mg lozg Take 1 tablet by mouth once daily. MV with Nug-Tlusihdl-Igbdxv (CENTRUM SILVER) 0.4-300-250 mg-mcg-mcg tab Take 1 tablet by mouth once daily. B Complex-Folic Acid (B COMPLEX 1, WITH FOLIC ACID,) 0.4 mg tab Take 1 tablet by mouth once daily. omega-3 fatty acids 1,000 mg cap Take 2 capsules by mouth once daily. blood sugar diagnostic (BLOOD GLUCOSE TEST) test strip Test blood sugar(s) 1 times daily. Dx: Type 2 DM - Uncontrolled E11.65 Insulin: No Lancets lancets Test blood sugar(s) 1 times daily. Dx: Type 2 DM - Uncontrolled E11.65 Insulin: No CPAP AutoPAP 5-20 cmH2O, suitable mask, humidity, filters. Lifetime supplies. Dx: G47.33 cyclobenzaprine (FLEXERIL) 10 mg tablet Take 1 tablet by mouth three times a day as needed for muscle spasm. (Patient not taking: Reported on 11/15/2024) FAMILY HISTORY Problem Relation Age of Onset Stroke Mother Coronary Artery Disease Father Colon Cancer Father other (rheumatoid arthritis) Father Hypertension Sister Diabetes Brother from diabetic coma Lipids Brother Social History Tobacco Use Smoking status: Never Smokeless tobacco: Never Substance Use Topics Alcohol use: No Drug use: Never BP 118/72 Pulse 62 Temp 37.6 ?C (99.6 ?F) Resp 18 Wt 99.8 kg (220 lb 0.3 oz) SpO2 94% BMI 36.06 kg/m? Review of Systems Constitutional: Positive for fever and malaise/fatigue. Negative for chills. HENT: Positive for congestion and sore throat. Negative for ear discharge, ear pain and sinus pain. Eyes: Negative for blurred vision, pain, discharge and redness. Respiratory: Positive for cough. Negative for hemoptysis, sputum production, shortness of breath, wheezing and stridor. Cardiovascular: Negative for chest pain. Gastrointestinal: Negative for abdominal pain, diarrhea, nausea and vomiting. Musculoskeletal: Positive for myalgias. Skin: Negative for itching and rash. Neurological: Positive for headaches. Negative for dizziness. Objective Physical Exam Constitutional: General: He is not in acute distress. Appearance: He is not diaphoretic. HENT: Head: Normocephalic. Jaw: No trismus, tenderness, swelling or pain on movement. Nose: Congestion present. Right Sinus: Maxillary sinus tenderness present. Left Sinus: Maxillary sinus tenderness present. Mouth/Throat: Mouth: Mucous membranes are moist. Pharynx: Oropharynx is clear. Uvula midline. No pharyngeal swelling, oropharyngeal exudate, posterior oropharyngeal erythema or uvula swelling. Eyes: Conjunctiva/sclera: Conjunctivae normal. Pupils: Pupils are equal, round, and reactive to light. Cardiovascular: Rate and Rhythm: Normal rate and regular rhythm. Heart sounds: Normal heart sounds. Pulmonary: Effort: Pulmonary effort is (more content not included)... [facility] 10-04-2024 Telephone encounter Note Patients daughter Irene informed orders placed. Nelia Denney MA [facility] 10-04-2024 Miscellaneous Notes Patients daughter Irene informed orders placed. Nelia Denney MA ordered Pts daughter called in and was asking if the Pt ever had the MMR vaccine. I told her I didn't see it in his immunization record. She states he doesn't remember and his mother is no longer alive. I told her the provider could put in titers to check and see if the Pt ever had the vaccine. She was asking if they would put this in for the Pt. 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 Please call and advise. Rhianna Arce RN documented in this encounter [facility] 10-04-2024 Telephone encounter Note ordered [facility] 10-04-2024 Telephone encounter Note Pts daughter called in and was asking if the Pt ever had the MMR vaccine. I told her I didn't see it in his immunization record. She states he doesn't remember and his mother is no longer alive. I told her the provider could put in titers to check and see if the Pt ever had the vaccine. She was asking if they would put this in for the Pt. 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 Please call and advise. Rhianna Arce RN [facility] 10-02-2024 Note HNO ID: [id number] Author: MARVEL KNIGHT APRN.CLINICAL PHLEBOTOMIST Service: ? Author Type: Nurse Practitioner Type: Progress Notes Filed: 10/02/2024 07:46 Note Text: Subjective HPI Nontoxic-appearing male presents to urgent care with chief complaint of upper respiratory tract like infection. Duration of symptoms 2 days. Associated symptoms sore throat, nasal congestion, nasal discharge and nonproductive cough. Patient denies the use of any ozfn-cir-kxwfirm medications or home remedies for symptom management. Patient states recent sick contacts with similar signs and symptoms. Patient denies any productive cough, fever, chest pain, shortness of breath, pleuritic pain, rash, abdominal pain, nausea, vomiting or change in bowel or bladder habit. Past medical history prescription medications allergies reviewed. .Patient presents with: Sinus Problem: sinus pressure, drainage, cough x 2 days PAST MEDICAL HISTORY Diagnosis Date Arthritis of both hands 10/26/2021 mod Arthritis of left knee 09/29/2015 Arthritis of neck 10/26/2021 Mod Cervical radiculopathy 11/01/2018 Elevated hemoglobin A1c 10/14/2015 Family history of rheumatoid arthritis 10/22/2021 father Hemorrhoids History of colonic polyps 01/20/2021 Impingement syndrome of shoulder region 11/01/2018 Mixed hyperlipidemia 05/21/2018 Obesity, Class II, BMI 35-39.9 09/29/2015 ZAHIDA (obstructive sleep apnea) 12/08/2016 AutoPAP 5-20 DME [facility] Plantar fasciitis 07/08/2017 Radius fracture Rosacea Severe anxiety with panic 05/15/2018 Well adult exam 03/23/2022 Last done: 03/23/2022 PAST SURGICAL HISTORY Procedure Laterality Date COLONOSCOPY 01/20/2022 repeat in 5 years COLONOSCOPY FLX DX W/COLLJ SPEC WHEN PFRMD 10/27/2015 Colonoscopy EGD W/O BRSH SPEC VARICIES INJ 01/20/2022 ALLERGIES Patient has no known allergies. MEDICATIONS benzonatate (TESSALON PERLE) 100 mg capsule Take 1 capsule by mouth three times a day as needed for cough for up to 7 days. fluticasone (FLONASE ALLERGY RELIEF) 50 mcg/actuation nasal spray Use 1 Belcher in each nostril once daily. loratadine (CLARITIN) 10 mg tablet Take 1 tablet by mouth once daily for 7 days. sertraline (ZOLOFT) 50 mg tablet Take 1 tablet by mouth once daily. metFORMIN ER (GLUCOPHAGE XR) 500 mg 24 hr tablet Take 1 tablet by mouth daily with breakfast. metroNIDAZOLE (METROGEL) 1 % Topical Gel Apply 1 application to affected area once daily. Location: cheeks and forehead erythromycin base 250 mg tablet Take 1 tablet by mouth once daily. cyclobenzaprine (FLEXERIL) 10 mg tablet Take 1 tablet by mouth three times a day as needed for muscle spasm. (Patient not taking: Reported on 10/02/2024) Zinc Gluconate 10 mg lozg Take 1 tablet by mouth once daily. MV with Bca-Ywrezsso-Witceh (CENTRUM SILVER) 0.4-300-250 mg-mcg-mcg tab Take 1 tablet by mouth once daily. B Complex-Folic Acid (B COMPLEX 1, WITH FOLIC ACID,) 0.4 mg tab Take 1 tablet by mouth once daily. omega-3 fatty acids 1,000 mg cap Take 2 capsules by mouth once daily. blood sugar diagnostic (BLOOD GLUCOSE TEST) test strip Test blood sugar(s) 1 times daily. Dx: Type 2 DM - Uncontrolled E11.65 Insulin: No Lancets lancets Test blood sugar(s) 1 times daily. Dx: Type 2 DM - Uncontrolled E11.65 Insulin: No CPAP AutoPAP 5-20 cmH2O, suitable mask, humidity, filters. Lifetime supplies. Dx: G47.33 FAMILY HISTORY Problem Relation Age of Onset Stroke Mother Coronary Artery Disease Father Colon Cancer Father other (rheumatoid arthritis) Father Hypertension Sister Diabetes Brother from diabetic coma Lipids Brother Social History Tobacco Use Smoking status: Never Smokeless tobacco: Never Substance Use Topics Alcohol use: No Drug use: Never BP 122/72 Pulse 88 Temp 36.9 ?C (98.4 ?F) Resp 18 Wt 103.8 kg (228 lb 13.4 oz) SpO2 97% BMI 37.50 kg/m? Review of Systems Constitutional: Negative for chills, fever and malaise/fatigue. HENT: Positive for congestion and sore throat. Negative for ear discharge, ear pain and sinus pain. Eyes: Negative for blurred vision, pain, discharge and redness. Respiratory: Positive for cough. Negative for hemoptysis, sputum production, shortness of breath, wheezing and stridor. Cardiovascular: Negative for chest pain. Gastrointestinal: Negative for abdominal pain, diarrhea, nausea and vomiting. Musculoskeletal: Positive for myalgias. Skin: Negative for itching and rash. Neurological: Positive for headaches. Negative for dizziness. Objective Physical Exam Constitutional: General: He is not in acute distress. Appearance: He is not diaphoretic. HENT: Head: Normocephalic. Jaw: No trismus, tenderness, swelling or pain on movement. Nose: Congestion present. Mouth/Throat: Mouth: Mucous membranes are moist. Pharynx: Oropharynx is clear. Uvula midline. No pharyngeal swelling, oropharyngeal exudate, posterior oropharyngeal erythema o (more content not included)... [facility] 10-02-2024 History of Presen t illness Narrative Subjective HPI Nontoxic-appearing male presents to urgent care with chief complaint of upper respiratory tract like infection. Duration of symptoms 2 days. Associated symptoms sore throat, nasal congestion, nasal discharge and nonproductive cough. Patient denies the use of any [id number] medications or home remedies for symptom management. Patient states recent sick contacts with similar signs and symptoms. Patient denies any productive cough, fever, chest pain, shortness of breath, pleuritic pain, rash, abdominal pain, nausea, vomiting or change in bowel or bladder habit. Past medical history prescription medications allergies reviewed. .Patient presents with: Sinus Problem: sinus pressure, drainage, cough x 2 days PAST MEDICAL HISTORY Diagnosis Date Arthritis of both hands 10/26/2021 mod Arthritis of left knee 09/29/2015 Arthritis of neck 10/26/2021 Mod Cervical radiculopathy 11/01/2018 Elevated hemoglobin A1c 10/14/2015 Family history of rheumatoid arthritis 10/22/2021 father Hemorrhoids History of colonic polyps 01/20/2021 Impingement syndrome of shoulder region 11/01/2018 Mixed hyperlipidemia 05/21/2018 Obesity, Class II, BMI 35-39.9 09/29/2015 ZAHIDA (obstructive sleep apnea) 12/08/2016 AutoPAP 5-20 [facility] Plantar fasciitis 07/08/2017 Radius fracture Rosacea Severe anxiety with panic 05/15/2018 Well adult exam 03/23/2022 Last done: 03/23/2022 PAST SURGICAL HISTORY Procedure Laterality Date COLONOSCOPY 01/20/2022 repeat in 5 years COLONOSCOPY FLX DX W/COLLJ SPEC WHEN PFRMD 10/27/2015 Colonoscopy EGD W/O [facility] SPEC VARICIES INJ 01/20/2022 ALLERGIES Patient has no known allergies. MEDICATIONS benzonatate (TESSALON PERLE) 100 mg capsule Take 1 capsule by mouth three times a day as needed for cough for up to 7 days. fluticasone (FLONASE ALLERGY RELIEF) 50 mcg/actuation nasal spray Use 1 Belcher in each nostril once daily. loratadine (CLARITIN) 10 mg tablet Take 1 tablet by mouth once daily for 7 days. sertraline (ZOLOFT) 50 mg tablet Take 1 tablet by mouth once daily. metFORMIN ER (GLUCOPHAGE XR) 500 mg 24 hr tablet Take 1 tablet by mouth daily with breakfast. metroNIDAZOLE (METROGEL) 1 % Topical Gel Apply 1 application to affected area once daily. Location: cheeks and forehead erythromycin base 250 mg tablet Take 1 tablet by mouth once daily. cyclobenzaprine (FLEXERIL) 10 mg tablet Take 1 tablet by mouth three times a day as needed for muscle spasm. (Patient not taking: Reported on 10/02/2024) Zinc Gluconate 10 mg lozg Take 1 tablet by mouth once daily. MV with Wkd-Zuoqasrb-Fymequ (CENTRUM SILVER) 0.4-300-250 mg-mcg-mcg tab Take 1 tablet by mouth once daily. B Complex-Folic Acid (B COMPLEX 1, WITH FOLIC ACID,) 0.4 mg tab Take 1 tablet by mouth once daily. omega-3 fatty acids 1,000 mg cap Take 2 capsules by mouth once daily. blood sugar diagnostic (BLOOD GLUCOSE TEST) test strip Test blood sugar(s) 1 times daily. Dx: Type 2 DM - Uncontrolled E11.65 Insulin: No Lancets lancets Test blood sugar(s) 1 times daily. Dx: Type 2 DM - Uncontrolled E11.65 Insulin: No CPAP AutoPAP 5-20 cmH2O, suitable mask, humidity, filters. Lifetime supplies. Dx: G47.33 FAMILY HISTORY Problem Relation Age of Onset Stroke Mother Coronary Artery Disease Father Colon Cancer Father other (rheumatoid arthritis) Father Hypertension Sister Diabetes Brother from diabetic coma Lipids Brother Social History Tobacco Use Smoking status: Never Smokeless tobacco: Never Substance Use Topics Alcohol use: No Drug use: Never BP 122/72 Pulse 88 Temp 36.9 C (98.4 F) Resp 18 Wt 103.8 kg (228 lb 13.4 oz) SpO2 97% BMI 37.50 kg/m Review of Systems Constitutional: Negative for chills, fever and malaise/fatigue. HENT: Positive for congestion and sore throat. Negative for ear discharge, ear pain and sinus pain. Eyes: Negative for blurred vision, pain, discharge and redness. Respiratory: Positive for cough. Negative for hemoptysis, sputum production, shortness of breath, wheezing and stridor. Cardiovascular: Negative for chest pain. Gastrointestinal: Negative for abdominal pain, diarrhea, nausea and vomiting. Musculoskeletal: Positive for myalgias. Skin: Negative for itching and rash. Neurological: Positive for headaches. Negative for dizziness. Objective Physical Exam Constitutional: General: He is not in acute distress. Appearance: He is not diaphoretic. HENT: Head: Normocephalic. Jaw: No trismus, tenderness, swelling or pain on movement. Nose: Congestion present. Mouth/Throat: Mouth: Mucous membranes are moist. Pharynx: Oropharynx is clear. Uvula midline. No pharyngeal swelling, oropharyngeal exudate, posterior oropharyngeal erythema or uvula swelling. Eyes: Conjunctiva/sclera: Conjunctivae normal. Pupils: Pupils are equal, round, and reactive to light. Cardiovascular: Rate and Rhythm: Normal rate and regular rhythm. Heart sounds: Normal heart sounds. Pulmonary: Effort: Pulmonary effort is normal. No tachypnea, accessory muscle usage or respiratory distress. Breath sounds: Normal breath sounds. No stridor. No wheezing, rhonchi or rales. Abdominal: General: There is no distension. Palpations: Abdomen is soft. Tenderness: There is no abdominal tenderness. There is no guarding or rebound. Musculoskeletal: Cervical back: Normal range of motion and neck supple. No edema, erythema, rigidity or tenderness. No pain with movement. Normal range of motion. Lymphadenopathy: Cervical: No cervical adenopathy. Skin: General: Skin is warm and dry. Neurological: Mental Status: He is alert and oriented to person, place, and time. ASSESSMENT/PLAN: 1. Viral illness - ICD9: 079.99, ICD10: B34.9 - Discussed viral etiology and rationale for treatment. - Symptomatic treatment with prn analgesia - Supportive care with fluids and rest Day 2 of symptoms. Sick contact similar signs symptoms. No evidence of bacterial infection noted on today's assessment. Patient was educated on supportive therapies. Patient will follow up with primary care provider as needed. Patient was instructed to immediately proceed to emergency room for any new, worsening, or symptoms lasting longer than anticipated. The patient's clinical presentation is otherwise unremarkable at this time. Based on exam and clinical finding, the patient is stable for discharge. Plan of care was discussed with patient. Patient verbalizes understanding and agrees to plan of care. This note was generated using JumpSeat software. It may contain errors in wording, punctuation, or spelling. Marvel Knight APRN.[place] documented in this encounter [facility] 07-05-2024 History of Presen t illness Narrative Radiology Service Progress Note PATIENT NAME: Jose Fierro DATE OF SERVICE: July 05, 2024 TIME: 10:30 AM PATIENT IDENTITY VERIFICATION COMPLETED USING TWO (2) IDENTIFIERS: Name and Date of confirmed by patient verbally. FALL SCREENING: Has the patient had 2 falls in the last year or 1 fall with injury or currently using an Ambulatory Assistive Device (Walker, Cane, Wheelchair, Crutches, etc.)? No PATIENT GENDER DATA: Male PATIENT RELEVANT IMPLANT DATA REVIEWED: Not Applicable PATIENT PRESENTS WITH AN IMPLANTABLE OR ATTACHED TORQUE TESTER: No RADIOLOGY DEPARTMENT: General X-ray: Exam(s) Completed: Lower Extremity X-Ray(s): Ankle, Right and Foot, Right PERIPHERAL IV DATA: Not applicable SIGNED BY: RT Raymond(Neyda) July 05, 2024 10:30 AM documented in this encounter [facility] 07-05-2024 Note HNO ID: [id number] Author: KATE STACK RT(R) Service: ? Author Type: Technologist Type: Progress Notes Filed: 07/05/2024 10:41 Note Text: Radiology Service Progress Note PATIENT NAME: Jose Fierro DATE OF SERVICE: July 05, 2024 TIME: 10:30 AM PATIENT IDENTITY VERIFICATION COMPLETED USING TWO (2) IDENTIFIERS: Name and Date of confirmed by patient verbally. FALL SCREENING: Has the patient had 2 falls in the last year or 1 fall with injury or currently using an Ambulatory Assistive Device (Walker, Cane, Wheelchair, Crutches, etc.)? No PATIENT GENDER DATA: Male PATIENT RELEVANT IMPLANT DATA REVIEWED: Not Applicable PATIENT PRESENTS WITH AN IMPLANTABLE OR ATTACHED TORQUE TESTER: No RADIOLOGY DEPARTMENT: General X-ray: Exam(s) Completed: Lower Extremity X-Ray(s): Ankle, Right and Foot, Right PERIPHERAL IV DATA: Not applicable SIGNED BY: RT Raymond(R) July 05, 2024 10:30 AM [facility] 07-05-2024 Note HNO ID: [id number] Author: MARVEL KNIGHT APRN.CNP Service: ? Author Type: Nurse Practitioner Type: Progress Notes Filed: 07/05/2024 11:12 Note Text: Subjective HPI Nontoxic-appearing male presents urgent care accompanied by family member. Chief complaint right ankle injury. Duration of symptoms 2 days. Associated symptoms right ankle pain/foot swelling. Patient states inverted right ankle 2 days ago. States was walking in the grass when he rolled his ankle. Denies any other injuries. No head neck or back pain. No LOC. No surgeries or fractures to the foot or ankle in the past. Numbness and tingling not present. Pain is activated by bearing weight improved by rest. No weakness. Past medical history prescription medications allergies reviewed. .Patient presents with: Pain (foot): right x 2 days, twisted PAST MEDICAL HISTORY Diagnosis Date Arthritis of both hands 10/26/2021 mod Arthritis of left knee 09/29/2015 Arthritis of neck 10/26/2021 Mod Cervical radiculopathy 11/01/2018 Elevated hemoglobin A1c 10/14/2015 Family history of rheumatoid arthritis 10/22/2021 father Hemorrhoids History of colonic polyps 01/20/2021 Impingement syndrome of shoulder region 11/01/2018 Mixed hyperlipidemia 05/21/2018 Obesity, Class II, BMI 35-39.9 09/29/2015 ZAHIDA (obstructive sleep apnea) 12/08/2016 AutoPAP 5-20 [facility] Plantar fasciitis 07/08/2017 Radius fracture Rosacea Severe anxiety with panic 05/15/2018 Well adult exam 03/23/2022 Last done: 03/23/2022 PAST SURGICAL HISTORY Procedure Laterality Date COLONOSCOPY 01/20/2022 repeat in 5 years COLONOSCOPY FLX DX W/COLLJ SPEC WHEN PFRMD 10/27/2015 Colonoscopy EGD W/O [facility] SPEC VARICIES INJ 01/20/2022 ALLERGIES Patient has no known allergies. MEDICATIONS sertraline (ZOLOFT) 50 mg tablet Take 1 tablet by mouth once daily. metFORMIN ER (GLUCOPHAGE XR) 500 mg 24 hr tablet Take 1 tablet by mouth daily with breakfast. metroNIDAZOLE (METROGEL) 1 % Topical Gel Apply 1 application to affected area once daily. Location: cheeks and forehead erythromycin base 250 mg tablet Take 1 tablet by mouth once daily. cyclobenzaprine (FLEXERIL) 10 mg tablet Take 1 tablet by mouth three times a day as needed for muscle spasm. Zinc Gluconate 10 mg lozg Take 1 tablet by mouth once daily. MV with Nvx-Nkntbfuw-Fbtatl (CENTRUM SILVER) 0.4-300-250 mg-mcg-mcg tab Take 1 tablet by mouth once daily. B Complex-Folic Acid (B COMPLEX 1, WITH FOLIC ACID,) 0.4 mg tab Take 1 tablet by mouth once daily. omega-3 fatty acids 1,000 mg cap Take 2 capsules by mouth once daily. blood sugar diagnostic (BLOOD GLUCOSE TEST) test strip Test blood sugar(s) 1 times daily. Dx: Type 2 DM - Uncontrolled E11.65 Insulin: No Lancets lancets Test blood sugar(s) 1 times daily. Dx: Type 2 DM - Uncontrolled E11.65 Insulin: No CPAP AutoPAP 5-20 cmH2O, suitable mask, humidity, filters. Lifetime supplies. Dx: G47.33 FAMILY HISTORY Problem Relation Age of Onset Stroke Mother Coronary Artery Disease Father Colon Cancer Father other (rheumatoid arthritis) Father Hypertension Sister Diabetes Brother from diabetic coma Lipids Brother Social History Tobacco Use Smoking status: Never Smokeless tobacco: Never Substance Use Topics Alcohol use: No Drug use: Never BP 142/70 Pulse 84 Temp 36.7 ?C (98.1 ?F) Resp 16 Wt 103.6 kg (228 lb 6.3 oz) SpO2 96% BMI 37.43 kg/m? Review of Systems Constitutional: Negative for chills, fever and malaise/fatigue. Musculoskeletal: Positive for falls and joint pain. Negative for back pain, myalgias and neck pain. Neurological: Negative for dizziness, loss of consciousness, weakness and headaches. Objective Physical Exam Constitutional: General: He is not in acute distress. Appearance: He is not toxic-appearing. HENT: Head: Normocephalic. Nose: Nose normal. Eyes: Pupils: Pupils are equal, round, and reactive to light. Cardiovascular: Rate and Rhythm: Normal rate. Pulmonary: Effort: Pulmonary effort is normal. No respiratory distress. Musculoskeletal: Cervical back: Normal range of motion. Right lower leg: Normal. Right ankle: Swelling present. No deformity, ecchymosis or lacerations. Tenderness present over the lateral malleolus. Normal range of motion. Right Achilles Tendon: No tenderness. Right foot: Normal range of motion and normal capillary refill. Swelling present. No deformity, tenderness or bony tenderness. Normal pulse. Comments: Neurovascular intact. Full range of motion. No breaks in skin. No weaknesses. Skin: General: Skin is warm and dry. Neurological: General: No focal deficit present. Mental Status: He is alert. ASSESSMENT/PLAN: 1. Foot pain, right - ICD9: 729.5, ICD10: M79.671 (primary diagnosis) - XR FOOT GENERAL 3V AP/LAT/OBL RIGHT 2. Acute right ankle pain - ICD9: 719.47, 338.19, ICD10: M25.571 - XR ANKLE GENERAL 3V AP/LA (more content not included)... [facility] 07-05-2024 History of Presen t illness Narrative Subjective HPI Nontoxic-appearing male presents urgent care accompanied by family member. Chief complaint right ankle injury. Duration of symptoms 2 days. Associated symptoms right ankle pain/foot swelling. Patient states inverted right ankle 2 days ago. States was walking in the grass when he rolled his ankle. Denies any other injuries. No head neck or back pain. No LOC. No surgeries or fractures to the foot or ankle in the past. Numbness and tingling not present. Pain is activated by bearing weight improved by rest. No weakness. Past medical history prescription medications allergies reviewed. .Patient presents with: Pain (foot): right x 2 days, twisted PAST MEDICAL HISTORY Diagnosis Date Arthritis of both hands 10/26/2021 mod Arthritis of left knee 09/29/2015 Arthritis of neck 10/26/2021 Mod Cervical radiculopathy 11/01/2018 Elevated hemoglobin A1c 10/14/2015 Family history of rheumatoid arthritis 10/22/2021 father Hemorrhoids History of colonic polyps 01/20/2021 Impingement syndrome of shoulder region 11/01/2018 Mixed hyperlipidemia 05/21/2018 Obesity, Class II, BMI 35-39.9 09/29/2015 ZAHIDA (obstructive sleep apnea) 12/08/2016 AutoPAP 5-20 [facility] Plantar fasciitis 07/08/2017 Radius fracture Rosacea Severe anxiety with panic 05/15/2018 Well adult exam 03/23/2022 Last done: 03/23/2022 PAST SURGICAL HISTORY Procedure Laterality Date COLONOSCOPY 01/20/2022 repeat in 5 years COLONOSCOPY FLX DX W/COLLJ SPEC WHEN PFRMD 10/27/2015 Colonoscopy EGD W/O [facility] SPEC VARICIES INJ 01/20/2022 ALLERGIES Patient has no known allergies. MEDICATIONS sertraline (ZOLOFT) 50 mg tablet Take 1 tablet by mouth once daily. metFORMIN ER (GLUCOPHAGE XR) 500 mg 24 hr tablet Take 1 tablet by mouth daily with breakfast. metroNIDAZOLE (METROGEL) 1 % Topical Gel Apply 1 application to affected area once daily. Location: cheeks and forehead erythromycin base 250 mg tablet Take 1 tablet by mouth once daily. cyclobenzaprine (FLEXERIL) 10 mg tablet Take 1 tablet by mouth three times a day as needed for muscle spasm. Zinc Gluconate 10 mg lozg Take 1 tablet by mouth once daily. MV with Nsj-Xnahjhyc-Saoheq (CENTRUM SILVER) 0.4-300-250 mg-mcg-mcg tab Take 1 tablet by mouth once daily. B Complex-Folic Acid (B COMPLEX 1, WITH FOLIC ACID,) 0.4 mg tab Take 1 tablet by mouth once daily. omega-3 fatty acids 1,000 mg cap Take 2 capsules by mouth once daily. blood sugar diagnostic (BLOOD GLUCOSE TEST) test strip Test blood sugar(s) 1 times daily. Dx: Type 2 DM - Uncontrolled E11.65 Insulin: No Lancets lancets Test blood sugar(s) 1 times daily. Dx: Type 2 DM - Uncontrolled E11.65 Insulin: No CPAP AutoPAP 5-20 cmH2O, suitable mask, humidity, filters. Lifetime supplies. Dx: G47.33 FAMILY HISTORY Problem Relation Age of Onset Stroke Mother Coronary Artery Disease Father Colon Cancer Father other (rheumatoid arthritis) Father Hypertension Sister Diabetes Brother from diabetic coma Lipids Brother Social History Tobacco Use Smoking status: Never Smokeless tobacco: Never Substance Use Topics Alcohol use: No Drug use: Never BP 142/70 Pulse 84 Temp 36.7 C (98.1 F) Resp 16 Wt 103.6 kg (228 lb 6.3 oz) SpO2 96% BMI 37.43 kg/m Review of Systems Constitutional: Negative for chills, fever and malaise/fatigue. Musculoskeletal: Positive for falls and joint pain. Negative for back pain, myalgias and neck pain. Neurological: Negative for dizziness, loss of consciousness, weakness and headaches. Objective Physical Exam Constitutional: General: He is not in acute distress. Appearance: He is not toxic-appearing. HENT: Head: Normocephalic. Nose: Nose normal. Eyes: Pupils: Pupils are equal, round, and reactive to light. Cardiovascular: Rate and Rhythm: Normal rate. Pulmonary: Effort: Pulmonary effort is normal. No respiratory distress. Musculoskeletal: Cervical back: Normal range of motion. Right lower leg: Normal. Right ankle: Swelling present. No deformity, ecchymosis or lacerations. Tenderness present over the lateral malleolus. Normal range of motion. Right Achilles Tendon: No tenderness. Right foot: Normal range of motion and normal capillary refill. Swelling present. No deformity, tenderness or bony tenderness. Normal pulse. Comments: Neurovascular intact. Full range of motion. No breaks in skin. No weaknesses. Skin: General: Skin is warm and dry. Neurological: General: No focal deficit present. Mental Status: He is alert. ASSESSMENT/PLAN: 1. Foot pain, right - ICD9: 729.5, ICD10: M79.671 (primary diagnosis) - XR FOOT GENERAL 3V AP/LAT/OBL RIGHT 2. Acute right ankle pain - ICD9: 719.47, 338.19, ICD10: M25.571 - XR ANKLE GENERAL 3V AP/LAT/OBL RIGHT IMPRESSION: Age indeterminate fifth digit fracture. Soft tissue swelling as described above. No acute findings noted on x-ray. Treat as ankle sprain. Patient was educated on supportive therapies. Patient will follow up with 7 to 10 days symptoms do not improve. Patient was instructed to immediately proceed to emergency room for any new, worsening, or symptoms lasting longer than anticipated. The patient's clinical presentation is otherwise unremarkable at this time. Based on exam and clinical finding, the patient is stable for discharge. Plan of care was discussed with patient. Patient verbalizes understanding and agrees to plan of care. This note was generated using JumpSeat software. It may contain errors in wording, punctuation, or spelling. Marvel Knight APRN.[place] documented in this encounter [facility] 05-26-2024 Telephone encounter Note Prescription Refill Information The patient has been identified by name and date of : Yes Caregiver verified no other encounters exist for this prescription request: Yes Caregiver confirmed with patient/requestor that no other refills are due, in the near future, with this provider at this time: Yes The last office visit in the department: 02/17/24 Does the patient have a future office visit with this provider/department: No Requested Prescriptions Pending Prescriptions Disp Refills sertraline (ZOLOFT) 50 mg tablet 90 tablet 1 Sig: Take 1 tablet by mouth once daily. metFORMIN ER (GLUCOPHAGE XR) 500 mg 24 hr tablet 90 tablet 3 Sig: Take 1 tablet by mouth daily with breakfast. metroNIDAZOLE (METROGEL) 1 % Topical Gel 60 g 5 Sig: Apply 1 application to affected area once daily. Location: cheeks and forehead erythromycin base 250 mg tablet 30 tablet 11 Sig: Take 1 tablet by mouth once daily. Deepali Lundberg MA May 26, 2024 11:29 AM [facility] 05-26-2024 Miscellaneous Notes Prescription Refill Information The patient has been identified by name and date of : Yes Caregiver verified no other encounters exist for this prescription request: Yes Caregiver confirmed with patient/requestor that no other refills are due, in the near future, with this provider at this time: Yes The last office visit in the department: 02/17/24 Does the patient have a future office visit with this provider/department: No Requested Prescriptions Pending Prescriptions Disp Refills sertraline (ZOLOFT) 50 mg tablet 90 tablet 1 Sig: Take 1 tablet by mouth once daily. metFORMIN ER (GLUCOPHAGE XR) 500 mg 24 hr tablet 90 tablet 3 Sig: Take 1 tablet by mouth daily with breakfast. metroNIDAZOLE (METROGEL) 1 % Topical Gel 60 g 5 Sig: Apply 1 application to affected area once daily. Location: cheeks and forehead erythromycin base 250 mg tablet 30 tablet 11 Sig: Take 1 tablet by mouth once daily. Deepali Lundberg MA May 26, 2024 11:29 AM documented in this encounter [facility] 02-17-2024 Note HNO ID: [id number] Author: RIGOBERTO SHRESTHA MD Service: ? Author Type: Physician Type: Progress Notes Filed: 02/17/2024 08:21 Note Text: Patient presents with: Physical HPI: Patient presents today for office visit for physical. Speaks some guinean. Daughter is with him to help Overall sleeping well. Using cpap. Uses most days. No snoring when using it. Benefits from its use. Moods are well. No issues. Sugars are good. He does monitor them and usually around 120 or better. Rosacea is doing well. MEDICATIONS: Current Outpatient Medications Medication Sig sertraline (ZOLOFT) 50 mg tablet Take 1 tablet by mouth once daily. metFORMIN ER (GLUCOPHAGE XR) 500 mg 24 hr tablet Take 1 tablet by mouth daily with breakfast. cyclobenzaprine (FLEXERIL) 10 mg tablet Take 1 tablet by mouth three times a day as needed for muscle spasm. metroNIDAZOLE (METROGEL) 1 % Topical Gel Apply 1 application to affected area once daily. Location: cheeks and forehead erythromycin base 250 mg tablet Take 1 tablet by mouth once daily. Zinc Gluconate 10 mg lozg Take 1 tablet by mouth once daily. MV with Cfh-Ezfyjuui-Hhtwvc (CENTRUM SILVER) 0.4-300-250 mg-mcg-mcg tab Take 1 tablet by mouth once daily. B Complex-Folic Acid (B COMPLEX 1, WITH FOLIC ACID,) 0.4 mg tab Take 1 tablet by mouth once daily. omega-3 fatty acids 1,000 mg cap Take 2 capsules by mouth once daily. CPAP AutoPAP 5-20 cmH2O, suitable mask, humidity, filters. Lifetime supplies. Dx: G47.33 blood sugar diagnostic (BLOOD GLUCOSE TEST) test strip Test blood sugar(s) 1 times daily. Dx: Type 2 DM - Uncontrolled E11.65 Insulin: No Lancets lancets Test blood sugar(s) 1 times daily. Dx: Type 2 DM - Uncontrolled E11.65 Insulin: No No current facility-administered medications for this visit. ALLERGIES: ALLERGIES No Known Allergies PAST MEDICAL HISTORY 10/26/2021: Arthritis of both hands Comment: mod 09/29/2015: Arthritis of left knee 10/26/2021: Arthritis of neck Comment: Mod 11/01/2018: Cervical radiculopathy 10/14/2015: Elevated hemoglobin A1c 10/22/2021: Family history of rheumatoid arthritis Comment: father No date: Hemorrhoids 01/20/2021: History of colonic polyps 11/01/2018: Impingement syndrome of shoulder region 05/21/2018: Mixed hyperlipidemia 09/29/2015: Obesity, Class II, BMI 35-39.9 12/08/2016: ZAHIDA (obstructive sleep apnea) Comment: AutoPAP 5-20 DME [facility] 07/08/2017: Plantar fasciitis No date: Radius fracture No date: Rosacea 05/15/2018: Severe anxiety with panic 03/23/2022: Well adult exam Comment: Last done: 03/23/2022 PAST SURGICAL HISTORY 01/20/2022: COLONOSCOPY Comment: repeat in 5 years 10/27/2015: COLONOSCOPY FLX DX W/COLLJ SPEC WHEN PFRMD Comment: Colonoscopy 01/20/2022: EGD W/O BRSH SPEC VARICIES INJ FAMILY HISTORY Problem Relation Age of Onset Stroke Mother Coronary Artery Disease Father Colon Cancer Father other (rheumatoid arthritis) Father Hypertension Sister Diabetes Brother from diabetic coma Lipids Brother Social History Tobacco Use Smoking status: Never Smokeless tobacco: Never Substance Use Topics Alcohol use: No Drug use: Never Reviewed current medications, allergies, past medical history, surgical history, family history and social history today. REVIEW OF SYSTEMS GENERAL: No weight loss, malaise or fevers HEENT: Negative for frequent or significant headaches, No changes in hearing or vision, no nose bleeds or other nasal problems RESPIRATORY: Negative for cough, hemoptysis, wheezing, COPD, dyspnea or shortness of breath CARDIOVASCULAR: Negative for chest pain, leg swelling, hypertension, CHF or palpitations GI: No nausea, vomiting, or diarrhea : No history of dysuria, frequency or incontinence HEMATOLOGY/LYMPHOLOGY: Negative for prolonged bleeding, bruising easily or swollen nodes All other reviewed and negative other than HPI. HEALTH MAINTENANCE: Reviewed health maintenance issues today and recommended the following in detail. VITALS: BP 132/72 Pulse 70 Wt 96.9 kg (213 lb 10 oz) SpO2 97% BMI 35.01 kg/m? Last 4 Encounter Wt Readings: Date: Wt: 02/17/2024 96.9 kg (213 lb 10 oz) 12/24/2023 94.3 kg (208 lb) 07/15/2023 93 kg (205 lb) 06/28/2023 95.3 kg (210 lb) PHYSICAL EXAMINATION: General appearance: Well appearing, alert, in no acute distress, well-hydrated, well nourished. Skin: Skin color, texture, turgor normal, no suspicious rashes or lesions Head: Normocephalic, no masses, lesions, tenderness or abnormalities Eyes: Anicteric sclera. Pupils are equally round and reactive to light. Extraocular movements are intact. Ears: External ears normal, canals clear Nose/Sinuses: Nares normal, septum midline, mucosa normal, no drainage or sinus tenderness Oropharynx: Lips, mucosa, and tongue normal, teeth and gums normal, oropharynx normal Neck: Supple, no adenopathy; thyroid symmetric, no (more content not included)... [facility] 02-17-2024 History of Presen t illness Narrative Patient presents with: Physical HPI: Patient presents today for office visit for physical. Speaks some guinean. Daughter is with him to help Overall sleeping well. Using cpap. Uses most days. No snoring when using it. Benefits from its use. Moods are well. No issues. Sugars are good. He does monitor them and usually around 120 or better. Rosacea is doing well. MEDICATIONS: Current Outpatient Medications Medication Sig sertraline (ZOLOFT) 50 mg tablet Take 1 tablet by mouth once daily. metFORMIN ER (GLUCOPHAGE XR) 500 mg 24 hr tablet Take 1 tablet by mouth daily with breakfast. cyclobenzaprine (FLEXERIL) 10 mg tablet Take 1 tablet by mouth three times a day as needed for muscle spasm. metroNIDAZOLE (METROGEL) 1 % Topical Gel Apply 1 application to affected area once daily. Location: cheeks and forehead erythromycin base 250 mg tablet Take 1 tablet by mouth once daily. Zinc Gluconate 10 mg lozg Take 1 tablet by mouth once daily. MV with Qaa-Ihetklbp-Namxwi (CENTRUM SILVER) 0.4-300-250 mg-mcg-mcg tab Take 1 tablet by mouth once daily. B Complex-Folic Acid (B COMPLEX 1, WITH FOLIC ACID,) 0.4 mg tab Take 1 tablet by mouth once daily. omega-3 fatty acids 1,000 mg cap Take 2 capsules by mouth once daily. CPAP AutoPAP 5-20 cmH2O, suitable mask, humidity, filters. Lifetime supplies. Dx: G47.33 blood sugar diagnostic (BLOOD GLUCOSE TEST) test strip Test blood sugar(s) 1 times daily. Dx: Type 2 DM - Uncontrolled E11.65 Insulin: No Lancets lancets Test blood sugar(s) 1 times daily. Dx: Type 2 DM - Uncontrolled E11.65 Insulin: No No current facility-administered medications for this visit. ALLERGIES: ALLERGIES No Known Allergies PAST MEDICAL HISTORY 10/26/2021: Arthritis of both hands Comment: mod 09/29/2015: Arthritis of left knee 10/26/2021: Arthritis of neck Comment: Mod 11/01/2018: Cervical radiculopathy 10/14/2015: Elevated hemoglobin A1c 10/22/2021: Family history of rheumatoid arthritis Comment: father No date: Hemorrhoids 01/20/2021: History of colonic polyps 11/01/2018: Impingement syndrome of shoulder region 05/21/2018: Mixed hyperlipidemia 09/29/2015: Obesity, Class II, BMI 35-39.9 12/08/2016: ZAHIDA (obstructive sleep apnea) Comment: AutoPAP 5-20 [facility] 07/08/2017: Plantar fasciitis No date: Radius fracture No date: Rosacea 05/15/2018: Severe anxiety with panic 03/23/2022: Well adult exam Comment: Last done: 03/23/2022 PAST SURGICAL HISTORY 01/20/2022: COLONOSCOPY Comment: repeat in 5 years 10/27/2015: COLONOSCOPY FLX DX W/COLLJ SPEC WHEN PFRMD Comment: Colonoscopy 01/20/2022: EGD W/O BRSH SPEC VARICIES INJ FAMILY HISTORY Problem Relation Age of Onset Stroke Mother Coronary Artery Disease Father Colon Cancer Father other (rheumatoid arthritis) Father Hypertension Sister Diabetes Brother from diabetic coma Lipids Brother Social History Tobacco Use Smoking status: Never Smokeless tobacco: Never Substance Use Topics Alcohol use: No Drug use: Never Reviewed current medications, allergies, past medical history, surgical history, family history and social history today. REVIEW OF SYSTEMS GENERAL: No weight loss, malaise or fevers HEENT: Negative for frequent or significant headaches, No changes in hearing or vision, no nose bleeds or other nasal problems RESPIRATORY: Negative for cough, hemoptysis, wheezing, COPD, dyspnea or shortness of breath CARDIOVASCULAR: Negative for chest pain, leg swelling, hypertension, CHF or palpitations GI: No nausea, vomiting, or diarrhea : No history of dysuria, frequency or incontinence HEMATOLOGY/LYMPHOLOGY: Negative for prolonged bleeding, bruising easily or swollen nodes All other reviewed and negative other than HPI. HEALTH MAINTENANCE: Reviewed health maintenance issues today and recommended the following in detail. VITALS: BP 132/72 Pulse 70 Wt 96.9 kg (213 lb 10 oz) SpO2 97% BMI 35.01 kg/m Last 4 Encounter Wt Readings: Date: Wt: 02/17/2024 96.9 kg (213 lb 10 oz) 12/24/2023 94.3 kg (208 lb) 07/15/2023 93 kg (205 lb) 06/28/2023 95.3 kg (210 lb) PHYSICAL EXAMINATION: General appearance: Well appearing, alert, in no acute distress, well-hydrated, well nourished. Skin: Skin color, texture, turgor normal, no suspicious rashes or lesions Head: Normocephalic, no masses, lesions, tenderness or abnormalities Eyes: Anicteric sclera. Pupils are equally round and reactive to light. Extraocular movements are intact. Ears: External ears normal, canals clear Nose/Sinuses: Nares normal, septum midline, mucosa normal, no drainage or sinus tenderness Oropharynx: Lips, mucosa, and tongue normal, teeth and gums normal, oropharynx normal Neck: Supple, no adenopathy; thyroid symmetric, normal size, no bruits Lungs: Lungs clear to auscultation. No wheezing, rhonchi, rales Heart: RRR without murmur, gallop, or rubs. No ectopy Abdomen: Normal abdominal exam, Abdomen soft, non-tender. Bowel sounds normal. No masses, organomegaly Extremities: No deformities, edema, skin discoloration, clubbing or cyanosis. Good capillary refill. Musculoskeletal: No joint swelling, deformity, or tenderness Peripheral pulses: Normal Neuro: Gait normal. Reflexes normal and symmetric. Sensation grossly intact. ASSESSMENT/PLAN: 1. Well adult exam - ICD9: V70.0, ICD10: Z00.00 (primary diagnosis) - Counseled on healthy diet and regular exercise - Discussed need for and benefit of weight loss. BMI 35.01 kg/(m^2) 2. Mixed hyperlipidemia - ICD9: 272.2, ICD10: E78.2 - Control undetermined, due for labs - labs are ordered. 3. ZAHIDA (obstructive sleep apnea) - ICD9: 327.23, ICD10: G47.33 - recommend compliance. 4. Family history of rheumatoid arthritis - ICD9: V17.7, ICD10: Z82.61 - no new issues. 5. Rosacea - ICD9: 695.3, ICD10: L71.9 - well controlled with meds. 6. Obesity, Class II, BMI 35-39.9 - ICD9: 278.00, ICD10: E66.9 - follow weight 7. Prediabetes - ICD9: 790.29, ICD10: R73.03 - check labs. 8. Severe anxiety with panic - ICD9: 300.01, ICD10: F41.0 - Continue current medications. Notify us if any difficulties are noted. Rigoberto Shrestha MD documented in this encounter [facility] 01-31-2024 Telephone encounter Note Prescription Refill Information The patient has been identified by name and date of : Yes Caregiver verified no other encounters exist for this prescription request: Yes Caregiver confirmed with patient/requestor that no other refills are due, in the near future, with this provider at this time: Yes The last office visit in the department: 12/24/2023 Does the patient have a future office visit with this provider/department: Yes Requested Prescriptions Pending Prescriptions Disp Refills sertraline (ZOLOFT) 50 mg tablet 90 tablet 1 Sig: Take 1 tablet by mouth once daily. metFORMIN ER (GLUCOPHAGE XR) 500 mg 24 hr tablet 180 tablet 1 Sig: Take 1 tablet by mouth daily with breakfast. Natalie Cantu LPN January 31, 2024 10:14 AM [facility] 01-31-2024 Miscellaneous Notes Prescription Refill Information The patient has been identified by name and date of : Yes Caregiver verified no other encounters exist for this prescription request: Yes Caregiver confirmed with patient/requestor that no other refills are due, in the near future, with this provider at this time: Yes The last office visit in the department: 12/24/2023 Does the patient have a future office visit with this provider/department: Yes Requested Prescriptions Pending Prescriptions Disp Refills sertraline (ZOLOFT) 50 mg tablet 90 tablet 1 Sig: Take 1 tablet by mouth once daily. metFORMIN ER (GLUCOPHAGE XR) 500 mg 24 hr tablet 180 tablet 1 Sig: Take 1 tablet by mouth daily with breakfast. Natalie Cantu LPN January 31, 2024 10:14 AM documented in this encounter [facility] 01-09-2024 Telephone encounter Note Please see pt message and advise. Cari Paulino MA [facility] 01-09-2024 Miscellaneous Notes Please see pt message and advise. Cari Paulino MA documented in this encounter [facility] 12-24-2023 Note HNO ID: [id number] Author: RIGOBERTO SHRESTHA MD Service: ? Author Type: Physician Type: Progress Notes Filed: 12/24/2023 09:20 Note Text: Patient presents with: Back Pain HPI: Patient presents today for office visit for follow Back pain: 2-3 weeks. Now also on the left. Hurts buttocks area goes down leg on right side but not on the left. Denies numbness or tingling. Only did one session of physical therapy. Reinforced going more than once. Had xray done. No injury. No weakness. Also asking today about frequency of BM's. States that he goes 6-7 times a day. Denies urgency of diarrhea. Did have c-scope 2021 has doing this at that time also. No bloody or bloody stools. No nausea or vomiting. No bloody or black stools. Is on metformin for his sugars. Last A1c was 6.4. Having issues with rosacea. Only using it occasionally. Has a hx of floaters. Reinforced need to follow with his eye MEDICATIONS: Current Outpatient Medications Medication Sig metFORMIN ER (GLUCOPHAGE XR) 500 mg 24 hr tablet Take 2 tablets by mouth daily with breakfast. sertraline (ZOLOFT) 50 mg tablet Take 1 tablet by mouth once daily. cyclobenzaprine (FLEXERIL) 10 mg tablet Take 1 tablet by mouth three times a day as needed for muscle spasm. metroNIDAZOLE (METROGEL) 1 % Topical Gel Apply 1 application to affected area once daily. Location: cheeks and forehead erythromycin base 250 mg tablet Take 1 tablet by mouth once daily. Zinc Gluconate 10 mg lozg Take 1 tablet by mouth once daily. MV with Gsn-Boplrhnq-Rufpjd (CENTRUM SILVER) 0.4-300-250 mg-mcg-mcg tab Take 1 tablet by mouth once daily. B Complex-Folic Acid (B COMPLEX 1, WITH FOLIC ACID,) 0.4 mg tab Take 1 tablet by mouth once daily. omega-3 fatty acids 1,000 mg cap Take 2 capsules by mouth once daily. blood sugar diagnostic (BLOOD GLUCOSE TEST) test strip Test blood sugar(s) 1 times daily. Dx: Type 2 DM - Uncontrolled E11.65 Insulin: No Lancets lancets Test blood sugar(s) 1 times daily. Dx: Type 2 DM - Uncontrolled E11.65 Insulin: No CPAP AutoPAP 5-20 cmH2O, suitable mask, humidity, filters. Lifetime supplies. Dx: G47.33 No current facility-administered medications for this visit. ALLERGIES: ALLERGIES No Known Allergies PAST MEDICAL HISTORY Diagnosis Date Arthritis of both hands 10/26/2021 mod Arthritis of left knee 09/29/2015 Arthritis of neck 10/26/2021 Mod Cervical radiculopathy 11/01/2018 Elevated hemoglobin A1c 10/14/2015 Family history of rheumatoid arthritis 10/22/2021 father Hemorrhoids History of colonic polyps 01/20/2021 Impingement syndrome of shoulder region 11/01/2018 Mixed hyperlipidemia 05/21/2018 Obesity, Class II, BMI 35-39.9 09/29/2015 ZAHIDA (obstructive sleep apnea) 12/08/2016 AutoPAP 5-20 [facility] Plantar fasciitis 07/08/2017 Radius fracture Rosacea Severe anxiety with panic 05/15/2018 Well adult exam 03/23/2022 Last done: 03/23/2022 PAST SURGICAL HISTORY Procedure Laterality Date COLONOSCOPY 01/20/2022 repeat in 5 years COLONOSCOPY FLX DX W/COLLJ SPEC WHEN PFRMD 10/27/2015 Colonoscopy EGD W/O BRSH SPEC VARICIES INJ 01/20/2022 FAMILY HISTORY Problem Relation Age of Onset Stroke Mother Coronary Artery Disease Father Colon Cancer Father other (rheumatoid arthritis) Father Hypertension Sister Diabetes Brother from diabetic coma Lipids Brother Social History Tobacco Use Smoking status: Never Smokeless tobacco: Never Substance Use Topics Alcohol use: No Drug use: Never Reviewed current medications, allergies, past medical history, surgical history, family history and social history today. REVIEW OF SYSTEMS All other reviewed and negative other than HPI. VITALS: BP 114/67 Pulse 77 Wt 94.3 kg (208 lb) SpO2 97% BMI 34.09 kg/m? Last 4 Encounter Wt Readings: Date: Wt: 07/15/2023 93 kg (205 lb) 06/28/2023 95.3 kg (210 lb) 05/29/2023 93.9 kg (207 lb) 12/13/2022 101.6 kg (224 lb) PHYSICAL EXAMINATION: General appearance: Well appearing, alert, in no acute distress, well-hydrated, well nourished. Skin: Skin color, texture, turgor normal, no suspicious rashes or lesions Head: Normocephalic, no masses, lesions, tenderness or abnormalities BACK: Normal curvature of spine. No spine tenderness. Straight leg test negative. Deep tendon reflexes 2+/4 at patellas. Normal lower extremity strength. ASSESSMENT/PLAN: 1. DDD (degenerative disc disease), lumbar - ICD9: 722.52, ICD10: M51.36 (primary diagnosis) - start physical therapy. Prednisone. Red flags for re-assessment reviewed with patient in detail. Call if symptoms worsen at all or if not better in one to two weeks 2. Prediabetes - ICD9: 790.29, ICD10: R73.03 - decrease metformin and see if bowels improve - METFORMIN ER 500 MG TABLET,EXTENDED RELEASE 24 HR 3. Left sided sciatica - ICD9: 724.3, ICD10: M54.32 - PREDNISONE 20 MG TABLET Rigoberto Shrestha MD [facility] 12-24-2023 History of Presen t illness Narrative Patient presents with: Back Pain HPI: Patient presents today for office visit for follow Back pain: 2-3 weeks. Now also on the left. Hurts buttocks area goes down leg on right side but not on the left. Denies numbness or tingling. Only did one session of physical therapy. Reinforced going more than once. Had xray done. No injury. No weakness. Also asking today about frequency of BM's. States that he goes 6-7 times a day. Denies urgency of diarrhea. Did have c-scope 2021 has doing this at that time also. No bloody or bloody stools. No nausea or vomiting. No bloody or black stools. Is on metformin for his sugars. Last A1c was 6.4. Having issues with rosacea. Only using it occasionally. Has a hx of floaters. Reinforced need to follow with his eye drRigoberto MEDICATIONS: Current Outpatient Medications Medication Sig metFORMIN ER (GLUCOPHAGE XR) 500 mg 24 hr tablet Take 2 tablets by mouth daily with breakfast. sertraline (ZOLOFT) 50 mg tablet Take 1 tablet by mouth once daily. cyclobenzaprine (FLEXERIL) 10 mg tablet Take 1 tablet by mouth three times a day as needed for muscle spasm. metroNIDAZOLE (METROGEL) 1 % Topical Gel Apply 1 application to affected area once daily. Location: cheeks and forehead erythromycin base 250 mg tablet Take 1 tablet by mouth once daily. Zinc Gluconate 10 mg lozg Take 1 tablet by mouth once daily. MV with Azh-Lemyjrnb-Krfecf (CENTRUM SILVER) 0.4-300-250 mg-mcg-mcg tab Take 1 tablet by mouth once daily. B Complex-Folic Acid (B COMPLEX 1, WITH FOLIC ACID,) 0.4 mg tab Take 1 tablet by mouth once daily. omega-3 fatty acids 1,000 mg cap Take 2 capsules by mouth once daily. blood sugar diagnostic (BLOOD GLUCOSE TEST) test strip Test blood sugar(s) 1 times daily. Dx: Type 2 DM - Uncontrolled E11.65 Insulin: No Lancets lancets Test blood sugar(s) 1 times daily. Dx: Type 2 DM - Uncontrolled E11.65 Insulin: No CPAP AutoPAP 5-20 cmH2O, suitable mask, humidity, filters. Lifetime supplies. Dx: G47.33 No current facility-administered medications for this visit. ALLERGIES: ALLERGIES No Known Allergies PAST MEDICAL HISTORY Diagnosis Date Arthritis of both hands 10/26/2021 mod Arthritis of left knee 09/29/2015 Arthritis of neck 10/26/2021 Mod Cervical radiculopathy 11/01/2018 Elevated hemoglobin A1c 10/14/2015 Family history of rheumatoid arthritis 10/22/2021 father Hemorrhoids History of colonic polyps 01/20/2021 Impingement syndrome of shoulder region 11/01/2018 Mixed hyperlipidemia 05/21/2018 Obesity, Class II, BMI 35-39.9 09/29/2015 ZAHIDA (obstructive sleep apnea) 12/08/2016 AutoPAP 5-20 DME [facility] Plantar fasciitis 07/08/2017 Radius fracture Rosacea Severe anxiety with panic 05/15/2018 Well adult exam 03/23/2022 Last done: 03/23/2022 PAST SURGICAL HISTORY Procedure Laterality Date COLONOSCOPY 01/20/2022 repeat in 5 years COLONOSCOPY FLX DX W/COLLJ SPEC WHEN PFRMD 10/27/2015 Colonoscopy EGD W/O BRSH SPEC VARICIES INJ 01/20/2022 FAMILY HISTORY Problem Relation Age of Onset Stroke Mother Coronary Artery Disease Father Colon Cancer Father other (rheumatoid arthritis) Father Hypertension Sister Diabetes Brother from diabetic coma Lipids Brother Social History Tobacco Use Smoking status: Never Smokeless tobacco: Never Substance Use Topics Alcohol use: No Drug use: Never Reviewed current medications, allergies, past medical history, surgical history, family history and social history today. REVIEW OF SYSTEMS All other reviewed and negative other than HPI. VITALS: BP 114/67 Pulse 77 Wt 94.3 kg (208 lb) SpO2 97% BMI 34.09 kg/m Last 4 Encounter Wt Readings: Date: Wt: 07/15/2023 93 kg (205 lb) 06/28/2023 95.3 kg (210 lb) 05/29/2023 93.9 kg (207 lb) 12/13/2022 101.6 kg (224 lb) PHYSICAL EXAMINATION: General appearance: Well appearing, alert, in no acute distress, well-hydrated, well nourished. Skin: Skin color, texture, turgor normal, no suspicious rashes or lesions Head: Normocephalic, no masses, lesions, tenderness or abnormalities BACK: Normal curvature of spine. No spine tenderness. Straight leg test negative. Deep tendon reflexes 2+/4 at patellas. Normal lower extremity strength. ASSESSMENT/PLAN: 1. DDD (degenerative disc disease), lumbar - ICD9: 722.52, ICD10: M51.36 (primary diagnosis) - start physical therapy. Prednisone. Red flags for re-assessment reviewed with patient in detail. Call if symptoms worsen at all or if not better in one to two weeks 2. Prediabetes - ICD9: 790.29, ICD10: R73.03 - decrease metformin and see if bowels improve - METFORMIN ER 500 MG TABLET,EXTENDED RELEASE 24 HR 3. Left sided sciatica - ICD9: 724.3, ICD10: M54.32 - PREDNISONE 20 MG TABLET Rigoberto Shrestha MD documented in this encounter [facility] 08-24-2023 Miscellaneous Notes 08/24: Received authorization from the insurance company. Called patient and left messages on his home and mobile number asking him to call the office to schedule additional Physical Therapy visits. Also sent a MC message to the patient. 08/23: The desktop publishing associate called and left a message asking patient to contact the office to schedule. A MC message was also sent. 08/12: The desktop publishing associate left a message advising authorization received and to contact the office to schedule. documented in this encounter [facility] 08-11-2023 History of Presen t illness Narrative Program_ID:[id number] Access Code: [email or web address] URL: [email or web address] Location, [place]/ Date: 08-11-2023 Prepared By: Shailesh Farmer Program Notes Exercises - Standing Anti-Rotation Press with Anchored Resistance - 1 x daily - 5 x weekly - 4 sets - 10 reps Episode Visit Count: 1 Therapist That Will Accept/Oversee The Plan Of Care: Shailesh Farmer PT Start of Care Date: 08/11/23 Onset Date: 06/10/23 Patient Identified by Name and Date of : Yes REHABILITATION AND SPORTS THERAPY PHYSICAL THERAPY EVALUATION PLAN OF CARE: Assessment: Jose Fierro presents with chief complaint of R LBP with RLE radiculopathy that interferes with sitting . He presents with impairments in independence in exercise, overall function, strength, and symptom management. PROMIS (Patient-Reported Outcomes Measurement Information System) scores were reviewed and all domains identified as within normal limits. Prognosis for therapy is Good due to: current objective clinical presentation, within-session changes . Pt demonstrates increased radicular symptoms with prone extension He will benefit from skilled therapy services to meet the goals established for this plan of care as noted below. Classification Low Back Pain Classification: Movement Control Goals for Episode of Care: created on 08/11/23 through 10/06/23 Independent in home exercises. Patient will decrease pain rating by 2 points to meet minimal clinical important difference for numeric pain rating scale. Restore pain-free lumbar ROM to WNL to allow for ease of work duties Sleep through night without pain/symptoms. Sit 1 hours without pain/symptoms to allow for ease of driving Patient Goals: Decrease pain. Planned Interventions, Frequency, and Duration: Current Frequency: 1x/month Duration: One month Total Number of Visits Planned: 1 Planned Treatment Interventions: Therapeutic exercise (92200), Neuromuscular re-education (16494), Manual therapy (13258), Therapeutic activities (47612), Self-fdc management (74729), Patient/Family/Caregiver Education PLAN FOR NEXT VISIT: Assess reaction to stability exercise. Re-assess spine. Patient demonstrates good understanding of plan of care and treatment. The above goals and plan of care were discussed and agreed upon by patient/family. SUBJECTIVE: Numbness down both legs. Hurts when bending down. Pain in the R LB. Less symptoms when standing. Hard time bending down and feels limited in this motion. Some pain when sleeping. Patient Goals: Decrease pain. Functional Limitations: sitting Prior Level of Function: Independent without limitations Intake Information: Prescription present Pain: Pain Pain Level: 3 Pain Location: Low Back/Lumbar Spine - Right Description: (Poking) Additional Pain Information : Location 2 Pain Level 2: 0 Pain Location 2: Leg - Right Description 2: Numbness (down leg to the top of the foot) Post Treatment Pain Pain Mechanism Classification: Neuropathic PROMIS Scales Higher is Better 08/11/2023 Phys Func - Score 55 (within normal limits) Phys Func - Percentile 69% Self-Eff Symptom - Score 69 (High) Self-Eff Symptom - Percentile 97% T-scores: mean of general population = 50. 5 points is clinically meaningfully difference Percentiles provide an indication of how the patient's score ranks in relation to the general population. Higher percentile rankings indicate better function/quality of life. 50th percentile is the average of the general population and indicates half of respondents had a worse score. OBJECTIVE MEASURES WITH LEVEL OF FUNCTION: Posture / Alignment Posture: Good Spine Observations R Lumbar Spine Palpation Tenderness: Paraspinals, Spinous process Sensation - Lumbar Sensation: Impaired Lumbar Spine AROM Lumbar Flexion: Minimal limitation, Peripheralizing Lumbar Extension: Centralizing, Minimal limitation LE Strength Trunk Strength: Painful with prone R hip extension causing symptoms down the leg with some trunk rotation observed R Hip Extension: 3+/5 Gait Gait Observation: WNL Education: Education Learning Preferences: Demonstration, Explanation, Performance, Printed Materials Barriers: None Learning/educational needs: Home exercise program, Plan of Care Education Provided: Yes, see treatment interventions for education provided Education Provided To: Patient Education Mode/Type: Demonstration, Explanation/Discussion, Literature/Printed Materials, Performance Response to Education/Teach Back: States/Identifies, Return Demonstration TREATMENT: PT Treatment Interventions: Therapeutic Exercise Evaluation Therapeutic Exercise: 1: Discussed all therapeutic exercises. Explained centralization vs peripheralization of symptoms. 2: Prone opp arm and leg lift 2 x 10 (not given for home) 3: Standing paloff BTB x 10 each side holding 5 sec each (Given for home) 4: HILARY x 3 min (Pain worsens down leg so stopped) 5: Standing lumbar extensions 3 x 10 (centralizes symptoms) Skilled Intervention: Patient was educated in proper exercise technique and purpose for exercises. Skilled judgment was used in selection of appropriate interventions. Provided written instruction for home exercise program to facilitate proper performance and compliance. Correct performance of therapeutic exercises was facilitated with verbal and visual cuing. Billing * Evaluation Low Complexity: 1 Unit Therapeutic Exercise Treatment Minutes: 26 Skilled Treatment Time Minutes (timed and untimed codes): 48 Total Session Time (minutes): 48 Session Start Time : 914 Session Stop Time : 1003 Shailesh Farmer PT documented in this encounter [facility] 07-15-2023 History of Past i llness Narrative Problem Noted Date Diagnosed Date Resolved Date Closed head injury 07/15/2023 07/15/2023 Hematoma of occipital region of scalp 07/15/202311/202307/15/2023 Laceration of scalp 07/15/2023 07/15/2023 07/15/19 24 Problem 07/15/2023 07/15/2023 07/15/2023 Well adult exam 03/23/2022 07/15/2023 Overview: Last done: 03/23/2022 Screening for prostate cancer 03/23/2022 07/15/2023 Leg cramps 03/23/2022 07/15/2023 Medication management 01/20/20212023 Helicobacter pylori gastritis 07/08/2017 05/15/2018 Plantar fasciitis 07/08/2017 07/15/2023 Nasal congestion 12/08/2016 05/15/2018 Elevated hemoglobin A1c 10/14/20150 11/2023 documented as of this encounter (statuses as of 08/11/2023) [facility] History of Past illness Narrative* Problem Noted Date Diagnosed Date Resolved Date Closed head injury 07/15/2023 07/15/2023 Hematoma of occipital region of scalp 07/15/202311/202307/15/2023 Laceration of scalp 07/15/2023 07/15/2023 07/15/19 24 Problem 07/15/2023 07/15/2023 07/15/2023 Well adult exam 03/23/2022 07/15/2023 Overview: Last done: 03/23/2022 Screening for prostate cancer 03/23/2022 07/15/2023 Leg cramps 03/23/2022 07/15/2023 Medication management 01/20/20212023 Helicobacter pylori gastritis 07/08/2017 05/15/2018 Plantar fasciitis 07/08/2017 07/15/2023 Nasal congestion 12/08/2016 05/15/2018 Elevated hemoglobin A1c 10/14/20150 11/2023 documented as of this encounter (statuses as of 08/24/2023) [facility]12-21-[facility]23 History of Present illness Narrative* Jarrett Fierro LPN - 06/30/2023 8:36 AM EST Scan on 06/30/2023 5:34 AM by Provider, TOMAS Salas: Consultation - Emergency Medicine documented in [facility] History of Present illness Narrative* Marni Mcneill PA-C - 06/28/2023 7:38 PM EST Images from the original note were not included. This note was created using [employer]. Subjective Jose Fierro is a 57 year old male. HPI Presents with low back pain radiating down the side of his right leg. This started over the past day. States he has had low back problems before but never had pain into his leg. No numbness or weakness. Pain worsens with laying and with twisting and bending. Pain does not go past his knee. He has taken some naproxen today for pain. No abdominal pain. No urinary complaints. Denies any injury or falls to his back. States the pain just started yesterday morning. He does stand all day at work. Denies any heavy lifting. Denies saddle anesthesia or urinary incontinence. Patient also complaining of a sore on his right upper lip over the past day. He has a history of recurrent cold sores and this feels similar. He has put some Abreva on it but does not seem to be helping. Patient daughter is here to translate as patient is Maori-speaking, declines other hem inspector. Review of Systems Constitutional: Negative. HENT: Positive for mouth sores. Cardiovascular: Negative. Gastrointestinal: Negative. Musculoskeletal: Positive for back pain. Neurological: Negative. All other systems reviewed and are negative. PAST MEDICAL HISTORY Diagnosis Date Arthritis of both hands 10/26/2021 mod Arthritis of left knee 09/29/2015 Arthritis of neck 10/26/2021 Mod Cervical radiculopathy 11/01/2018 Elevated hemoglobin A1c 10/14/2015 Family history of rheumatoid arthritis 10/22/2021 father Hemorrhoids History of colonic polyps 01/20/2021 Impingement syndrome of shoulder region 11/01/2018 Mixed hyperlipidemia 05/21/2018 Obesity, Class II, BMI 35-39.9 09/29/2015 ZAHIDA (obstructive sleep apnea) 12/08/2016 AutoPAP 5-20 [facility] Plantar fasciitis 07/08/2017 Radius fracture Rosacea Severe anxiety with panic 05/15/2018 Well adult exam 03/23/2022 Last done: 03/23/2022 Current Outpatient Medications Medication Sig Dispense Refill metFORMIN ER (GLUCOPHAGE XR) 500 mg 24 hr tablet Take 2 tablets by mouth daily with breakfast. 60 tablet 0 sertraline (ZOLOFT) 50 mg tablet Take 1 tablet by mouth once daily. 30 tablet 0 metroNIDAZOLE (METROGEL) 1 % Topical Gel Apply 1 application to affected area once daily. Location:cheeks and forehead 60 g 5 erythromycin base 250 mg tablet Take 1 tablet by mouth once daily. 30 tablet 11 Zinc Gluconate 10 mg lozg Take 1 tablet by mouth once daily. MV with Otn-Dmmrctxq-Nwmebc (CENTRUM SILVER) 0.4-300-250 mg-mcg-mcg tab Take 1 tablet by mouth oncedaily. B Complex-Folic Acid (B COMPLEX 1, WITH FOLIC ACID,) 0.4 mg tab Take 1 tablet by mouth once daily. omega-3 fatty acids 1,000 mg cap Take 2 capsules by mouth once daily. Lancets lancets Test blood sugar(s) 1 times daily. Dx: Type 2 DM - Uncontrolled E11.65 Insulin: No 100 Each 11 CPAP AutoPAP 5-20 cmH2O, suitable mask, humidity, filters. Lifetime supplies. Dx: G47.33 1 Device 0 valACYclovir (VALTREX) 1 gram tablet Take 2 tablets by mouth two times a day for 1 day. 4 tablet 0 predniSONE (DELTASONE) 20 mg tablet Take 2 tablets by mouth once daily for 5 days. 10 tablet 0 cyclobenzaprine (FLEXERIL) 10 mg tablet Take 1 tablet by mouth three times a day as needed for muscle spasm. 15 tablet 0 cyclobenzaprine (FLEXERIL) 10 mg tablet Take 1 tablet by mouth three times daily as needed for muscle spasm. (Patient not taking: Reported on 06/28/2023) 18 tablet 0 blood sugar diagnostic (BLOOD GLUCOSE TEST) test strip Test blood sugar(s) 1 times daily. Dx: Type 2 DM - Uncontrolled E11.65 Insulin: No (Patient not taking: Reported on 10/22/2022) 50 Strip 11 No current facility-administered medications for this visit. PAST SURGICAL HISTORY Procedure Laterality Date COLONOSCOPY 01/20/2022 repeat in 5 years COLONOSCOPY FLX DX W/COLLJ SPEC WHEN PFRMD 10/27/2015 Colonoscopy EGD W/O BRSH SPEC VARICIES INJ 01/20/2022 FAMILY HISTORY Problem Relation Age of Onset Stroke Mother Coronary Artery Disease Father Colon Cancer Father other (rheumatoid arthritis) Father Hypertension Sister Diabetes Brother from diabetic coma Lipids Brother Social History Tobacco Use Smoking status: Never Smokeless tobacco: Never Substance Use Topics Alcohol use: No Drug use: Never Objective BP 126/72 Pulse 76 Temp 36.7 C (98.1 F) Resp 16 Wt 95.3 kg (210 lb) SpO2 98% BMI 34.41 kg/m Physical Exam Vitals reviewed. Constitutional: Appearance: Normal appearance. HENT: Head: Normocephalic and atraumatic. Mouth/Throat: Comments: Patient has vesicular erythematous lesion on the right upper lip consistent with cold sore. Cardiovascular: Rate and Rhythm: Normal rate and regular rhythm. Heart sounds: Normal heart sounds. Pulmonary: Effort: Pulmonary effort is normal. Breath sounds: Normal breath sounds. Musculoskeletal: Comments: Patient has tenderness in the bilateral paraspinal musculature lumbar back. No midline tenderness. No step-off or crepitation. Normal strength and sensation in lower extremities. Positive straight leg test on the right. Worsening pain with bending and twisting. DTRs intact and symmetricalin the lower extremities bilaterally. Able to go up on toes and back on heels. Skin: General: Skin is dry. Neurological: Mental Status: He is alert. Assessment and Plan ASSESSMENT/PLAN: 1. Lumbar radiculopathy - ICD9: 724.4, ICD10: M54.16 (primary diagnosis) No injury or trauma to his back, will treat with prednisone and Flexeril. X-ray deferred at this point due to no trauma. Discussed if not improving to follow-up with PCP. Discussed possibility of bulging disc. Recommended rest, ice. Red flags for ER care discussed. Patient and daughter agreeable with plan. 2. Recurrent cold sores - ICD9: 054.9, ICD10: B00.1 Valtrex prescription sent. Patient most recent labs reviewed and normal kidney function. Marni Mcneill PA-C [facility] Miscellaneous Notes* Telephone Encounter - Marvel Collado MD - 06/25/2023 4:33 PM EST The following approved medication requests have been transmitted electronically. Requested Prescriptions Signed Prescriptions Disp Refills metFORMIN ER (GLUCOPHAGE XR) 500 mg 24 hr tablet 60 tablet 0 Sig: Take 2 tablets by mouth daily with breakfast. Authorizing Provider: MARVEL COLLADO sertraline (ZOLOFT) 50 mg tablet 30 tablet 0 Sig: Take 1 tablet by mouth once daily. Authorizing Provider: MARVEL COLLADO MD * Telephone Encounter - Marian Lacey MA - 06/24/2023 1:15 PM EST Patient has been identified by name and date of : Yes Patient phones for refill(s): Requested Prescriptions Pending Prescriptions Disp Refills metFORMIN ER (GLUCOPHAGE XR) 500 mg 24 hr tablet 60 tablet 5 Sig: Take 2 tablets by mouth daily with breakfast. sertraline (ZOLOFT) 50 mg tablet 30 tablet 5 Sig: Take 1 tablet by mouth once daily. Date of last office visit in primary care: 12/13/2022 Date of next office visit in primary care: Visit date not found patient for yesterday was cancelled- Message has been left. Also sent my chart message. Please advise. Thank you. Marian Lacey MA. 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 Ana Cristina Orozco * Telephone Encounter - Ana Cristina Orozco - 05/31/2023 2:06 PM EST Patient needs excuse stating specific dates that he needed off for covid. States that he needs a note stating he will be excused on Wednesday 05/30 then he is able to return to work 06/01 wearing a masktill 06/05. 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 Ana Cristina Orozco ' documented in this encounterGerman Hospital11-20-2023 Miscellaneous Notes* Telephone Encounter - Ana Cristina Orozco - 05/30/2023 12:42 PM EST Left detailed message on a secured voicemail. Ana Cristina Orozco * Telephone Encounter - Bárbara Lacey APRN.CNP - 05/30/2023 10:45 AM EST These call and notify that Paxlovid was sent to the pharmacy. Per patient's request. documented in this encounterGerman Hospital11-20-2023 Miscellaneous Notes* Telephone Encounter - Yesica Alves APRN.CNP - 05/30/2023 10:55 AM EST It looks like paxlovid was sent to pharmacy. * Telephone Encounter - Anna Alarcon RN - 05/30/2023 10:14 AM EST Patient 's daughter notified of results and provider's instructions. Patient's daughter verbalizes understanding. Daughter asking if Paxlovid can be sent to pharmacy? Daughter scheduled a virtual visit with Dr. Oseguera for today but asking if medication can just be sent to pharmacy instead? Anna Alarcon RN * Telephone Encounter - Bárbara Lacey APRN.CNP - 05/30/2023 8:27 AM EST Patient was positive for COVID. Patient should quarantine for 5 days mask for another 5 days. Patient should treat with eixu-sbs-wrzqaoi medications for symptom management. Patient was negative for flu and RSV. documented in this encounterGerman Hospital11-20-2023 Miscellaneous Notes* Telephone Encounter - Cari Paulino Ma - 05/30/2023 8:39 AM EST Pt had positive Covid test through [facility], seen on 05/29/23. Do we need to complete VV or okay to treat with Paxlovid? Cari Paulino Ma documented in this encounterGerman Hospital11-19-2023 History of Present illness Narrative* Bárbara Lacey APRN.[place] - 05/29/2023 8:59 AM EST CC: Patient presents with: Cough: With CARRASCO, body aches, sore throat, SOB x 2 days HPI: Jose Fierro is a 57 year old male who presents to the office with complaint of cough, nonproductive and sore throat for a few days. Symptoms are staying the same. Associated symptoms includes headache and body aches. Denies fever, nausea, vomiting , and diarrhea. Treatments tried include nothing so far. with no relief of symptoms. Sick contacts: unknown. History of asthma, frequent episodes of bronchitis, chronic bronchitis, bronchiectasis or COPD: No Smoker: No Seasonal/environmental allergies: No The ROS is otherwise negative. The patient's pmh, medications, allergies, and past visits are reviewed. PHYSICAL EXAM: BP 140/82 Pulse 97 Temp (!) 38 C (100.4 F) Resp 18 Wt 93.9 kg (207 lb) SpO2 97% BMI 33.92 kg/m General appearance: alert, cooperative, pleasant, in no acute distress Head: Normocephalic Eyes: EOM's intact, conjunctiva pink and moist, no icterus, sclera white, non-injected Ears: Right ear: External ear/canal- Normal, TM - clear with good landmarks. Left ear: External ear/canal- Normal, TM - clear with good landmarks Oropharynx:moist without lesions, No erythema, exudates or tonsillar hypertrophy. Heart: Negative. RRR without obvious murmur, gallop, or rubs. No ectopy. Lungs: clear to auscultation, without rales or wheeze, good air exchange PAST MEDICAL HISTORY Diagnosis Date Arthritis of both hands 10/26/2021 mod Arthritis of left knee 09/29/2015 Arthritis of neck 10/26/2021 Mod Cervical radiculopathy 11/01/2018 Elevated hemoglobin A1c 10/14/2015 Family history of rheumatoid arthritis 10/22/2021 father Hemorrhoids History of colonic polyps 01/20/2021 Impingement syndrome of shoulder region 11/01/2018 Mixed hyperlipidemia 05/21/2018 Obesity, Class II, BMI 35-39.9 09/29/2015 ZAHIDA (obstructive sleep apnea) 12/08/2016 AutoPAP 5-20 [facility] Plantar fasciitis 07/08/2017 Radius fracture Rosacea Severe anxiety with panic 05/15/2018 Well adult exam 03/23/2022 Last done: 03/23/2022 PAST SURGICAL HISTORY Procedure Laterality Date COLONOSCOPY 01/20/2022 repeat in 5 years COLONOSCOPY FLX DX W/COLLJ SPEC WHEN PFRMD 10/27/2015 Colonoscopy EGD W/O [facility] SPEC VARICIES INJ 01/20/2022 ALLERGIES Patient has no known allergies. MEDICATIONS sertraline (ZOLOFT) 50 mg tablet Take 1 tablet by mouth once daily. metroNIDAZOLE (METROGEL) 1 % Topical Gel Apply 1 application to affected area once daily. Location:cheeks and forehead cyclobenzaprine (FLEXERIL) 10 mg tablet Take 1 tablet by mouth three times daily as needed for muscle spasm. erythromycin base 250 mg tablet Take 1 tablet by mouth once daily. Zinc Gluconate 10 mg lozg Take 1 tablet by mouth once daily. MV with Dds-Faitbemd-Qphbau (CENTRUM SILVER) 0.4-300-250 mg-mcg-mcg tab Take 1 tablet by mouth oncedaily. B Complex-Folic Acid (B COMPLEX 1, WITH FOLIC ACID,) 0.4 mg tab Take 1 tablet by mouth once daily. omega-3 fatty acids 1,000 mg cap Take 2 capsules by mouth once daily. Lancets lancets Test blood sugar(s) 1 times daily. Dx: Type 2 DM - Uncontrolled E11.65 Insulin: No CPAP AutoPAP 5-20 cmH2O, suitable mask, humidity, filters. Lifetime supplies. Dx: G47.33 metFORMIN ER (GLUCOPHAGE XR) 500 mg 24 hr tablet Take 2 tablets by mouth daily with breakfast. blood sugar diagnostic (BLOOD GLUCOSE TEST) test strip Test blood sugar(s) 1 times daily. Dx: Type 2 DM - Uncontrolled E11.65 Insulin: No (Patient not taking: Reported on 10/22/2022) FAMILY HISTORY Problem Relation Age of Onset Stroke Mother Coronary Artery Disease Father Colon Cancer Father other (rheumatoid arthritis) Father Hypertension Sister Diabetes Brother from diabetic coma Lipids Brother Social History Tobacco Use Smoking status: Never Smokeless tobacco: Never Substance Use Topics Alcohol use: No Drug use: Never ASSESSMENT/PLAN: 1. Sore throat - ICD9: 462, ICD10: J02.9 - STREP A MOLECULAR (POC) - neg COVID test ordered per request from patient. Potential red flag symptoms discussed with the patient. Reviewed appropriate action plan to take ifred flag symptoms occur. Patient agreeable to treatment plan. Bárbara Lacey APRN.[place] documented in this encounterGerman Hospital06-06-2023 Miscellaneous Notes* Telephone Encounter - Jarrett Fierro LPN - 12/14/2022 8:14 AM EDT Pt's daughter advised of results and instructions. She verbalizes understanding. Jarrett Fierro LPN * Telephone Encounter - Ayse Kumar PA-C - 12/14/2022 7:58 AM EDT Let patient know that his a1c is stable at 6.3%. still prediabetes so needs to watch carbs/sugars. 6.5% is consider diabetes. His cholesterol has improved. Good job. Other labs are all wnl. Ayse Kumar PA-C documented in this encounterGerman Hospital06-05-2023 Nurse Note* Jarrett Fierro LPN - 12/13/2022 8:32 AM EDT Pt did not want to use bookkeeping teacher services. Had his daughter Irene translate over the phone. Jarrett Fierro LPN documented in this encounterGerman Hospital06-05-2023 Instructions* Patient Instructions* Ayse Kumar PA-C - 12/13/2022 7:48 AM EDT Take a Vitamin B complex (with atleast 30mg of B6) 3 times a day for nocturnal leg cramps. documented in this encounterGerman Hospital06-05-2023 History of Present illness Narrative* Ayse Kumar PA-C - 12/13/2022 7:43 AM EDT Chief Complaint Patient presents with: Recheck: Medication refills HPI Jose Fierro is a 57 year old male who presents here today for Chronic Medical Conditions.. Patient is here alone however he has daughter on phone who acts as hem inspector. He declines utilitizing our hem inspector services. Patient with hx of hyperlipidemia, ZAHIDA, elevated a1c, rosacea, leg cramps, and those as below. Patient declines concerns. States only here to get refills. Past medical history, appointments, medications, allergies reviewed. Previous Medical History PAST MEDICAL HISTORY Diagnosis Date Arthritis of both hands 10/26/2021 mod Arthritis of left knee 09/29/2015 Arthritis of neck 10/26/2021 Mod Cervical radiculopathy 11/01/2018 Elevated hemoglobin A1c 10/14/2015 Family history of rheumatoid arthritis 10/22/2021 father Hemorrhoids History of colonic polyps 01/20/2021 Impingement syndrome of shoulder region 11/01/2018 Mixed hyperlipidemia 05/21/2018 Obesity, Class II, BMI 35-39.9 09/29/2015 ZAHIDA (obstructive sleep apnea) 12/08/2016 AutoPAP 5-20 [facility] Plantar fasciitis 07/08/2017 Radius fracture Rosacea Severe anxiety with panic 05/15/2018 Well adult exam 03/23/2022 Last done: 03/23/2022 Previous Surgical History PAST SURGICAL HISTORY Procedure Laterality Date COLONOSCOPY 01/20/2022 repeat in 5 years COLONOSCOPY FLX DX W/COLLJ SPEC WHEN PFRMD 10/27/2015 Colonoscopy EGD W/O BRSH SPEC VARICIES INJ 01/20/2022 Family History FAMILY HISTORY Problem Relation Age of Onset Stroke Mother Coronary Artery Disease Father Colon Cancer Father other (rheumatoid arthritis) Father Hypertension Sister Diabetes Brother from diabetic coma Lipids Brother Patient Allergies ALLERGIES No Known Allergies Current Medications Current Outpatient Medications on File Prior to Visit Medication Sig metFORMIN ER (GLUCOPHAGE XR) 500 mg 24 hr tablet Take 2 tablets by mouth daily with breakfast. cyclobenzaprine (FLEXERIL) 10 mg tablet Take 1 tablet by mouth three times daily as needed for muscle spasm. sertraline (ZOLOFT) 50 mg tablet Take 1 tablet by mouth once daily. erythromycin base 250 mg tablet Take 1 tablet by mouth once daily. Zinc Gluconate 10 mg lozg Take 1 tablet by mouth once daily. MV with Bty-Doxppnfh-Tfapdl (CENTRUM SILVER) 0.4-300-250 mg-mcg-mcg tab Take 1 tablet by mouth oncedaily. B Complex-Folic Acid (B COMPLEX 1, WITH FOLIC ACID,) 0.4 mg tab Take 1 tablet by mouth once daily. omega-3 fatty acids 1,000 mg cap Take 2 capsules by mouth once daily. Lancets lancets Test blood sugar(s) 1 times daily. Dx: Type 2 DM - Uncontrolled E11.65 Insulin: No CPAP AutoPAP 5-20 cmH2O, suitable mask, humidity, filters. Lifetime supplies. Dx: G47.33 blood sugar diagnostic (BLOOD GLUCOSE TEST) test strip Test blood sugar(s) 1 times daily. Dx: Type 2 DM - Uncontrolled E11.65 Insulin: No (Patient not taking: Reported on 10/22/2022) No current facility-administered medications on file prior to visit. Social History Social History Tobacco Use Smoking status: Never Smokeless tobacco: Never Substance Use Topics Alcohol use: No Drug use: Never Review of Symptoms REVIEW OF SYSTEMS GENERAL: No weight loss, malaise or fevers NECK: Negative for lumps, goiter, pain and significant neck swelling RESPIRATORY: Negative for cough, hemoptysis, wheezing, COPD, dyspnea or shortness of breath CARDIOVASCULAR: Negative for chest pain, leg swelling, hypertension, CHF or palpitations NEURO: No history of headaches, syncope, paralysis, seizures or tremors EXAM: BP 132/80 (BP Site: Left Arm, BP Position: Sitting, BP Cuff Size: Large Adult) Pulse 72 Temp 36.7 C (98 F) Resp 18 Wt 101.6 kg (224 lb) BMI 36.71 kg/m General Appearance: Well appearing, alert, in no acute distress, well-hydrated, well nourished.. Neck: Supple, no adenopathy; thyroid symmetric, normal size, no bruits. Lungs: Lungs clear to auscultation. No wheezing, rhonchi, rales.. Heart: RRR without murmur, gallop, or rubs. No ectopy. Extremities: No deformities, edema, skin discoloration, clubbing or cyanosis. Good capillary refill. . Peripheral Pulses: Normal. Health Maintenance List COVID-19 VACCINE(6 - Booster for Pfizer series) due on 05/09/2022 DEPRESSION ASSESSMENT Never done HBA1C due on 09/20/2022 SHINGRIX VACCINE(1 of 2) due on 03/23/2023 PNEUMOCOCCAL(1 - PCV) due on 01/08/2030 LDL CHOLESTEROL due on 03/23/2023 ANNUAL PCP TEAM CHRONIC DISEASE VISIT due on 03/23/2023 COLORECTAL CANCER SCREENING due on 01/20/2027 PROSTATE CANCER SCREENING DISCUSSION due on 03/23/2027 DTAP,TDAP,TD(3 - Td or Tdap) due on 10/08/2032 INFLUENZA Completed HEPATITIS C SCREENING Completed HIV SCREENING Completed URINE ALBUMIN:CREATININE RATIO Discontinued DILATED RETINAL EXAM Discontinued DIABETIC FOOT EXAM Discontinued Data reviewed N/a ASSESSMENT/PLAN: 1. Mixed hyperlipidemia - ICD9: 272.2, ICD10: E78.2 (primary diagnosis) Await labs - Continue current medications - Counseled on healthy diet and regular exercise - Discussed need for and benefit of weight loss. BMI 36.71 kg/(m^2) - URINALYSIS, WITH MICROSCOPIC - LIPID PANEL, NONFASTING - COMP METABOLIC PANEL 2. Elevated hemoglobin A1c - ICD9: 790.29, ICD10: R73.09 - URINALYSIS, WITH MICROSCOPIC - HGB A1C - COMP METABOLIC PANEL 3. Severe anxiety with panic - ICD9: 300.01, ICD10: F41.0 stable - SERTRALINE 50 MG TABLET 4. Rosacea - ICD9: 695.3, ICD10: L71.9 Improved greatly with metro gel. Refill given 5. Obesity, Class II, BMI 35-39.9 - ICD9: 278.00, ICD10: E66.9 Stable - Behavioral intervention 6. Leg cramps - ICD9: 729.82, ICD10: R25.2 Discussed B complex vitamins and studies that show benefit for nocturnal leg cramps. Will also check mg level. - MAGNESIUM BLD Follow up in 6 months for PE. Ayse Kumar PA-C documented in this encounterGerman Hospital04-27-2023 Miscellaneous Notes* Telephone Encounter - Lis Quevedo Ma - 11/04/2022 8:38 AM EDT Daughter was notified and will call back to schedule since patient doesn't speak guinean. Daughter was offered to schedule but declined due to working at moment. Daughter is aware that no refills will be given if not seen. Lis Quevedo Ma * Telephone Encounter - Marvel Collado MD - 11/03/2022 8:43 PM EDT Et patient know metformin was only sent in for 30 days. He was supposed to be seen for a routine f/u in September but never made an appt. Will need seen to continue getting refills. The following approved medication requests have been transmitted electronically. Requested Prescriptions Signed Prescriptions Disp Refills metFORMIN ER (GLUCOPHAGE XR) 500 mg 24 hr tablet 60 tablet 0 Sig: Take 2 tablets by mouth daily with breakfast. Authorizing Provider: MARVEL COLLADO MD * Telephone Encounter - Kinza Ohara RN - 11/03/2022 7:51 PM EDT patient is will be out of medication after tomorrow morning documented in this encounterGerman Hospital04-17-2023 Miscellaneous Notes* Telephone Encounter - Jarrett Fierro LPN - 2022 7:36 AM EDT This was refilled 09/28/22 Qty: 30 with 11 refills. Should have refills left. Jarrett Fierro LPN documented in this encounterGerman Hospital04-14-2023 History of Present illness Narrative* Chastity Liz APRN.CLINICAL PHLEBOTOMIST - 10/22/2022 4:32 PM EDT This note was created using [employer]. Subjective Jose Fierro is a 56 year old male. 56 year old male with PMH hyperlipidemia, anxiety presents for staple removal and back pain. Acute onset October 07 States that he fell. Struck his head. He went to [facility] and had x 5 maurisio placed in back of head. States that the wound has been doing good. Denies fever or chills. Denies drainage. He also states that the fall has exacerbated his right lower back Endorses history of same in past Starts right lower back and radiates down leg Denies saddle anesthesia, inability to ambulate. The history is provided by the patient. No american sign language teacher was used. Suture Removal This is a new problem. The current episode started more than 1 week ago. The problem occurs constantly. The problem has not changed since onset.Pertinent negatives include no chest pain, no abdominalpain, no headaches and no shortness of breath. Nothing aggravates the symptoms. Nothing relieves the symptoms. He has tried nothing for the symptoms. The treatment provided no relief. Back Pain This is a recurrent problem. The current episode started more than 1 week ago. The problem occurs constantly. The problem has not changed since onset.The pain is associated with falling. The pain is present in the lumbar spine. The quality of the pain is described as stabbing and aching. The pain radiates to the left thigh. The pain is at a severity of 6/10. The pain is moderate. The symptoms are aggravated by bending, twisting and certain positions. The pain is The same all the time. Stiffnessis present All day. Pertinent negatives include no chest pain, no fever, no numbness, no weight loss, no headaches, no abdominal pain, no abdominal swelling, no bowel incontinence, no perianal numbness, no bladder incontinence, no dysuria, no pelvic pain, no leg pain, no paresthesias, no paresis, no tingling and no weakness. He has tried nothing for the symptoms. Risk factors include obesity, poor posture and lack of exercise. PAST MEDICAL HISTORY Diagnosis Date Arthritis of both hands 10/26/2021 mod Arthritis of left knee 09/29/2015 Arthritis of neck 10/26/2021 Mod Cervical radiculopathy 11/01/2018 Elevated hemoglobin A1c 10/14/2015 Family history of rheumatoid arthritis 10/22/2021 father Hemorrhoids History of colonic polyps 01/20/2021 Impingement syndrome of shoulder region 11/01/2018 Mixed hyperlipidemia 05/21/2018 Obesity, Class II, BMI 35-39.9 09/29/2015 ZAHIDA (obstructive sleep apnea) 12/08/2016 AutoPAP 5-20 DME [facility] Plantar fasciitis 07/08/2017 Radius fracture Rosacea Severe anxiety with panic 05/15/2018 Well adult exam 03/23/2022 Last done: 03/23/2022 PAST SURGICAL HISTORY Procedure Laterality Date COLONOSCOPY 01/20/2022 repeat in 5 years COLONOSCOPY FLX DX W/COLLJ SPEC WHEN PFRMD 10/27/2015 Colonoscopy EGD W/O [facility] SPEC VARICIES INJ 01/20/2022 ALLERGIES Patient has no known allergies. MEDICATIONS sertraline (ZOLOFT) 50 mg tablet Take 1 tablet by mouth once daily. Zinc Gluconate 10 mg lozg Take 1 tablet by mouth once daily. MV with Jbj-Lilklyrt-Ngzjbj (CENTRUM SILVER) 0.4-300-250 mg-mcg-mcg tab Take 1 tablet by mouth oncedaily. B Complex-Folic Acid (B COMPLEX 1, WITH FOLIC ACID,) 0.4 mg tab Take 1 tablet by mouth once daily. omega-3 fatty acids 1,000 mg cap Take 2 capsules by mouth once daily. CPAP AutoPAP 5-20 cmH2O, suitable mask, humidity, filters. Lifetime supplies. Dx: G47.33 cyclobenzaprine (FLEXERIL) 10 mg tablet Take 1 tablet by mouth three times daily as needed for muscle spasm. metFORMIN ER (GLUCOPHAGE XR) 500 mg 24 hr tablet Take 2 tablets by mouth daily with breakfast. erythromycin base 250 mg tablet Take 1 tablet by mouth once daily. blood sugar diagnostic (BLOOD GLUCOSE TEST) test strip Test blood sugar(s) 1 times daily. Dx: Type 2 DM - Uncontrolled E11.65 Insulin: No (Patient not taking: Reported on 10/22/2022) Lancets lancets Test blood sugar(s) 1 times daily. Dx: Type 2 DM - Uncontrolled E11.65 Insulin: No FAMILY HISTORY Problem Relation Age of Onset Stroke Mother Coronary Artery Disease Father Colon Cancer Father other (rheumatoid arthritis) Father Hypertension Sister Diabetes Brother from diabetic coma Lipids Brother Social History Tobacco Use Smoking status: Never Smokeless tobacco: Never Substance Use Topics Alcohol use: No Drug use: Never Review of Systems Constitutional: Negative for appetite change, chills, fever and weight loss. Eyes: Negative for pain, discharge, redness and itching. Respiratory: Negative for apnea, choking, chest tightness and shortness of breath. Cardiovascular: Negative for chest pain. Gastrointestinal: Negative for abdominal pain and bowel incontinence. Genitourinary: Negative for bladder incontinence, dysuria and pelvic pain. Musculoskeletal: Positive for back pain. Skin: Positive for wound. Allergic/Immunologic: Negative for environmental allergies, food allergies and immunocompromised state. Neurological: Negative for tingling, weakness, numbness, headaches and paresthesias. Hematological: Negative for adenopathy. Does not bruise/bleed easily. Psychiatric/Behavioral: Negative for agitation and behavioral problems. Objective BP 148/82 Pulse 90 Temp 36.7 C (98.1 F) (Tympanic) Resp 16 Wt 96.3 kg (212 lb 6.4 oz) SpO2 97% BMI 34.81 kg/m Physical Exam Vitals and nursing note reviewed. Constitutional: General: He is not in acute distress. Appearance: Normal appearance. He is not ill-appearing, toxic-appearing or diaphoretic. HENT: Head: Normocephalic and atraumatic. Right Ear: External ear normal. Left Ear: External ear normal. Nose: Nose normal. No congestion or rhinorrhea. Mouth/Throat: Mouth: Mucous membranes are moist. Pharynx: Oropharynx is clear. No oropharyngeal exudate or posterior oropharyngeal erythema. Eyes: General: Right eye: No discharge. Left eye: No discharge. Extraocular Movements: Extraocular movements intact. Conjunctiva/sclera: Conjunctivae normal. Pupils: Pupils are equal, round, and reactive to light. Cardiovascular: Rate and Rhythm: Normal rate and regular rhythm. Pulses: Normal pulses. Heart sounds: Normal heart sounds. No murmur heard. No friction rub. No gallop. Pulmonary: Effort: Pulmonary effort is normal. No respiratory distress. Breath sounds: Normal breath sounds. No stridor. No wheezing, rhonchi or rales. Chest: Chest wall: No tenderness. Abdominal: General: Abdomen is flat. There is no distension. Palpations: Abdomen is soft. There is no mass. Tenderness: There is no abdominal tenderness. There is no guarding or rebound. Hernia: No hernia is present. Musculoskeletal: General: Tenderness present. No swelling, deformity or signs of injury. Normal range of motion. Cervical back: Normal range of motion and neck supple. No rigidity or tenderness. Right lower leg: No edema. Left lower leg: No edema. Comments: +left SI joint TTP +straight leg raise +neuro +sensation Ambulatory in exam room. Lymphadenopathy: Cervical: No cervical adenopathy. Skin: General: Skin is warm and dry. Capillary Refill: Capillary refill takes less than 2 seconds. Coloration: Skin is not jaundiced or pale. Findings: No bruising, lesion or rash. Comments: Posterior scalp with x 5 maurisio noted. No crepitus. No drainage. X 5 maurisio removed without incident Neurological: General: No focal deficit present. Mental Status: He is alert and oriented to person, place, and time. Cranial Nerves: No cranial nerve deficit. Sensory: No sensory deficit. Motor: No weakness. Coordination: Coordination normal. Gait: Gait normal. Deep Tendon Reflexes: Reflexes normal. Psychiatric: Mood and Affect: Mood normal. Behavior: Behavior normal. Thought Content: Thought content normal. Assessment and Plan ASSESSMENT/PLAN: 1. Visit for wound check - ICD9: V58.89, ICD10: Z51.89 (primary diagnosis) X 5 maurisio in posterior scalp one week ago Wound looks good Staple removed Tolerated Discussed wound care. 2. Lumbar radiculopathy - ICD9: 724.4, ICD10: M54.16 Sciatica - Warm moist heat for 20 min three times a day - Muscle relaxant- see orders - Patient given instructions use of medications as ordered, intermittent rest, back care exercise program, weight loss, improved posture, proper lifting techniques, intermittent use of heat, and avoiding sleeping on a heating pad - Follow up in 3 days or sooner if symptoms persist or worsen Chastity Liz APRN.[place] documented in this encounterGerman Hospital04-06-2023 History of Present illness Narrative* Marian Lacey MA - 10/14/2022 1:09 PM EDT Scan on 10/09/2022 2:55 AM by External Provider: Consultation - Emergency Medicine Marian Lacey MA documented in this encounterGerman Hospital03-21-2023 Miscellaneous Notes* Telephone Encounter - Natalie Cantu LPN - 09/28/2022 3:17 PM EDT Patient has been identified by name and date of : Yes Patient phones for refill(s): Requested Prescriptions Pending Prescriptions Disp Refills sertraline (ZOLOFT) 50 mg tablet 30 tablet 11 Sig: Take 1 tablet by mouth once daily. Date of last office visit in primary care: 03/23/2022 Please advise. Thank you. Natalie Cantu LPN documented in this encounterGerman Hospital09-15-2022 Miscellaneous Notes* Telephone Encounter - Ayse Kumar PA-C - 03/25/2022 11:29 AM EDT The following approved medication requests have been transmitted electronically. Requested Prescriptions Signed Prescriptions Disp Refills metFORMIN ER (GLUCOPHAGE XR) 500 mg 24 hr tablet 180 tablet 1 Sig: Take 2 tablets by mouth daily with breakfast. Authorizing Provider: AYSE KUMAR PA-C * Telephone Encounter - Jarrett Fierro LPN - 03/24/2022 3:14 PM EDT Spoke with pt's daughter. She states pt will take medication twice daily. Ok to send to [facility]. Jarrett Fierro LPN * Telephone Encounter - Ayse Kumar PA-C - 03/24/2022 3:00 PM EDT Can increase to twice a day. Is he willing? We don't have diagnosis of diabetes just prediabetes in his records. So I don't see where dr. Hnason officially diagnosed diabetes. But he has been prediabetic with borderline a1cs for the past 4years. Ayse Kumar PA-C * Telephone Encounter - Jarrett Fierro LPN - 03/24/2022 2:22 PM EDT Spoke with pt's daughter. Reviewed results and instructions. States pt was diagnosed in the past with Type 2 diabetes. Pt is taking Metformin 500 mg 1 tablet daily. Pt is not on insulin and has not been on in the past. She thinks Dr Livingston had started pt on the metformin. Advised daughter would contact her back after review by Ayse. Jarrett Fierro LPN * Telephone Encounter - Ayse Kumar PA-C - 03/24/2022 1:48 PM EDT Let patient know that his a1c is up to 6.3%. this is getting worse. Previous was 5.9. We consider diabetes at 6.5%. could consider starting low dose metformin to help, or patient can work harder on his diet. Which does he prefer? His cholesterol has slightly worsened as well. PSA level is normal. Metabolic level is normal. Urine okay. Thanks. Ayse Kumar PA-C documented in this encounterGerman Hospital09-13-2022 Instructions* Patient Instructions* Marvel Collado MD - 03/23/2022 8:19 AM EDT Consider getting the shingrix vaccine for the prevention of shingles. Check with insurance to see if covered. Please get a bar of zest soap and place at the bottom of your bed past your feet to see if this helps lesson the leg cramps. I advise patient's to put a new one in every 6 months. You can take tylenol arthritis 650 mg 1-2 tabs up to three times a day (about every 8 hrs) as needed for arthritic pain. documented in this encounterGerman Hospital09-13-2022 History of Present illness Narrative* Marvel Collado MD - 03/23/2022 8:04 AM EDT Chief Complaint Patient presents with: Physical HPI Jose Fierro is a 56 year old male who presents here today for Above Complaints. and Chronic Medical Conditions.. Patient with Hx of hyperlipidemia, anxiety, elevated A1c, ZAHIDA on CPAP, Obesity, rosacea, arthritis as well as those reviewed and addressed below and in ROS. Patient has been doing well. Wearing CPAP at night. Patient not getting as good of response with the metro gel as he had in the past with oral antibiotics for his rosacea. Was on erythromycin and would like to go back to this. Patient has 4-6 normal soft BM's a day. Sometimes has some pain with them that may resolve 30-60 min after the BM. No blood . He had a colonoscopy back in January that was unremarkable except for internal hemorrhoids. Some nights has leg cramps. Has worked on some weight loss and had lost some weight and then put some back on. FBS have been running around 130. C/o some spots in vision but has not been to his eye provider yet this year. Past medical history, appointments, medications, allergies reviewed. Previous Medical History PAST MEDICAL HISTORY Diagnosis Date Arthritis of both hands 10/26/2021 mod Arthritis of left knee 09/29/2015 Arthritis of neck 10/26/2021 Mod Cervical radiculopathy 11/01/2018 Diabetes mellitus type 2, uncontrolled, without complications 08/03/2018 Elevated hemoglobin A1c 10/14/2015 Family history of rheumatoid arthritis 10/22/2021 father Hemorrhoids History of colonic polyps 01/20/2021 Impaired fasting glucose 10/14/2015 Impingement syndrome of shoulder region 11/01/2018 Mixed hyperlipidemia 05/21/2018 Obesity, Class II, BMI 35-39.9 09/29/2015 ZAHIDA (obstructive sleep apnea) 12/08/2016 AutoPAP 5-20 DME [facility] Plantar fasciitis 07/08/2017 Radius fracture Rosacea Severe anxiety with panic 05/15/2018 Previous Surgical History PAST SURGICAL HISTORY Procedure Laterality Date COLONOSCOPY 01/20/2022 repeat in 5 years COLONOSCOPY FLX DX W/COLLJ SPEC WHEN PFRMD 10/27/2015 Colonoscopy EGD W/O [facility] SPEC VARICIES INJ 01/20/2022 Family History FAMILY HISTORY Problem Relation Age of Onset Stroke Mother Coronary Artery Disease Father Colon Cancer Father other (rheumatoid arthritis) Father Hypertension Sister Diabetes Brother from diabetic coma Lipids Brother Patient Allergies ALLERGIES No Known Allergies Current Medications Current Outpatient Medications on File Prior to Visit Medication Sig peg 3350-Electrolytes (GOLYTELY) 236-22.74-6.74 -5.86 gram suspension Refer to printed prep instructions from your provider. metFORMIN ER (GLUCOPHAGE XR) 500 mg 24 hr tablet Take 1 tablet by mouth daily with breakfast. Zinc Gluconate 10 mg lozg Take 1 tablet by mouth once daily. MV with Yjd-Gfisekxd-Byzlct (CENTRUM SILVER) 0.4-300-250 mg-mcg-mcg tab Take 1 tablet by mouth oncedaily. B Complex-Folic Acid (B COMPLEX 1, WITH FOLIC ACID,) 0.4 mg tab Take 1 tablet by mouth once daily. omega-3 fatty acids 1,000 mg cap Take 2 capsules by mouth once daily. sertraline (ZOLOFT) 50 mg tablet Take 1 tablet by mouth once daily. (Patient taking differently: Take 50 mg by mouth once daily. Patients indicated that he does not take all the time and only at night time. ) metroNIDAZOLE 1 % gel Apply 1 application to affected area once daily. Location: face blood sugar diagnostic (BLOOD GLUCOSE TEST) test strip Test blood sugar(s) 1 times daily. Dx: Type 2 DM - Uncontrolled E11.65 Insulin: No Lancets lancets Test blood sugar(s) 1 times daily. Dx: Type 2 DM - Uncontrolled E11.65 Insulin: No CPAP AutoPAP 5-20 cmH2O, suitable mask, humidity, filters. Lifetime supplies. Dx: G47.33 No current facility-administered medications on file prior to visit. Social History Social History Tobacco Use Smoking status: Never Smokeless tobacco: Never Substance Use Topics Alcohol use: No Drug use: Never Review of Symptoms REVIEW OF SYSTEMS GENERAL: No weight loss, malaise or fevers HEENT: Negative for frequent or significant headaches. Some decreased hearing. See HPI. no nose bleeds or other nasal problems NECK: Negative for lumps, goiter, pain and significant neck swelling RESPIRATORY: Negative for cough, hemoptysis, wheezing, COPD, dyspnea or shortness of breath CARDIOVASCULAR: Negative for chest pain, leg swelling, hypertension, CHF or palpitations GI: No nausea, vomiting, or diarrhea, No heartburn or reflux symptoms, and on occasion will have blood in his stool (has hemorrhoids) : No history of dysuria, blood MUSCULOSKELETAL: c/o some leg cramps at night. SKIN: Negative for lesions, rash, and itching PSYCH: anxiety control with zoloft HEMATOLOGY/LYMPHOLOGY: Negative for prolonged bleeding, bruising easily or swollen nodes ENDOCRINE: Negative for cold or heat intolerance, polyuria, polydipsia and goiter NEURO: No history of headaches, syncope, paralysis, seizures or tremors EXAM: BP 128/76 Pulse 74 Resp 16 Ht 166.4 cm (5' 5.5) Wt 97.5 kg (215 lb) BMI 35.23 kg/m Last 5 Encounter Wt Readings: Date: Wt: 03/23/2022 97.5 kg (215 lb) 10/22/2021 92.5 kg (204 lb) 08/28/2019 103.4 kg (228 lb) 08/20/2019 102.5 kg (226 lb) 06/18/2019 101.6 kg (224 lb) General Appearance: Well appearing, alert, in no acute distress, well-hydrated, well nourished. andObese. Skin: Skin color, texture, turgor normal, no suspicious rashes or lesions. Head: Normocephalic, no masses, lesions, tenderness or abnormalities. Eyes: Anicteric sclera. Pupils are equally round and reactive to light. Extraocular movements are intact. . Ears: External ears, TM's normal, canals clear. Neck: Supple, no adenopathy; thyroid symmetric, normal size, no bruits. Lungs: Lungs clear to auscultation. No wheezing, rhonchi, rales.. Heart: RRR without murmur, gallop, or rubs. No ectopy. Abdomen: Normal abdominal exam, Abdomen soft, non-tender. Bowel sounds normal. No masses, organomegaly. Extremities: No deformities, edema, skin discoloration, Good capillary refill. . Musculoskeletal: Muscular strength intact, No joint swelling, deformity, or tenderness. Peripheral Pulses: Normal. Neurologic: Gait normal. Reflexes normal and symmetric. Sensation to light touch and crainal nerves2-12 intact.. Genitalia: Normal. Rectal: Normal exam. Health Maintenance List HEPATITIS B(1 of 3 - 3-dose series) Never done SHINGRIX VACCINE(1 of 2) Never done PROSTATE CANCER SCREENING DISCUSSION due on 12/15/2018 INFLUENZA(1) due on 03/11/2022 PNEUMOCOCCAL(1 - PCV) due on 01/08/2030 HBA1C due on 04/25/2022 ANNUAL PCP TEAM CHRONIC DISEASE VISIT due on 10/22/2022 LDL CHOLESTEROL due on 10/24/2022 COLORECTAL CANCER SCREENING due on 01/20/2027 DTAP,TDAP,TD(2 - Td or Tdap) due on 12/09/2027 HEPATITIS C SCREENING Completed HIV SCREENING Completed COVID-19 VACCINE Completed URINE ALBUMIN:CREATININE RATIO Discontinued DILATED RETINAL EXAM Discontinued DIABETIC FOOT EXAM Discontinued DEPRESSION SCREENING Discontinued Data reviewed Component Latest Ref Rng & Units 10/24/2021 WBC 3.70 - 11.00 k/uL 6.94 RBC 4.20 - 6.00 m/uL 4.50 Hemoglobin 13.0 - 17.0 g/dL 13.5 Hematocrit 39.0 - 51.0 % 41.2 MCV 80.0 - 100.0 fL 91.6 MCH 26.0 - 34.0 pg 30.0 MCHC 30.5 - 36.0 g/dL 32.8 RDW-CV 11.5 - 15.0 % 12.9 Platelet Count 150 - 400 k/uL 286 MPV 9.0 - 12.7 fL 10.4 Neut% % 69.8 Abs Neut (ANC) 1.45 - 7.50 k/uL 4.84 Lymph% % 19.3 Abs Lymph 1.00 - 4.00 k/uL 1.34 Fajardo% % 7.6 Abs Fajardo <0.87 k/uL 0.53 Eosin% % 2.4 Abs Eosin <0.46 k/uL 0.17 Baso% % 0.6 Abs Baso <0.11 k/uL 0.04 Immature Gran % % 0.3 IMMATURE GRANS (ABS) <0.10 k/uL <0.03 NRBC /100 WBC 0.0 Absolute nRBC <0.01 k/uL <0.01 DTYPE Auto Protein, Total 6.3 - 8.0 g/dL 7.1 Albumin 3.9 - 4.9 g/dL 4.0 Calcium 8.5 - 10.2 mg/dL 9.0 Bilirubin, Total 0.2 - 1.3 mg/dL <0.2 (L) Alkaline Phosphatase 38 - 113 U/L 79 AST 14 - 40 U/L 20 ALT 10 - 54 U/L 13 Glucose 74 - 99 mg/dL 103 (H) BUN 9 - 24 mg/dL 20 Creatinine 0.73 - 1.22 mg/dL 0.75 Sodium 136 - 144 mmol/L 143 Potassium 3.7 - 5.1 mmol/L 4.1 Chloride 97 - 105 mmol/L 107 (H) CO2 22 - 30 mmol/L 23 Anion Gap 9 - 18 mmol/L 13 eGFR >=60 mL/min/1.73m 105 Color Yellow Yellow Clarity Clear Slightly Cloudy (A) Glucose, Urine Negative Negative Bilirubin, Urine Negative Negative Ketones, Urine Negative Negative Specific [place], Ur 1.005 - 1.030 1.024 Hemoglobin/Blood,Ur Negative Negative pH, Urine 5.0 - 8.0 5.0 Protein, Urine Negative Negative Urobilinogen Negative Negative Nitrites Negative Negative Leukest Negative Negative WBC, Urine 0-5 /HPF 0-5 /HPF RBC, Urine 0-3 /HPF 0-3 /HPF Epithelial Cells /HPF Few Calcium Oxalate Crystals None Seen /HPF Few (A) Total Cholesterol, Nonfasting <200 mg/dL 182 Triglycerides, Nonfasting <150 mg/dL 70 HDL Cholesterol, Nonfasting >39 mg/dL 56 LDL Cholesterol, Nonfasting <100 mg/dL 112 (H) Non HDL Cholesterol, Nonfasting <130 mg/dL 126 VLDL Cholesterol, Nonfasting <30 mg/dL 14 Total Chol/HDL Ratio, Nonfasting <5.10 mg/dL 3.25 LDL/HDL Ratio, Nonfasting <2.54 mg/dL 2.00 HIV 12 Combo (Ag/Ab) Nonreactive Nonreactive HIV 1/2 Ab HIV Interpretation Hemoglobin A1C 4.3 - 5.6 % 5.9 (H) Estimated Average Glucose mg/dL 123 Hep C Antibody IA Negative Negative A/P ASSESSMENT/PLAN: 1. Well adult exam - ICD9: V70.0, ICD10: Z00.00 (primary diagnosis) - Counseled on healthy diet and regular exercise - Discussed need for and benefit of weight loss. BMI 35.23 kg/(m^2) - Follow up for annual exam in one year - advised patient to see optho and discuss spots in vision at times. - advised on tylenol arthritis for his hand pains as needed. 2. Mixed hyperlipidemia - ICD9: 272.2, ICD10: E78.2 - to be determined upon return of lab results - Encouraged following a low fat, low cholesterol diet. - Discussed the benefits of regular aerobic exercise and weight loss. - Encouraged following a low carbohydrate, healthy oil intake diet. Check - COMP METABOLIC PANEL - URINALYSIS, WITH MICROSCOPIC - LIPID PANEL, NONFASTING 3. Elevated hemoglobin A1c - ICD9: 790.29, ICD10: R73.09 Check - COMP METABOLIC PANEL - HGB A1C 4. Severe anxiety with panic - ICD9: 300.01, ICD10: F41.0 - controlled with zoloft 5. ZAHIDA (obstructive sleep apnea) - ICD9: 327.23, ICD10: G47.33 - wearing CPAP nightly with benefit. 6. Obesity, Class II, BMI 35-39.9 - ICD9: 278.00, ICD10: E66.9 Weight increasing - Behavioral intervention 7. Screening for prostate cancer - ICD9: V76.44, ICD10: Z12.5 Check - PSA/PROSTSPECAG DIAG 8. Medication management - ICD9: V58.69, ICD10: Z79.899 Check - CBC + DIFF 9. Leg cramps - ICD9: 729.82, ICD10: R25.2 - advised on use of a zest soap bar at the end of his bed. 10. Rosacea - ICD9: 695.3, ICD10: L71.[address] on erythromycin 250 mg a day. Requested Prescriptions Signed Prescriptions Disp Refills erythromycin base 250 mg tablet 30 tablet 11 Sig: Take 1 tablet by mouth once daily. F/u in 6 months routine Marvel Collado MD documented in this encounterGerman [facility]07-13-[facility]22 Nurse Note* Betty Ivy RN - 01/20/2022 8:03 AM EDT Patient received in PACU, on left side, resting comfortably, respirations regular and unlabored, Eyes open to verbal stimuli, answers questions, denies pain or nausea, abdomen soft and non distended. documented in this encounterGerman Hospital07-13-2022 Miscellaneous Notes* Telephone Encounter - Deisi Lai MA - 01/20/2022 7:49 AM EDT Please see [employer] message 01/19. Gen Surg dept./PCP addressed. Deisi Lai MA * Telephone Encounter - Marian Lacey MA - 01/18/2022 11:40 AM EDT Spoke with daughter and she had questions regarding prep. Will this cause this sugar to drop? Also can he be prescribed something for nausea while taking the prep? I told daughter I would forward to that department for further instructions. Patient is scheduled 01/20. Marian Lacey MA * Telephone Encounter - Marvel Collado MD - 01/18/2022 9:33 AM EDT None of his meds need stopped unless Dr. Alejandre advised not to take the morning of the procedure. He is not on any insuline so that is not an issue. * Telephone Encounter - Rhianna Arce RN - 01/18/2022 8:48 AM EDT Pt's daughter called in and reports Pt is having a Colonoscopy and Endoscopy on 01/20/22. She statesthat her her father was never told how to take the prep or what medications to stop. Sent the Instructions to the Pt through [employer] for prep from off the appointment and from Pt summary information from Dr Willoughby's distance health visit. Pts daughter would also like to talk with the provider about what medications need to be stopped and when, she states the Pt is diabetic. Please call and advise. documented in this encounterGerman Hospital07-13-2022 History and physical note * Kendy Larkin MD - 01/20/2022 7:30 AM EDT UPDATED PROCEDURAL SEDATION HISTORY AND PHYSICAL EXAMINATION SERVICE DATE: 01/20/2022 SERVICE TIME: 7:13 PHYSICAL EXAM MUST BE COMPLETED ON ADMISSION PROCEDURE: EGD and colonoscopy, possible biopsies Procedure Indications: acid reflux, family history of colon cancer The History and Physical (completed in the past 30 days) has been reviewed and the patient has beenexamined. The contents accurately reflect the patient's condition with the following additions or revisions since the H&P was completed. ASA Class: ASA Class:: Patient with mild systemic disease Examination indicates no changes. AIRWAY: Airway Visualization of Uvula: Yes Mouth opening greater than 2 fingerbreadths: Yes Neck Full Range of Motion: Yes LUNGS: Lungs clear to auscultation CARDIAC: Regular rhythm,Regular rate Provisional Diagnosis/Treatment Plan: EGD and colonoscopy, possible biopsies SEDATION GOAL: Moderate This H&P can be found in the Electronic Medical Record. SIGNATURE: Kendy Larkin MD PATIENT NAME: Jose Fierro DATE: January 20, 2022 TIME: 7:14 AM * Kendy Larkin MD - 01/20/2022 7:30 AM EDT Jose Fierro 1965 REFERRING PHYSICIAN: Dr. Collado CHIEF COMPLAINT: Heartburn-like symptoms, constipation HPI: The patient is a 56 year old male referred for endoscopy. Jose notes the following GI complaints: Jose . Jose denies diarrhea. Jose denies constipation. Jose denies a change in bowel habits. Jose denies melena. Jose denies bright red blood per rectum. Jose notes hemorrhoids. He states he will have 4-5 bowel movements per day. He does note at times heartburn-like issues in the upper abdomen after bowel movements. The patient notes heartburn-like symptoms but denies dysphagia. Jose has undergone prior endoscopy. He underwent colonoscopy 5 years previously demonstrated 4 small rectal polyps which returned as hyperplastic polyps. He has a family history of colon cancer with his father being diagnosed. PAST MEDICAL HISTORY PAST MEDICAL HISTORY Diagnosis Date Arthritis of both hands 10/26/2021 mod Arthritis of left knee 09/29/2015 Arthritis of neck 10/26/2021 Mod Cervical radiculopathy 11/01/2018 Diabetes mellitus type 2, uncontrolled, without complications 08/03/2018 Elevated hemoglobin A1c 10/14/2015 Family history of rheumatoid arthritis 10/22/2021 father Hemorrhoids History of colonic polyps 01/20/2021 Impaired fasting glucose 10/14/2015 Impingement syndrome of shoulder region 11/01/2018 Mixed hyperlipidemia 05/21/2018 Obesity, Class II, BMI 35-39.9 09/29/2015 ZAHIDA (obstructive sleep apnea) 12/08/2016 AutoPAP 5-20 DME [facility] Plantar fasciitis 07/08/2017 Radius fracture Rosacea Severe anxiety with panic 05/15/2018 PAST SURGICAL HISTORY PAST SURGICAL HISTORY Procedure Laterality Date COLONOSCOPY FLX DX W/COLLJ SPEC WHEN PFRMD 10/27/15 Colonoscopy CURRENT MEDICATIONS Current Outpatient Medications Medication Sig peg 3350-Electrolytes (GOLYTELY) 236-22.74-6.74 -5.86 gram suspension Refer to printed prep instructions from your provider. metFORMIN ER (GLUCOPHAGE XR) 500 mg 24 hr tablet Take 1 tablet by mouth daily with breakfast. Zinc Gluconate 10 mg lozg Take 1 tablet by mouth once daily. MV with Sli-Roqdndsu-Gkjxbj (CENTRUM SILVER) 0.4-300-250 mg-mcg-mcg tab Take 1 tablet by mouth oncedaily. B Complex-Folic Acid (B COMPLEX 1, WITH FOLIC ACID,) 0.4 mg tab Take 1 tablet by mouth once daily. omega-3 fatty acids 1,000 mg cap Take 2 capsules by mouth once daily. sertraline (ZOLOFT) 50 mg tablet Take 1 tablet by mouth once daily. (Patient taking differently: Take 50 mg by mouth once daily. Patients indicated that he does not take all the time and only at night time. ) metroNIDAZOLE 1 % gel Apply 1 application to affected area once daily. Location: face blood sugar diagnostic (BLOOD GLUCOSE TEST) test strip Test blood sugar(s) 1 times daily. Dx: Type 2 DM - Uncontrolled E11.65 Insulin: No Lancets lancets Test blood sugar(s) 1 times daily. Dx: Type 2 DM - Uncontrolled E11.65 Insulin: No CPAP AutoPAP 5-20 cmH2O, suitable mask, humidity, filters. Lifetime supplies. Dx: G47.33 No current facility-administered medications for this visit. ALLERGIES: Patient has no known allergies. PERSONAL HISTORY: SOCIAL HISTORY Social History Tobacco Use Smoking status: Never Smoker Smokeless tobacco: Never Used Substance Use Topics Alcohol use: No Drug use: Not on file FAMILY HISTORY: FAMILY HISTORY FAMILY HISTORY Problem Relation Age of Onset Stroke Mother Coronary Artery Disease Father Colon Cancer Father other (rheumatoid arthritis) Father Hypertension Sister Diabetes Brother from diabetic coma Lipids Brother REVIEW OF SYMPTOMS: negative except as noted above Physical examination: Vital signs in chart, reviewed and noted by me General WD/WN M in no apparent distress, alert and oriented Head Normocephalic. EOM intact with sclera clear. Mouth with mucus membranes moist. Neck - supple with no jugular venous distention noted. Trachea is midline. Lungs clear to auscultation. Normal breath sounds. No rales/rhonchi/wheezing noted. Heart normal heart sounds. No rubs/clicks/murmurs noted. Regular rate. Abdomen soft and benign. Extremities no pitting edema noted. Skin Normal skin integrity. Neurological non focal Psych calm and appropriate Impression: acid reflux, family history of colon cancer Discussion/Plan/Recommendations: I have discussed the above with the patient. I have offered colonoscopy and EGD, possible biopsies I have explained the procedure to the patient. I have counseled the patient as to the risks of the procedure, including but not limited to: infection, bleeding, injury to any intrabdominal organs such as liver/spleen, perforation of the GI tract,inability to complete the procedure, complications of anesthesia, etc. the patient understands. The patient was offered a surgery/procedure at a [facility] facility. The provider and patient have discussed in detail the risk of exposure to and/or potential harm posed by the COVID-19 viruswith having a surgery/procedure at this time versus the risk of delaying the surgery/procedure. It is not possible to know either the risk of delaying the surgery or procedure or chance of getting aninfection with perfect accuracy, but a joint decision was made between the patient and the providerto proceed at this time with the scheduled surgery/procedure. The patient wishes to proceed. I have answered all questions to the patient s satisfaction and the patient has no further questions. documented in this encounterGerman Hospital07-12-2022 Miscellaneous Notes* Telephone Encounter - Radha Cesar LPN - 01/19/2022 10:56 AM EDT Pt's daughter is calling to check on this message. Dr. Collado is out for the rest of the day and question needs addressed today. Ok to reply through . Radha Cesar LPN * Telephone Encounter - Jarrett Fierro LPN - 01/19/2022 9:50 AM EDT Please see pt's message. Jarrett Fierro LPN documented in this encounterGerman Hospital04-27-2022 Miscellaneous Notes* Telephone Encounter - Jarrett Fierro LPN - 11/04/2021 2:10 PM EDT Message routed to JAMEL vega as alma delia. Jarrett Fierro LPN * Telephone Encounter - Ayse Kumar PA-C - 11/04/2021 2:01 PM EDT Will send in ointment. The following approved medication requests have been transmitted electronically. Signed Prescriptions Disp Refills acyclovir (ZOVIRAX) 5 % ointment 5 g 5 Sig: Apply to affected area five times daily for 4 days. Authorizing Provider: AYSE KUMAR PA-C * Telephone Encounter - Katelyn Briseno LPN - 11/03/2021 3:56 PM EDT Images from the original note were not included. Acyclovir 5% cream is not covered by insurance. Stating below is preferred: Can rx be changed to one of the above? Tiwari- [id number] Ghislaine Briseno LPN documented in this encounterGerman Hospital04-16-2022 History of Present illness Narrative* Jennifer Sullivan, RT(R) - 10/24/2021 8:00 AM EDT Radiology Service Progress Note PATIENT NAME: Jose Fierro DATE OF SERVICE: October 24, 2021 TIME: 8:01 AM PATIENT IDENTITY VERIFICATION COMPLETED USING TWO (2) IDENTIFIERS: Name and Date of confirmedby patient verbally. Patient was offered our interpreting services however he declined and asked touse his daughter to translate via speaker phone. Daughter translated through out imaging via phone. FALL SCREENING: Has the patient had 2 falls in the last year or 1 fall with injury or currently using an Ambulatory Assistive Device (Walker, Cane, Wheelchair, Crutches, etc.)? No PATIENT GENDER DATA: Male PATIENT RELEVANT IMPLANT DATA REVIEWED: Yes RADIOLOGY DEPARTMENT: General X-ray: Exam(s) Completed: Spine X-Ray(s): Cervical AP / LAT / OBL Upper Extremity X-Ray(s): Hand, bilateral PERIPHERAL IV DATA: Not applicable SIGNED BY: RT Edward(R) October 24, 2021 8:01 AM documented in this encounterGerman Hospital03-21-2022 Miscellaneous Notes* Telephone Encounter - Marvel Collado MD - 09/28/2021 4:45 PM EDT The following approved medication requests have been transmitted electronically. Signed Prescriptions Disp Refills metFORMIN ER (GLUCOPHAGE XR) 500 mg 24 hr tablet 90 tablet 1 Sig: Take 1 tablet by mouth daily with breakfast. ALOK: No Authorizing Provider: MARVEL COLLADO MD * Telephone Encounter - Shruti Johnson Ma - 09/28/2021 4:09 PM EDT MIRELA 07/2020 NOV 04/07/22 Shruti Johnson Ma * Telephone Encounter - Sussy Rodriguez - 09/28/2021 4:01 PM EDT Patient's daughter called to check on status of refill. Said patient has been out of medication fora few days. Please advise at [phone] if/when sent to pharmacy. * Telephone Encounter - Faith Rodriguez - 09/25/2021 12:52 PM EDT Patient is out of medication and needs as soon as possible. Worried that if he does not take it what could happen. Faith Rodriguez' documented in this encounterGerman Hospital12-29-2017 History of Past illness Narrative* Problem Noted Date Resolved Date Helicobacter pylori gastritis 07/08/2017 Nasal congestion 12/08/2016 05/15/2018 documented as of this encounter (statuses as of 09/28/2021) [facility] Narrative* Problem Noted Date Resolved Date Helicobacter pylori gastritis 07/08/2017 Nasal congestion 12/08/2016 05/15/2018 documented as of this encounter (statuses as of 11/05/2021) [facility] Narrative* Problem Noted Date Resolved Date Helicobacter pylori gastritis 07/08/2017 Nasal congestion 12/08/2016 05/15/2018 documented as of this encounter (statuses as of 01/19/2022) [facility] Narrative* Problem Noted Date Resolved Date Helicobacter pylori gastritis 07/08/2017 Nasal congestion 12/08/2016 05/15/2018 documented as of this encounter (statuses as of 01/20/2022) [facility] Narrative* Problem Noted Date Resolved Date Helicobacter pylori gastritis 07/08/2017 Nasal congestion 12/08/2016 05/15/2018 documented as of this encounter (statuses as of 01/21/2022) [facility] Narrative* Problem Noted Date Resolved Date Helicobacter pylori gastritis 07/08/2017 Nasal congestion 12/08/2016 05/15/2018 documented as of this encounter (statuses as of 03/23/2022) [facility] Narrative* Problem Noted Date Resolved Date Helicobacter pylori gastritis 07/08/2017 Nasal congestion 12/08/2016 05/15/2018 documented as of this encounter (statuses as of 03/25/2022) [facility] Narrative* Problem Noted Date Resolved Date Helicobacter pylori gastritis 07/08/2017 Nasal congestion 12/08/2016 05/15/2018 documented as of this encounter (statuses as of 09/28/2022) [facility] Narrative* Problem Noted Date Resolved Date Helicobacter pylori gastritis 07/08/2017 Nasal congestion 12/08/2016 05/15/2018 documented as of this encounter (statuses as of 10/15/2022) [facility] Narrative* Problem Noted Date Resolved Date Helicobacter pylori gastritis 07/08/2017 Nasal congestion 12/08/2016 05/15/2018 documented as of this encounter (statuses as of 10/23/2022) [facility] Narrative* Problem Noted Date Resolved Date Helicobacter pylori gastritis 07/08/2017 Nasal congestion 12/08/2016 05/15/2018 documented as of this encounter (statuses as of 2022) [facility] Narrative* Problem Noted Date Resolved Date Helicobacter pylori gastritis 07/08/2017 Nasal congestion 12/08/2016 05/15/2018 documented as of this encounter (statuses as of 11/04/2022) [facility] Narrative* Problem Noted Date Resolved Date Helicobacter pylori gastritis 07/08/2017 Nasal congestion 12/08/2016 05/15/2018 documented as of this encounter (statuses as of 11/04/2022) [facility] Narrative* Problem Noted Date Resolved Date Helicobacter pylori gastritis 07/08/2017 Nasal congestion 12/08/2016 05/15/2018 documented as of this encounter (statuses as of 12/13/2022) [facility]ative* Problem Noted Date Resolved Date Helicobacter pylori gastritis 07/08/2017 Nasal congestion 12/08/2016 05/15/2018 documented as of this encounter (statuses as of 12/14/2022) [facility] N[facility]ative* Problem Noted Date Diagnosed Date Resolved Date Helicobacter pylori gastritis 07/08/2017 05/15/2018 Nasal congestion 12/08/2016 05/15/2018 documented as of this encounter (statuses as of 05/29/2023) [facility] N[facility]ative* Problem Noted Date Diagnosed Date Resolved Date Helicobacter pylori gastritis 07/08/2017 05/15/2018 Nasal congestion 12/08/2016 05/15/2018 documented as of this encounter (statuses as of 05/30/2023) [facility] N[facility]ative* Problem Noted Date Diagnosed Date Resolved Date Helicobacter pylori gastritis 07/08/2017 05/15/2018 Nasal congestion 12/08/2016 05/15/2018 documented as of this encounter (statuses as of 05/31/2023) [facility] Narrative* Problem Noted Date Diagnosed Date Resolved Date Helicobacter pylori gastritis 07/08/2017 05/15/2018 Nasal congestion 12/08/2016 05/15/2018 documented as of this encounter (statuses as of 06/01/2023) [facility] N[facility]ative* Problem Noted Date Diagnosed Date Resolved Date Helicobacter pylori gastritis 07/08/2017 05/15/2018 Nasal congestion 12/08/2016 05/15/2018 documented as of this encounter (statuses as of 06/25/2023) [facility]* Problem Noted Date Diagnosed Date Resolved Date Helicobacter pylori gastritis 07/08/2017 05/15/2018 Nasal congestion 12/08/2016 05/15/2018 documented as of this encounter (statuses as of 06/29/2023) [facility]ative* Problem Noted Date Diagnosed Date Resolved Date Helicobacter pylori gastritis 07/08/2017 05/15/2018 Nasal congestion 12/08/2016 05/15/2018 documented as of this encounter (statuses as of 07/01/2023) [facility] Diagnosis Prediabetes Other abnormal glucose documented in [facility] encounter [facility]* Diagnosis Gastroesophageal reflux disease, unspecified whether esophagitis present Abdominal cramps Abdominal pain, unspecified site [facility] Well adult exam- Primary Routine general medical examination at a health care facility Mixed hyperlipidemia Elevated hemoglobin A1c Other abnormal blood chemistry Severe anxiety with panic ZAHIDA (obstructive sleep apnea) Obstructive sleep apnea (adult) (pediatric) Obesity, Class II, BMI 35-39.9 Obesity, unspecified Screening for prostate cancer Special screening for malignant neoplasm of prostate Medication management Encounter for long-term (current) use of other medications Leg cramps Cramp of limb Rosacea documented [facility]* Diagnosis Prediabetes Other abnormal glucose [facility]* Diagnosis Severe anxiety with panic documented in this [facility] noteNo assessment information availableWFirelands [facility] Work Phone: Evaluation note* Diagnosis Visit for wound check- Primary Encounter for other specified aftercare Lumbar radiculopathy Thoracic or lumbosacral neuritis or radiculitis, unspecified documented [facility]* Diagnosis Severe anxiety with panic [facility]* Diagnosis Prediabetes Other abnormal glucose [facility] Diagnosis Severe anxiety with panic [facility]* Diagnosis Mixed hyperlipidemia- Primary Elevated hemoglobin A1c Other abnormal blood chemistry Severe anxiety with panic Rosacea Obesity, Class II, BMI 35-39.9 Obesity, unspecified Leg cramps Cramp of limb [facility] Diagnosis Sore throat- Primary Acute pharyngitis URI, acute Acute upper respiratory infections of unspecified site documented [facility] this encounter [facility]* Diagnosis Severe anxiety with panic [facility] Diagnosis Lumbar radiculopathy- Primary Thoracic or lumbosacral neuritis or radiculitis, unspecified Recurrent cold sores Herpes simplex without mention of complication [facility] Diagnosis Sciatica, right side [facility] Diagnosis DDD (degenerative disc disease), lumbar- Primary Degeneration of lumbar or lumbosacral intervertebral disc Prediabetes Other abnormal glucose Left sided sciatica Sciatica [facility]* Diagnosis Severe anxiety with panic Prediabetes Other abnormal glucose [facility]* Diagnosis Well adult exam- Primary Routine general medical examination at a health care facility Mixed hyperlipidemia ZAHIDA (obstructive sleep apnea) Obstructive sleep apnea (adult) (pediatric) Family history of rheumatoid arthritis Family history of arthritis Rosacea Obesity, Class II, BMI 35-39.9 Obesity, unspecified Prediabetes Other abnormal glucose Severe anxiety with panic [facility]* Diagnosis Neck pain Cervicalgia Pain in both hands [facility]* Diagnosis Severe anxiety with panic Prediabetes Other abnormal glucose Rosacea [facility]* Diagnosis Foot pain, right- Primary Pain in limb Acute right ankle pain Foot pain, right Pain in limb Acute right ankle pain documented [facility]* Diagnosis Foot pain, right Pain in limb Acute right ankle pain [facility]* Diagnosis Viral illness- Primary Unspecified viral infection, in conditions classified elsewhere and of unspecified site [facility]* Diagnosis Screening for viral disease- Primary Special screening examination for unspecified viral disease documented [facility]* Diagnosis Wheezing- Primary Sinobronchitis Unspecified sinusitis (chronic) [facility]* Diagnosis Sinobronchitis- Primary Unspecified sinusitis (chronic) Productive cough Cough Productive cough Cough documented [facility]* Diagnosis Productive cough Cough [facility] Additional Instructions Thank you for trusting us with your care today! Please take Tylenol (2 pills, 650 mg), ibuprofen (2 pills, 400 mg) every 6 hours as needed for pain and fever control. Please go to your pharmacy or drugstore and obtain Salonpas lidocaine patches. Please return to the emergency department if your symptoms change or worsen. Specifically develop bowel or bladder incontinence, urinary retention, weakness or loss sensation in your legs, urinary retention. Please follow with your primary care physician for further outpatient evaluation and management.[facility] Work Phone: Reason for referral (narrative)* Outpatient Procedure (Routine) - Closed Specialty Diagnoses / Procedures Referred By Kraig jackson Referred To Contact [facility] Diagnoses Gastroesophageal reflux disease, unspecified whether esophagitis present Abdominal cramps Procedures EGD DIAGNOSTIC ESOPHAGOGASTRODUODENOSC OPY TRANSORAL DIAGNOSTIC Clyde Willoughby MD [address] [place] [address] [facility] [address] [place] [address] Referral ID Status Reason Start Date Expiration Date V isits Requested Visits Authorized [id number] Closed Auto-Generate d Referral 12/18/2021 12/18/2022 1 1 * Outpatient Procedure (Routine) - Closed Specialty Diagnoses / Procedures Referred By Kraig jackson Referred To Contact [facility] Diagnoses Gastroesophageal reflux disease, unspecified whether esophagitis present Abdominal cramps Procedures COLONOSCOPY SCREENING COLONOSCOPY FLX DX W/COLLJ SPEC WHEN Clyde Hernandez MD [address] [place] [address] [facility] [address] [place] [id number] Referral ID Status Reason Start Date Expiration Date V isits Requested Visits Authorized [id number] Closed Auto-Generate d Referral 12/18/2021 12/18/2022 1 1 [facility] for referral (narrative)* Diagnostic Procedure Only (Routine) - Closed Specialty Diagnoses / Procedures Referred By Kraig jackson Referred To Contact XR IMAGING Diagnoses Pain in both hands Procedures XR HAND GENERAL 3V PA/LAT/OBL BILATERAL RADEX HAND MINIMUM 3 VIEWS Marvel Collado MD [address] [place] [address] Xr Imaging [id number] Referral ID Status Reason Start Date Expiration Date V isits Requested Visits Authorized [id number] Closed Auto-Generate d Referral 10/22/2021 11/21/2022 1 1 * Diagnostic Procedure Only (Routine) - Closed Specialty Diagnoses / Procedures Referred By Kraig jackson Referred To Contact XR IMAGING Diagnoses Neck pain Procedures XR CERV OTHER 4V AP/LAT/OBL RADEX SPINE CERVICAL 4 OR 5 VIEWS Marvel Collado MD [address] [place] [address] [place] [id number] Referral ID Status Reason Start Date Expiration Date V isits Requested Visits Authorized [id number] Closed Auto-Generate d Referral 10/22/2021 11/21/2022 1 1 [facility] for referral (narrative)* Diagnostic Procedure Only (Urgent) - Closed Specialty Diagnoses / Procedures Referred By Contac t Referred To Contact XR IMAGING Diagnoses Acute right ankle pain Procedures XR ANKLE GENERAL 3V AP/LAT/OBL RIGHT RADEX ANKLE COMPLETE MINIMUM 3 VIEWS Marvel Knight APRN.CLINICAL PHLEBOTOMIST [address] [place] [address] [place] [address] Referral ID Status Reason Start Date Expiration Date V isits Requested Visits Authorized [id number] Closed Auto-Generate d Referral 07/05/2024 08/04/2025 1 1 * Diagnostic Procedure Only (Urgent) - Closed Specialty Diagnoses / Procedures Referred By Contac t Referred To Contact XR IMAGING Diagnoses Foot pain, right Procedures XR FOOT GENERAL 3V AP/LAT/OBL RIGHT RADEX FOOT COMPLETE MINIMUM 3 VIEWS Marvel Knight APRN.CLINICAL PHLEBOTOMIST [address] [place] [address] [place] [address] Referral ID Status Reason Start Date Expiration Date V isits Requested Visits Authorized [id number] Closed Auto-Generate d Referral 07/05/2024 08/04/2025 1 1 [facility] for referral (narrative)* Diagnostic Procedure Only (Urgent) - Closed Specialty Diagnoses / Procedures Referred By Contac t Referred To Contact XR IMAGING Diagnoses Acute right ankle pain Procedures XR ANKLE GENERAL 3V AP/LAT/OBL RIGHT RADEX ANKLE COMPLETE MINIMUM 3 VIEWS Marvel Knight APRN.CLINICAL PHLEBOTOMIST [address] [place] [address] [place] [address] Referral ID Status Reason Start Date Expiration Date V isits Requested Visits Authorized [id number] Closed Auto-Generate d Referral 07/05/2024 08/04/2025 1 1 * Diagnostic Procedure Only (Urgent) - Closed Specialty Diagnoses / Procedures Referred By Contac t Referred To Contact XR IMAGING Diagnoses Foot pain, right Procedures XR FOOT GENERAL 3V AP/LAT/OBL RIGHT RADEX FOOT COMPLETE MINIMUM 3 VIEWS Marvel Knight APRN.CLINICAL PHLEBOTOMIST [address] [place] [address] [place] [address] Referral ID Status Reason Start Date Expiration Date V isits Requested Visits Authorized [id number] Closed Auto-Generate d Referral 07/05/2024 08/04/2025 1 1 [facility] for visit Narrative* Outpatient Procedure (Routine) - Closed Specialty Diagnoses / Procedures Referred By Contac t Referred To Contact [facility] Diagnoses Gastroesophageal reflux disease, unspecified whether esophagitis present Abdominal cramps Procedures EGD DIAGNOSTIC ESOPHAGOGASTRODUODENOSC OPY TRANSORAL DIAGNOSTIC Clyde Willoughby MD [address] [place] [address] [facility] [address] [place] [address] Referral ID Status Reason Start Date Expiration Date V isits Requested Visits Authorized [id number] Closed Auto-Generate d Referral 12/18/2021 12/18/2022 1 1 [facility] for visit Narrative* Diagnostic Procedure Only (Routine) - Closed Specialty Diagnoses / Procedures Referred By Contac t Referred To Contact XR IMAGING Diagnoses Pain in both hands Procedures XR HAND GENERAL 3V PA/LAT/OBL BILATERAL RADEX HAND MINIMUM 3 VIEWS Marvel Collado MD [address] [place] [address] [place] [address] Referral ID Status Reason Start Date Expiration Date V isits Requested Visits Authorized [id number] Closed Auto-Generate d Referral 10/22/2021 11/21/2022 1 1 [facility] for visit Narrative* Diagnostic Procedure Only (Urgent) - Closed Specialty Diagnoses / Procedures Referred By Contac t Referred To Contact XR IMAGING Diagnoses Acute right ankle pain Procedures XR ANKLE GENERAL 3V AP/LAT/OBL RIGHT RADEX ANKLE COMPLETE MINIMUM 3 VIEWS Marvel Knight APRN.CLINICAL PHLEBOTOMIST [address] [place] [address] [facility] [address] Referral ID Status Reason Start Date Expiration Date V isits Requested Visits Authorized [id number] Closed Auto-Generate d Referral 07/05/2024 08/04/2025 1 1 [facility] Advance Directives Documents on File Type Date Recorded 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 Advance Directive(s) 10/27/2015 7:19 AM Advance Directive(s) 10/02/2015 4:16 PM Documents on File Type Date Recorded 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 Advance Directive(s) 10/27/2015 7:19 AM Advance Directive(s) 10/02/2015 4:16 PM Advance Directive Response Recorded Date/ Time Living Will No October 08, 2022 9:28pm Power of Skatesman No October 08 9:28pm Advance Directive Response Recorded Date/ Time Living Will No June 30 4:22am Power of Skatesman No June 30, 2023 4:22am Reason for Referral Specialty Diagnoses / Procedures Referred By Contac t Referred To Contact Ayse Kumar PA-C [address] [place] [address] Referral ID Status Reason Start Date Expiration Date Visits Re quested Visits Authorized [id number] Denied 1 1 Specialty Diagnoses / Procedures Referred By Contac t Referred To Contact [facility] Diagnoses DDD (degenerative disc disease), lumbar Left sided sciatica Procedures CONSULT TO PHYSICAL THERAPY PHYSICAL THERAPY EVALUATION HIGH COMPLEX 45 MINS Rigoberto Shrestha MD [address] [place] [address] [facility] [address] [place] [address] Referral ID Status Reason Start Date Expiration Date Visits Requested Visits Authorized [id number] Pending Review Auto-Generat ed Referral 12/24/2023 12/23/2024 1 1 Medications Administered Section Inactive Administered Medications - up to 3 most recent administrations Medication Order MAR Action Action Date Dose Rate Site benzocaine 20% 1 Belcher (TOPEX) 1 Belcher, TOPICAL, DIRECTED, Starting on Tue01/20/22 at 0800, Until Tue01/20/22 at 1159, DOSING DIRECTED BY PHYSICIAN FOR PROCEDURAL SEDATION ONLY - Pharmaceutical Waste: Aerosol -, Intraprocedure Given 01/20/2022 7:27 AM EDT 5 Sprays diphenhydrAMINE 12.5-50 mg injection (BENADRYL) 12.5-50 mg, INTRAVENOUS, DIRECTED, Starting on Tue01/20/22 at 0800, Until Tue01/20/22 at 1159, DOSING DIRECTED BY PHYSICIAN FOR PROCEDURAL SEDATION ONLY, Intraprocedure Given 01/20/2022 7:30 AM EDT 50 mg fentaNYL 50 mcg/mL 25-100 mcg injection (SUBLIMAZE) 25-100 mcg, INTRAVENOUS, DIRECTED, Starting on Tue01/20/22 at 0800, Until Tue01/20/22 at 1159, DOSING DIRECTED BY PHYSICIAN FOR PROCEDURAL SEDATION ONLY, Intraprocedure Given 01/20/2022 7:28 AM EDT 50 mcg lactated ringers iv infusion 75 mL/hr, INTRAVENOUS, CONTINUOUS, Starting on Tue01/20/22 at 0700, Until Tue01/20/22 at 0804, Preprocedure New Bag/Syringe/Luanne le 01/20/2022 7:10 AM EDT 75 mL/hr 75 mL/hr Hand, Right midazolam (PF) 1-5 mg injection (VERSED) 1-5 mg, INTRAVENOUS, DIRECTED, Starting on Tue01/20/22 at 0800, Until Tue01/20/22 at 1159, DOSING DIRECTED BY PHYSICIAN FOR PROCEDURAL SEDATION ONLY, Intraprocedure Given 01/20/2022 7:28 AM EDT 3 mg Chief Complaint and Reason for Visit Chief Complaint Blood Flow Screening - Otoniel HEAD INJURY Chief Complaint BACK PAIN Health Concerns Infection Onset Date Last Indicated Resolved Time COVID-19 Rule-Out 05/29/2023 05/29/2023 Infection Onset Date Last Indicated Resolved Time COVID-19 Confirmed 05/29/2023 05/29/2023 Infection Onset Date Last Indicated Resolved Time COVID-19 Rule-Out 05/29/2023 05/29/2023 05/29/2023 9:10 PM EST COVID-19 Confirmed 05/29/2023 05/29/2023 Summary Purpose Family History No Family History Records FoundNo Family History Records Found Additional Source Comments Source Comments (unrecognize d section and content) In the event this informatio n is protected by the Federal Confidentiality of Alcohol and Drug Abuse Patient Records regulations: The Federal rules restrict any use of the information to criminally investigate or prosecute any alcohol or drug abuse patient.[facility] event this information is protected by the Federal Confidentiality of Alcohol and Drug Abuse Patient Records regulations: The Federal rules restrict any use of the information to criminally investigate or prosecute any alcohol or drug abuse patient.[facility] the event this information is protected by the Federal Confidentiality of Alcohol and Drug Abuse Patient Records regulations: The Federal rules restrict any use of the information to criminally investigate or prosecute any alcohol or drug abuse patient.[facility] the event this information is protected by the Federal Confidentiality of Alcohol and Drug Abuse Patient Records regulations: The Federal rules restrict any use of the information to criminally investigate or prosecute any alcohol or drug abuse patient.[facility] the event this information is protected by the Federal Confidentiality of Alcohol and Drug Abuse Patient Records regulations: The Federal rules restrict any use of the information to criminally investigate or prosecute any alcohol or drug abuse patient.[facility] the event this information is protected by the Federal Confidentiality of Alcohol and Drug Abuse Patient Records regulations: The Federal rules restrict any use of the information to criminally investigate or prosecute any alcohol or drug abuse patient.[facility] the event this information is protected by the Federal Confidentiality of Alcohol and Drug Abuse Patient Records regulations: The Federal rules restrict any use of the information to criminally investigate or prosecute any alcohol or drug abuse patient.[facility] the event this information is protected by the Federal Confidentiality of Alcohol and Drug Abuse Patient Records regulations: The Federal rules restrict any use of the information to criminally investigate or prosecute any alcohol or drug abuse patient.[facility] the event this information is protected by the Federal Confidentiality of Alcohol and Drug Abuse Patient Records regulations: The Federal rules restrict any use of the information to criminally investigate or prosecute any alcohol or drug abuse patient.[facility] the event this information is protected by the Federal Confidentiality of Alcohol and Drug Abuse Patient Records regulations: The Federal rules restrict any use of the information to criminally investigate or prosecute any alcohol or drug abuse patient.[facility] the event this information is protected by the Federal Confidentiality of Alcohol and Drug Abuse Patient Records regulations: The Federal rules restrict any use of the information to criminally investigate or prosecute any alcohol or drug abuse patient.[facility] the event this information is protected by the Federal Confidentiality of Alcohol and Drug Abuse Patient Records regulations: The Federal rules restrict any use of the information to criminally investigate or prosecute any alcohol or drug abuse patient.[facility] the event this information is protected by the Federal Confidentiality of Alcohol and Drug Abuse Patient Records regulations: The Federal rules restrict any use of the information to criminally investigate or prosecute any alcohol or drug abuse patient.[facility] the event this information is protected by the Federal Confidentiality of Alcohol and Drug Abuse Patient Records regulations: The Federal rules restrict any use of the information to criminally investigate or prosecute any alcohol or drug abuse patient.[facility] the event this information is protected by the Federal Confidentiality of Alcohol and Drug Abuse Patient Records regulations: The Federal rules restrict any use of the information to criminally investigate or prosecute any alcohol or drug abuse patient.[facility] HospitalIn the event this information is protected by the Federal Confidentiality of Alcohol and Drug Abuse Patient Records regulations: The Federal rules restrict any use of the information to criminally investigate or prosecute any alcohol or drug abuse patient.[facility]In the event this information is protected by the Federal Confidentiality of Alcohol and Drug Abuse Patient Records regulations: The Federal rules restrict any use of the information to criminally investigate or prosecute any alcohol or drug abuse patient.[facility]In the event this information is protected by the Federal Confidentiality of Alcohol and Drug Abuse Patient Records regulations: The Federal rules restrict any use of the information to criminally investigate or prosecute any alcohol or drug abuse patient.[facility]In the event this information is protected by the Federal Confidentiality of Alcohol and Drug Abuse Patient Records regulations: The Federal rules restrict any use of the information to criminally investigate or prosecute any alcohol or drug abuse patient.[facility]In the event this information is protected by the Federal Confidentiality of Alcohol and Drug Abuse Patient Records regulations: The Federal rules restrict any use of the information to criminally investigate or prosecute any alcohol or drug abuse patient.[facility] HospitalIn the event this information is protected by the Federal Confidentiality of Alcohol and Drug Abuse Patient Records regulations: The Federal rules restrict any use of the information to criminally investigate or prosecute any alcohol or drug abuse patient.[facility] HospitalIn the event this information is protected by the Federal Confidentiality of Alcohol and Drug Abuse Patient Records regulations: The Federal rules restrict any use of the information to criminally investigate or prosecute any alcohol or drug abuse patient.[facility] HospitalIn the event this information is protected by the Federal Confidentiality of Alcohol and Drug Abuse Patient Records regulations: The Federal rules restrict any use of the information to criminally investigate or prosecute any alcohol or drug abuse patient.[facility] HospitalIn the event this information is protected by the Federal Confidentiality of Alcohol and Drug Abuse Patient Records regulations: The Federal rules restrict any use of the information to criminally investigate or prosecute any alcohol or drug abuse patient.[facility] HospitalIn the event this information is protected by the Federal Confidentiality of Alcohol and Drug Abuse Patient Records regulations: The Federal rules restrict any use of the information to criminally investigate or prosecute any alcohol or drug abuse patient.[facility] HospitalIn the event this information is protected by the Federal Confidentiality of Alcohol and Drug Abuse Patient Records regulations: The Federal rules restrict any use of the information to criminally investigate or prosecute any alcohol or drug abuse patient.[facility] HospitalIn the event this information is protected by the Federal Confidentiality of Alcohol and Drug Abuse Patient Records regulations: The Federal rules restrict any use of the information to criminally investigate or prosecute any alcohol or drug abuse patient.[facility] HospitalIn the event this information is protected by the Federal Confidentiality of Alcohol and Drug Abuse Patient Records regulations: The Federal rules restrict any use of the information to criminally investigate or prosecute any alcohol or drug abuse patient.[facility] HospitalIn the event this information is protected by the Federal Confidentiality of Alcohol and Drug Abuse Patient Records regulations: The Federal rules restrict any use of the information to criminally investigate or prosecute any alcohol or drug abuse patient.[facility] HospitalIn the event this information is protected by the Federal Confidentiality of Alcohol and Drug Abuse Patient Records regulations: The Federal rules restrict any use of the information to criminally investigate or prosecute any alcohol or drug abuse patient.[facility] HospitalIn the event this information is protected by the Federal Confidentiality of Alcohol and Drug Abuse Patient Records regulations: The Federal rules restrict any use of the information to criminally investigate or prosecute any alcohol or drug abuse patient.[facility] HospitalIn the event this information is protected by the Federal Confidentiality of Alcohol and Drug Abuse Patient Records regulations: The Federal rules restrict any use of the information to criminally investigate or prosecute any alcohol or drug abuse patient.[facility] HospitalIn the event this information is protected by the Federal Confidentiality of Alcohol and Drug Abuse Patient Records regulations: The Federal rules restrict any use of the information to criminally investigate or prosecute any alcohol or drug abuse patient.[facility] HospitalIn the event this information is protected by the Federal Confidentiality of Alcohol and Drug Abuse Patient Records regulations: The Federal rules restrict any use of the information to criminally investigate or prosecute any alcohol or drug abuse patient.[facility] HospitalIn the event this information is protected by the Federal Confidentiality of Alcohol and Drug Abuse Patient Records regulations: The Federal rules restrict any use of the information to criminally investigate or prosecute any alcohol or drug abuse patient.[facility] HospitalIn the event this information is protected by the Federal Confidentiality of Alcohol and Drug Abuse Patient Records regulations: The Federal rules restrict any use of the information to criminally investigate or prosecute any alcohol or drug abuse patient.[facility] HospitalIn the event this information is protected by the Federal Confidentiality of Alcohol and Drug Abuse Patient Records regulations: The Federal rules restrict any use of the information to criminally investigate or prosecute any alcohol or drug abuse patient.[facility] HospitalIn the event this information is protected by the Federal Confidentiality of Alcohol and Drug Abuse Patient Records regulations: The Federal rules restrict any use of the information to criminally investigate or prosecute any alcohol or drug abuse patient.[facility] HospitalIn the event this information is protected by the Federal Confidentiality of Alcohol and Drug Abuse Patient Records regulations: The Federal rules restrict any use of the information to criminally investigate or prosecute any alcohol or drug abuse patient.[facility] HospitalIn the event this information is protected by the Federal Confidentiality of Alcohol and Drug Abuse Patient Records regulations: The Federal rules restrict any use of the information to criminally investigate or prosecute any alcohol or drug abuse patient.[facility] HospitalIn the event this information is protected by the Federal Confidentiality of Alcohol and Drug Abuse Patient Records regulations: The Federal rules restrict any use of the information to criminally investigate or prosecute any alcohol or drug abuse patient.[facility] HospitalIn the event this information is protected by the Federal Confidentiality of Alcohol and Drug Abuse Patient Records regulations: The Federal rules restrict any use of the information to criminally investigate or prosecute any alcohol or drug abuse patient.[facility] HospitalIn the event this information is protected by the Federal Confidentiality of Alcohol and Drug Abuse Patient Records regulations: The Federal rules restrict any use of the information to criminally investigate or prosecute any alcohol or drug abuse patient.[facility] Reason for Visit (unrecogniz ed section and content) Reason Comments Refill Request Reason Comments Medication Problem Reason Comments Patient Question Medication Question Reason Comments Physical Reason Comments Results Reason Onset Date Comments Refill Request 09/28/2022 Reason Comments ER F/U Reason Comments Suture Removal Pt reported ER Visit fall 10/08/2022 maurisio placed back scalp, (RT) sided hip pain. Specialty Diagnoses / Procedures Referred By Sherac t Referred To Contact Internal Medicine / [facility] Diagnoses Encounter for staple removal sciatic nerve pain, staple removal Procedures OFFICE/OUTPATIENT ESTABLISHED MOD MDM 30-39 MIN EST SAME DAY Self Express Cl [facility] [address] [place] [address] Referral ID Status Reason Start Date Expiration Date Visits Re quested Visits Authorized [id number] Closed 10/22/2022 07/10/2023 1 1 Reason Onset Date Comments Refill Request 11/03/2022 Reason Comments Recheck Medication refills Specialty Diagnoses / Procedures Referred By Contac t Referred To Contact Family Medicine / FAMILY MEDICINE Diagnoses Personal history of colonic polyps Medication check Procedures OFFICE/OUTPATIENT ESTABLISHED MOD MDM 30-39 MIN 4C EST Self Marvel Collado MD [address] [place] [address] Referral ID Status Reason Start Date Expiration Date Visits Re quested Visits Authorized [id number] Closed 12/03/2022 07/10/2023 1 1 Reason Comments Cough With CARRASCO, body aches, sore throat, SOB x 2 days Reason Comments Orders Reason Comments note Reason Onset Date Comments Refill Request 06/24/2023 Reason Comments Low Back Pain migrating into right leg x 1 day Reason Comments ER Discharge Summary Reason Comments PT Eval Specialty Diagnoses / Procedures Referred By Contac t Referred To Contact PHYSICAL THERAPY Diagnoses Sciatica, right side Procedures CONSULT TO PHYSICAL THERAPY PHYSICAL THERAPY EVALUATION HIGH COMPLEX 45 MINS Rigoberto Shrestha MD [address] [place] [address] Pt [facility] [address] [place] [address] Referral ID Status Reason Start Date Expiration Date Visits Requested Visits Authorized [id number] Authorized Auto-Generat ed Referral 07/11/2023 07/10/2024 99 99 Reason Comments Back Pain Reason Onset Date Comments Refill Request 01/31/2024 Reason Onset Date Comments Refill Request 05/26/2024 Reason Comments Pain (foot) right x 2 days, twis dinesh Reason Comments Sinus Problem sinus pressure, drai nage, cough x 2 days Reason Comments Patient Question Reason Comments Chest Congestion cough, sinus pressur e x 5 days Reason Comments Follow Up Cough- continues fro m previous visit Reason Onset Date Comments Results 11/24/2024 Care Teams (unrecognized sec tion and content) Marriage And Family Social Worker Relationship Specialty Start Date End Date Marvel Collado MD [address] [place] [address] PCP - General Family Practice 01/20/21 Marriage And Family Social Worker Relationship Specialty Start Date End Date Marvel Collado MD [address] [place] [address] PCP - General Family Practice 01/20/21 Marriage And Family Social Worker Relationship Specialty Start Date End Date Marvel Collado MD [address] [place] [address] PCP - General Family Practice 01/20/21 Marriage And Family Social Worker Relationship Specialty Start Date End Date Marvel Collado MD [address] [place] [address] PCP - General Family Practice 01/20/21 Marriage And Family Social Worker Relationship Specialty Start Date End Date Marvel Collado MD [address] [place] [address] PCP - General Family Practice 01/20/21 Marriage And Family Social Worker Relationship Specialty Start Date End Date Marvel Collado MD [address] [place] [address] PCP - General Family Practice 01/20/21 Marriage And Family Social Worker Relationship Specialty Start Date End Date Marvel Collado MD [address] [place] [address] PCP - General Family Practice 01/20/21 Marriage And Family Social Worker Relationship Specialty Start Date End Date Marvel Collado MD [address] [place] [address] PCP - General Family Medicine 01/20/21 Team Status: Active Member Role Status Dates Dr. Collin Livingston III, MD Family Provider Active Dr. Marvel Collado MD Primary Care Provider Active Team Status: Active Member Role Status Dates Dr. Jose Wright MD Attending Provider [facility] Referring Provider Active Team Status: Inactive Member Role Status Dates Dr. Dg Delong DO Emergency Provider Active Dr. Marvel Collado MD Primary Care Provider Active Marriage And Family Social Worker Relationship Specialty Start Date End Date Marvel Collado MD [address] [place] [address] PCP - General Family Medicine 01/20/21 Marriage And Family Social Worker Relationship Specialty Start Date End Date Marvel Collado MD [address] [place] [address] PCP - General Family Medicine 01/20/21 Marriage And Family Social Worker Relationship Specialty Start Date End Date Marvel Collado MD [address] [place] [address] PCP - General Family Medicine 01/20/21 Marriage And Family Social Worker Relationship Specialty Start Date End Date Marvel Collado MD [address] [place] [address] PCP - General Family Medicine 01/20/21 Marriage And Family Social Worker Relationship Specialty Start Date End Date Marvel Collado MD [address] [place] [address] PCP - General Family Medicine 01/20/21 Marriage And Family Social Worker Relationship Specialty Start Date End Date Marvel Collado MD [address] [place] [address] PCP - General Family Medicine 01/20/21 Marriage And Family Social Worker Relationship Specialty Start Date End Date Marvel Collado MD [address] [place] [address] PCP - General Family Medicine 01/20/21 Marriage And Family Social Worker Relationship Specialty Start Date End Date Marvel Collado MD [address] [place] [address] PCP - General Family Medicine 01/20/21 Marriage And Family Social Worker Relationship Specialty Start Date End Date Marvel Collado MD [address] [place] [address] PCP - General Family Medicine 01/20/21 Marriage And Family Social Worker Relationship Specialty Start Date End Date Marvel Collado MD [address] [place] [address] PCP - General Family Medicine 01/20/21 Marriage And Family Social Worker Relationship Specialty Start Date End Date Marvel Collado MD [address] [place] [address] PCP - General Family Medicine 01/20/21 Team Status: Inactive Member Role Status Dates Dr. Marvel Collado MD Primary Care Provider Active Dr. Migel Loyola DO Emergency Provider Active Marriage And Family Social Worker Relationship Specialty Start Date End Date Rigoberto Shrestha MD [address] [place] [address] PCP - General Family Medicine 07/07/23 Marriage And Family Social Worker Relationship Specialty Start Date End Date Rigoberto Shrestha MD [address] [place] [address] PCP - General Family Medicine 07/07/23 Marriage And Family Social Worker Relationship Specialty Start Date End Date Rigoberto Shrestha MD [address] [place], [place] [id number] PCP - General Family Medicine 07/07/23 Marriage And Family Social Worker Relationship Specialty Start Date End Date Rigoberto Shrestha MD [address] [place] [address] PCP - General Family Medicine 07/07/23 Marriage And Family Social Worker Relationship Specialty Start Date End Date Rigoberto Shrestha MD [address] [place] [address] PCP - General Family Medicine 07/07/23 Marriage And Family Social Worker Relationship Specialty Start Date End Date Rigoberto Shrestha MD [address] [place] [address] PCP - General Family Medicine 07/07/23 Marriage And Family Social Worker Relationship Specialty Start Date End Date Marvel Collado MD [address] [place] [address] PCP - General Family Medicine 01/20/21 07/06/23 Marriage And Family Social Worker Relationship Specialty Start Date End Date Rigoberto Shrestha MD [address] [place] [address] PCP - General Family Medicine 07/07/23 Marriage And Family Social Worker Relationship Specialty Start Date End Date Rigoberto Shrestha MD [address] [place] [address] PCP - General Family Medicine 07/07/23 Marriage And Family Social Worker Relationship Specialty Start Date End Date Rigoberto Shrestha MD [address] [place] [address] PCP - General Family Medicine 07/07/23 Sowmya Ulloa, FUELS ENGINEER.CLINICAL PHLEBOTOMIST [address] [facility] [place] [address] Net Programmer Family Medicine 06/18/24 Natalie Jones FUELS ENGINEER.CLINICAL PHLEBOTOMIST [address] [place] [address] Net Programmer Family Medicine 06/18/24 Marriage And Family Social Worker Relationship Specialty Start Date End Date Rigoberto Shrestha MD [address] [place] [address] PCP - General Family Medicine 07/07/23 Sowmya Ulloa, FUELS ENGINEER.CLINICAL PHLEBOTOMIST [address] [facility] [place] [address] Net Programmer Family Medicine 06/18/24 Natalie Jones FUELS ENGINEER.CLINICAL PHLEBOTOMIST [address] [place] [address] Net Programmer Family Medicine 06/18/24 Marriage And Family Social Worker Relationship Specialty Start Date End Date Rigoberto Shrestha MD [address] [place] [address] PCP - General Family Medicine 07/07/23 Sowmya Ulloa, FUELS ENGINEER.CLINICAL PHLEBOTOMIST [address] [facility] [place] [address] Net Programmer Family Medicine 06/18/24 Natalie Jones APRN.CLINICAL PHLEBOTOMIST [address] [place] [address] Net Programmer Family Medicine 06/18/24 Marriage And Family Social Worker Relationship Specialty Start Date End Date Rigoberto Shrestha MD [address] [place] [address] PCP - General Family Medicine 07/07/23 Sowmya Ulloa APRN.CLINICAL PHLEBOTOMIST [address] [place] [address] Net Programmer Family Medicine 06/18/24 Natalie Jones APRN.CLINICAL PHLEBOTOMIST [address] [place] [address] Net Programmer Family [facility] 06/18/24 Marriage And Family Social Worker Relationship Specialty Start Date End Date Rigoberto Shrestha MD [address] [place] [address] PCP - General Family Medicine 07/07/23 Sowmya Ulloa FUELS ENGINEER.CLINICAL PHLEBOTOMIST [address] [place] [address] Net Programmer Family Medicine 06/18/24 Natalie Jones APRN.CLINICAL PHLEBOTOMIST [address] [place] [address] Net Programmer Family Medicine 06/18/24 Marriage And Family Social Worker Relationship Specialty Start Date End Date Rigoberto Shrestha MD [address] [place], [place] [address] PCP - General Family Medicine 07/07/23 Sowmya Ulloa APRN.CLINICAL PHLEBOTOMIST [address] [place] [address] Net Programmer Family Medicine 06/18/24 Natalie Jones APRN.CLINICAL PHLEBOTOMIST [address] [place] [address] Net Programmer Family Medicine 06/18/24 Marriage And Family Social Worker Relationship Specialty Start Date End Date Rigoberto Shrestha MD [address] [place], [place] [id number] PCP - General Family Medicine 07/07/23 Sowmya Ulloa APRN.CLINICAL PHLEBOTOMIST [address] [place] [address] Net Programmer Family Medicine 06/18/24 Natalie Jones APRN.CLINICAL PHLEBOTOMIST [address] [place] [address] Net Programmer Family [facility] 06/18/24 Marriage And Family Social Worker Relationship Specialty Start Date End Date Rigoberto Shrestha MD [address] [place] [address] PCP - General Family Medicine 07/07/23 Sowmya Ulloa FUELS ENGINEER.CLINICAL PHLEBOTOMIST [address] [place] [address] Net Programmer Family Medicine 06/18/24 Natalie Jones FUELS ENGINEER.CLINICAL PHLEBOTOMIST [address] [place], [place] [address] [phone] Net Programmer Family Medicine 06/18/24 Marriage And Family Social Worker Relationship Specialty Start Date End Date Rigoberto Shrestha MD [address] [place], [place] [address] PCP - General Family Medicine 07/07/23 Sowmya Ulloa APRN.CLINICAL PHLEBOTOMIST [address] [place], [place] [id number] [facility] 06/18/24 Natalie Jones APRN.CLINICAL PHLEBOTOMIST [address] [place] [address] [facility] 06/18/24 Goals (unrecognized section and content) Goals may be documented in a n alternate sectionGoals may be documented in an alternate section (unrecognized sect ion and content) No Status Records FoundNo Status Records Found INFORMATION SOURCE (unrecogn ized section and content) DATE CREATED AUTHOR 10/06/2024 [facility] DATE CREATED AUTHOR AUTHOR'S NICOLE ATFAY 11/25/2024 [facility] FOR RECORDS PERTAINING TO PATIENTS WHO ARE OR HAVE BEEN ENROLLED IN A CHEMICAL DEPENDENCY/SUBSTANCEABUSE PROGRAM, SOME INFORMATION MAY BE OMITTED. This clinical summary was aggregated from multiple sources. Caution should be exercised in using it in the provision of clinical care. This summary normalizes information from multiple sources, and as a consequence, information in this document may materially change the coding, format and clinical context of patient data. In addition, data may be omitted in some cases. CLINICAL DECISIONS SHOULD BE BASED ON THE PRIMARY CLINICAL RECORDS. [facility]. provides no warranty or guarantee of the accuracy or completeness of information in this document.
--- NOTE | 2025-03-11 04:20 | EDS_ITS ---
HPI History of Present Illness Chief Complaint: Anxiety Informant: patient and family Limited: language barrier Narrative Narrative: Patient evaluated for concern of panic attack. Patient was laying down to go to bed when he suddenly felt like he was short of breath and felt unwell. He felt that he was seeing spots and having trouble breathing. He had a sensation of doom. Denies any associated chest pain. States the episode lasted for approximately 20 minutes. Feels like prior panic attacks. Reports that about a month ago he stopped his sertraline because he was feeling better and did not feel he needed it anymore. Denies any associated facial numbness or hand numbness with this. Does note that he has had some tingling to his right foot for the past 2 to 3 months and for the past month his had some itching in the webbing of his fingers at night. No other complaints. Feels back to normal now. States he is otherwise been in his normal state of health. Denies any recent swelling, GI or complaints. Daughters with him at the bedside. Patient is primarily Samoan-speaking and the daughter translates. They do not request a formal hopper filler. [facility] Medical History Hemorrhoids Diabetes Home Medications ?Medication ?Instructions ?Recorded ?Last Taken ?Type cyclobenzaprine 10 mg tablet 10 mg PO TID PRN PRN musc le spasm 06/30/23 Unknown History metformin 500 mg tablet,extended 500 mg PO BID 3 Unknown History release 24 hr hydroxyzine pamoate 25 mg capsule 25 mg PO TID PRN anx iety #20 caps 03/11/25 Unknown Rx (Vistaril) sertraline 50 mg tablet 50 mg PO DAILY #7 tabs 03/11 Unknown Rx Allergy/AdvReac Type Severity Reaction Status Date / Time No Known Allergies Allergy Verified 03/11/25 01:30 Social History Smoking Status: Former smoker ROS ROS ED Constitutional Constitutional ED: Denies chills or fever(s) Cardiovascular Cardiovascular: Denies chest pain or palpitations Respiratory/Chest Respiratory/Chest: Reports dyspnea; Denies cough or dyspnea on exertion Gastrointestinal Gastrointestinal: Denies abdominal pain, nausea or vomiting Musculoskeletal Musculoskeletal: Denies arthralgias or myalgias Integumentary Denies rash Neurologic Neurologic: Reports paresthesias LLE (Left foot for the past 2 to 3-month); Denies weakness Psychiatric Psychiatric: Reports anxiety; Denies depression, suicidal ideation or suicidal thoughts Hematologic/Lymphatic Hematologic/Lymphatic: Denies easy bleeding or easy bruising EXAM Physical Exam Const Vital Signs: 03/11/25 01:30 03/11/25 04:24 Temperature 98.3 F 98 F Temperature Source Oral Pulse Rate 66 64 Respiratory Rate 16 18 Blood Pressure 154/71 H 114/69 Blood Pressure Mean 98 84 Pulse Ox 97 98 Positive well nourished and well developed General Appearance ED: well developed and NAD HEENT Reports moist mucous membranes Eyes PERRL Neck supple and no JVD Chest Wall inspection of chest normal and palpation of chest normal Resp normal respiratory effort and clear to auscultation bilaterally Cardio regular rate, regular rhythm and no murmurs Cardio Narrative: 2+ radial and DP pulses GI normal to inspection, nondistended, normoactive bowel sounds and non-tender Extremity normal to inspection General Extremety ED: Negative for edema or tenderness General Extremity: Negative for edema Neuro oriented x3, CN's II-XII intact bilaterally and no sensory deficits noted Sensorium / Orientation: alert Motor Exam: strength 5/5 throughout; Negative for general weakness Psych mental status grossly normal Mood & Affect: Negative for depressed or anxious Skin no rashes or lesions noted and no wounds MDM MDM MDM Narrative Medical decision making narrative: Patient is evaluated by what he and his daughter describes a panic attack. States he had symptoms like this when he first started his CPAP because it was blowing to it. Stopped his sertraline a month ago which they think is what triggered it. Has since returned to his baseline. Has no physical complaints at this time. Patient's age will obtain a basic workup including chest x-ray, EKG and CBC as well as BMP to ensure he does not have another cause of his symptoms such as pneumothorax, arrhythmia, acute ischemic changes on his EKG, symptomatic anemia or electrolyte derangement. Workup is largely normal. He has a very mild anemia with hemoglobin 12.8 which is nonspecific and I doubt causing symptoms at this time. No report of any active bleeding or hemorrhage. BMP normal except for mildly elevated glucose with a normal anion gap. Patient does take metformin and has a history of prediabetes. Chest x-ray viewed by myself as well as radiology does not show any acute process. EKG does not show any acute ischemic changes or concerning arrhythmia. Given that he has no chest pain I do not think he requires high-sensitivity troponins at this time. Patient reevaluated. Continues to be asymptomatic. Would like to restart his sertraline. Given first dose in the emergency room. Given a prescription for a couple days until he can follow-up with his primary care doctor and be restarted. Counseled on increased risk of anxiety with restarting SSRI. It is currently at a low dose. Given information for the counseling center. Is also given a prescription for as needed hydroxyzine. Discharged home in stable condition. Lab Data Attestation: I reviewed the patient's lab results. Labs: Laboratory Results - last 24 hr 03/11/25 02:57 WBC 7.1 RBC 4.30 L Hgb 12.8 L Hct 37.6 L MCV 87.4 MCH 29.8 MCHC 34.0 RDW Std Deviation 41.4 RDW Coeff of Carter 13.0 Plt Count 248 MPV 9.3 Immature Gran % (Auto) 0.300 Neut % (Auto) 61.9 Lymph % (Auto) 24.0 Sibley % (Auto) 9.5 Eos % (Auto) 3.7 Baso % (Auto) 0.6 Absolute Neuts (auto) 4.4 Absolute Lymphs (auto) 1.70 Nucleated RBC % 0 Sodium 136 Potassium 3.8 Chloride 104 Carbon Dioxide 20.7 L Anion Gap 12 BUN 25 H Creatinine 0.84 Estim Creat Clear Calc 97.52 Est GFR (MDRD) Non-Af 99 BUN/Creatinine Ratio 29.3 H Glucose 164 H Calcium 8.9 Radiography Diagnostic Testing: Clinical Impression(s) from Imaging Studies Chest X-Ray 03/11/25 03:00 IMPRESSION: No evidence for acute abnormality. Reading [facility] Rhythm Strip Rhythm Strip: Sinus Rhythm Rate: 67 Ectopy: None EKG Initial EKG: Attestation: I personally reviewed and interpreted this EKG as follows: Interpretation: Sinus Rhythm Comments: Normal sinus rhythm rate of 67 bpm with sinus arrhythmia Normal axis Normal intervals Normal ST segments Prior EKG tracings: not available for review Prior: No Prior Discharge Plan Triage Chief Complaint: Anxiety ED Provider: Arlin Blount Dx/Rx/DC Orders Clinical Impression: Panic attack Instructions: ED Panic Attack Prescriptions: New sertraline 50 mg tablet 50 mg PO DAILY Qty: 7 0RF hydroxyzine pamoate [Vistaril] 25 mg capsule 25 mg PO TID PRN (Reason: anxiety) Qty: 20 0RF No Action cyclobenzaprine 10 mg tablet 10 mg PO TID PRN PRN (Reason: muscle spasm) Patient Comments: take 1 tablet by mouth three times a day if needed for muscle spasm metformin 500 mg tablet extended release 24 hr 500 mg PO BID Primary Care Provider: Rigoberto Hercules Referrals: Counseling,Center [Group of Physicians] - Rigoberto Hercules MD [Primary Care Provider] - Activity Restrictions/Additional Instructions: Please follow-up with primary care doctor for full refill of his Sertraline. If he is having any worsening psychiatric symptoms please call the counseling center return the emergency room. Print Language: Serbian Disposition Disposition: Home, Self Care Discharge Date/Time: 03/11/25 04:31
[2025-03-11 04:24] VITALS: BP 114/69; PULSE 64; RESP 18; TEMP 36.6; O2SAT 98
== END 2025-03-11 04:31 | disposition home or self-care (01) ==
PROVIDERS: Emergency Provider Emergency Medicine; PCP Family Medicine; Visit Provider Emergency Medicine
DX: F41.0 Panic disorder [episodic paroxysmal anxiety] (principal); E11.9 Type 2 diabetes mellitus without complications; Z87.891 Personal history of nicotine dependence; Z79.84 Long term (current) use of oral hypoglycemic drugs
CPT/HCPCS: 71046; 80048; 85025; 93005; 99284; A4216